=== PATIENT | female | born 1940 | race Caucasian/White ===

== ENCOUNTER → 2023-08-28 15:06 | Outpatient (REF) | payer OTHER, SELFPAY | LOC: DHVS 15:06 | PROVIDERS: ATTENDING PHYSICIAN Surgery Vascular Surgery; FAMILY PHYSICIAN Internal Medicine Geriatric Medicine | DX: I73.9 Peripheral vascular disease, unspecified (principal) | CPT/HCPCS: 93922; 93925 ==

== ENCOUNTER → 2023-09-10 13:27 | Outpatient (REF) | payer MEDICARE, SELFPAY | LOC: HWRAD 13:27 | PROVIDERS: ATTENDING PHYSICIAN Surgery Vascular Surgery; FAMILY PHYSICIAN Internal Medicine Geriatric Medicine | DX: I77.9 Disorder of arteries and arterioles, unspecified (principal) | CPT/HCPCS: 75635; Q9967 ==

== ENCOUNTER → 2023-10-19 13:11 | Outpatient (REF) | payer MEDICARE, SELFPAY | LOC: WDC 13:11 | PROVIDERS: ATTENDING PHYSICIAN Internal Medicine Geriatric Medicine | DX: Z12.31 Encounter for screening mammogram for malignant neoplasm of breast (principal) | CPT/HCPCS: 77063; 77067 ==

== ENCOUNTER 2024-01-05 08:11 | Inpatient (IN) | payer OTHER, SELFPAY ==
[2023-12-30 10:21] VITALS: BMI 28.0
[2023-12-30 10:47] LABS: % Immature Granulocytes 0.2 % (0-0.5); % Lymphocytes 12.1 % (20.5-51.1); % Monocytes 4.1 % (1.7-9.3); % Neutrophils 83.6 % (42.2-75.2); Absolute Lymphocytes 0.6 10^3/uL (1.2-3.4); Absolute Monocytes 0.2 10^3/uL (0.1-0.6); Absolute Neutrophils 4.3 10^3/uL (1.4-6.5); Hematocrit 37.4 % (37.0-47.0); Hemoglobin 13.2 g/dL (12.0-16.0); Mean Corp Hgb Conc. 35.3 g/dL (33.0-37.0); Mean Corpuscular Hgb 33.7 pg (27.0-31.0); Mean Corpuscular Volume 95.4 fL (81.0-99.0); Mean Platelet Volume 9.8 fL (7.4-10.4); Nucleated Red Blood Cells % 0 %; Platelet Count 255 10^3/uL (130-400); Red Blood Cell Count 3.92 10^6/uL (4.20-5.40); White Blood Cell Count 5.1 10^3/uL (4.8-10.8)
[2023-12-30 10:59] LABS: INR 1.17; PT 14.9 Sec (11.4-14.6)
[2023-12-30 11:00] LABS: APTT 37.5 Sec (23.4-35.0)
[2023-12-30 11:15] LABS: Blood Urea Nitrogen 22 mg/dl (7-17); Calcium 10.3 mg/dl (8.4-10.2); Carbon Dioxide 22 mmol/L (22-30); Chloride 101 mmol/L (98-107); Estimated Creatinine Clearance 59 ml/min; Glucose 145 mg/dl (70-99); Potassium 4.5 mmol/L (3.5-5.1); Sodium 135 mmol/L (135-145); eGFR > 60.00
[2024-01-05] VITALS (34 sets, daily range): BP systolic 123–197; BP diastolic 61–119; BMI 28.5
[2024-01-05] MEDS: BACTROBAN NASAL 1 GRAM NASAL (08:52)
[2024-01-05] MEDS: PERIDEX 0.12% ORAL RINSE 15 ML PO (08:52)
[2024-01-05] MEDS: NSS 500 IV (08:52)
--- NOTE | 2024-01-05 10:50 | W.IMMPOSTOP ---
Surgical Immed Post Op Note
-
Primary Surgeon: Brendan Andres III, MD
Assisting Surgeon: Santy Crawley MD
Pre-op Diagnosis: Right femoral artery stenosis
Post-op Diagnosis: Right femoral artery stenosis
Procedure Performed: Right femoral artery endarterectomy & patch angioplasty
Anesthesia Type: General
Specimen / Cultures: NA
Estimated Blood Loss: 20cc
Complications: NA
Operative Findings:
A right groin cutdown was performed to expose the right common femoral artery. Lymphatic tissues and superficial venous branches were tied off. Proximal and distal control of the vessel was obtained. Heparin was administered @ 100u/kg. Using a
scalpel and rivera scissors, an arteriotomy was created. Calcified plaque was freed and removed. A bovine pericardial patch was sized and fashioned to fit the arteriotomy accordingly. Using a running 6-0 prolene suture, the patch was sewn to the
arteriotomy. Antegrade wire access was established through the pericardial patch. The distal SFA was shockwaved and a 7Fr drug coated balloon was used for balloon angioplasty. Angiography following demonstrated brisk open flow. Hemostasis was
reinforced with repair stitches and overlying hemostatic agents. The overlying tissue was closed with running 2-0 and 3-0 vicryls. The skin was closed using alternating florin and 2-0 nylon. Distal extremity pulses were dopplerable following the
procedure.
--- NOTE | 2024-01-05 11:20 | W.SUR.PREOP ---
Pre-Operative Surgical Note
-
I have examined this patient prior to the performance of the scheduled procedure.
The patient's condition is unchanged from the time of the current History and
Physical and the patient is able to undergo the scheduled procedure.
[2024-01-05 12:37] LABS: ACT-LR - POC 285 Seconds (116-155)
[2024-01-05 13:40] LABS: ACT-LR - POC 237 Seconds (116-155)
[2024-01-05] MEDS: SUBLIMAZE 50 MCG IV (15:09)
[2024-01-05] MEDS: NSS 1000 IV (15:37)
[2024-01-05] MEDS: SUBLIMAZE 25 MCG IV (15:39)
[2024-01-05 15:46] LABS: Hematocrit 31.6 % (37.0-47.0); Mean Corp Hgb Conc. 34.8 g/dL (33.0-37.0); Mean Corpuscular Hgb 33.2 pg (27.0-31.0); Mean Corpuscular Volume 95.5 fL (81.0-99.0); Mean Platelet Volume 9.9 fL (7.4-10.4); Platelet Count 202 10^3/uL (130-400); Red Blood Cell Count 3.31 10^6/uL (4.20-5.40); Red Cell Dist. Width 13.2 % (11.5-14.5); White Blood Cell Count 5.6 10^3/uL (4.8-10.8)
[2024-01-05 15:58] LABS: APTT 35.9 Sec (23.4-35.0); INR 1.16; PT 14.6 Sec (11.4-14.6)
--- NOTE | 2024-01-05 16:02 | CON.INTV ---
Consultation
Consultation Request
Date/Time Consultation Requested: 01/05/2024
Date/Time Consultation Performed: 01/05/2024
Requesting Provider: Dr. Andres
Performing Provider: Dr. Yaakov Blake
Reason for Consultation: Status post right femoral artery endarterectomy and patch angioplasty
Medical History
-
History of Present Illness:
83-year-old woman with past medical history significant for peripheral arterial disease and multiple other comorbidities noted. Electively admitted for right femoral revascularization.
Underwent right femoral endarterectomy on 01/05/2024. No immediate complications.
Currently in the critical care unit for hemodynamic monitoring and neurovascular checks per protocol.
Patient denies any particular complaints
Pain is controlled.
Denies any shortness of breath
Hemodynamically stable not requiring vasopressors or antihypertensive.
[facility] records reviewed.
Past Medical History
Past Medical History: Other ( See assessment and plan section)
Social History
Tobacco: Non-smoker
Alcohol: None
Drug: None
Personal:
Living: With Family
Family History
Family History: Reviewed & Not Pertinent
Allergies / Home Medications
Allergies
Allergy/AdvReac Type Severity Reaction Status Date / Time
adhesive tape Allergy Rash Verified 01/05/24 08:58
gluten Allergy Constipation/ Verified 01/05/24 08:58
Abdominal
pain/
Headache
NSAIDS (Non-Steroidal Allergy Oral ulcers Verified 01/05/24 08:58
Anti-Inflamma
oxycodone Allergy Severe Verified 01/05/24 08:58
constipation
Sulfa (Sulfonamide Allergy Diarrhea/Abdominal Verified 01/05/24 08:58
Antibiotics) pain
Home Medications
�Medication �Instructions �Recorded �Confirmed �Last Taken �Type
alprazolam 1 mg tablet 1.5 mg PO HS Mental Health/Anxiety 07/15/09 01/05/24 01/04/24 23:00 History
atorvastatin 10 mg tablet 10 mg PO HS High cholesterol 06/10/21 01/05/24 01/04/24 23:00 History
ascorbic acid (vitamin C) 500 mg 500 mg PO HS Supplement 06/18/21 01/05/24 01/03/24 18:00 History
tablet (Vitamin C)
calcium carbonate 1,200 mg PO QPM Supplement 06/18/21 01/05/24 01/03/24 18:00 History
omega-3 650 mg-dha 400 mg-epa 200 1 ea PO BID Supplement 06/18/21 01/05/24 01/03/24 10:00 History
mg-fish oil-vit D3 300 unit
capsule (Dingle-3 Plus Vitamin D3)
escitalopram oxalate 10 mg tablet 20 mg PO DAILY Depression 07/01/21 01/05/24 01/03/24 10:00 History
Prevagen 1 tab PO DAILY 12/25/23 01/05/24 01/03/24 10:00 History
Saccharomyces boulardii 250 mg 250 mg PO HS 12/25/23 01/05/24 01/02/24 23:00 History
capsule (Florastor)
acetaminophen 650 mg 1,300 mg PO Q12H 12/25/23 01/05/24 01/04/24 23:00 History
tablet,extended release
apixaban 2.5 mg tablet (Eliquis) 5 mg PO BID Blood clot 12/25/23 01/05/24 01/03/24 10:00 History
prevention/tx
diltiazem HCl 120 mg capsule,24 120 mg PO DAILY 12/25/23 01/05/24 01/04/24 08:00 History
hr,extended release
docusate sodium 100 mg capsule 100 mg PO DAILY 12/25/23 01/05/24 01/03/24 10:00 History
fexofenadine-pseudoephedrine ER 1 tab PO DAILY PRN allergies 12/25/23 12/25/23 Unknown History
180 mg-240 mg tablet,ext.release
24 hr (Kiya-D 24 Hour)
mecobalamin (vitamin B12) 1,000 1,000 mcg PO HS 12/25/23 01/05/24 01/03/24 18:00 History
mcg chewable tablet (B12 Active)
sennosides 8.6 mg tablet (senna) 17.2 mg PO DAILY PRN constipation 12/25/23 01/05/24 01/02/24 23:00 History
folic acid 1 mg tablet 2 mg PO DAILY 01/05/24 01/05/24 01/03/24 18:00 History
Review of Systems
-
History Source: Patient
All other systems: Negative unless noted
Vitals / Labs / Diagnostic Testing
Vital Signs
Temp Pulse Resp BP Pulse Ox
97.3 F 69 16 141/64 97
01/05/24 15:55 01/05/24 15:15 01/05/24 15:15 01/05/24 15:15 01/05/24 15:15
Lab Data
01/05/24 15:36
Laboratory Results
01/05/24
15:36
PT 14.6
INR 1.16
APTT 35.9 H
Diagnostic Testing:
Physical Exam
-
HEENT: Normocephalic
Cardiovascular: S1/S2
Respiratory: Clear and Non-Labored Respirations
GI: Soft and Non Distended
Neurology: Awake, Alert, Oriented and No Motor Deficits
Skin: Warm
General: Comfortable
Assessment
-
Right femoral artery stenosis: Status post right femoral artery endarterectomy and patch angioplasty. 01/05/2024-Dr. Andres
Conditions present prior to admission:
Status post left femoral artery endarterectomy with patch angioplasty 06/18/21
Left groin seroma
Status post cut down/drainage of seroma/fat necrosis debridement/copious irrigation and pedicled sartorius muscle flap-Dr. Andres-07/02/21
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
Considered provoked event after long car trip on 04-13-21, total driving time plus sitting down at gathering that day was 9.5 hrs,
DVT diagnosed 04-17-21. RLE doppler US 05-30-21: interval resolution of R gastrocnemius DVT.
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
Osteopenia
Anxiety
Migraine
H/o partial colonic resection for possible volvulus 2009
Basal cell carcinoma skin (nose), removed. Following with Derm-s/p removal of several precancerous skin lesions over the years
Fibromyalgia
Celiac disease
Nonsmoker
Chronic constipation
Osteopenia
Osteoporosis
Malignant neoplasm of the skin
Degenerative joint disease
Raynaud syndrome
Depression
Agoraphobia with panic attacks
Colon resection for possible volvulus
Hyperlipidemia
Celiac disease
Ovarian cyst
Appendectomy/bone marrow biopsy/cataract surgery/cervical cone/thumb joint surgery/exploratory lap for SBO/cervical spine surgery/endarterectomy
Chest x-ray 12/30/2023: Reviewed, showed no acute abnormalities
Echocardiogram 05/06/2022: Reviewed showed normal biventricular function. Stage I diastolic dysfunction. No significant valvular disease.
Plan
Postoperative surgical intensive care unit monitoring
Supplemental oxygen as needed
Incentive spirometry
Aspiration precautions
Neuro and vascular checks per protocol
Vascular surgery following-correspondence and operative notes reviewed analgesia with narcotics as needed. Monitor respiratory status closely.
Follow hemoglobin
Transfuse as needed
Monitor platelet count
Monitor blood sugars
Insulin supplementation if needed
Restart outpatient antihypertensive
Monitor hemodynamics
Replace electrolytes
Monitor renal function
DVT prophylaxis
Early nutrition
Early mobilization
[2024-01-05 16:03] LABS: Blood Urea Nitrogen 17 mg/dl (7-17); Calcium 8.3 mg/dl (8.4-10.2); Carbon Dioxide 24 mmol/L (22-30); Chloride 107 mmol/L (98-107); Estimated Creatinine Clearance 69 ml/min; Glucose 116 mg/dl (70-99); Potassium 4.1 mmol/L (3.5-5.1); Sodium 136 mmol/L (135-145); eGFR > 60.00
[2024-01-05] MEDS: ASPIR LOW (ENTERIC COATED) 81 MG PO (16:18)
--- NOTE | 2024-01-05 16:43 | PTCARENOTE ---
Rec'd patient from PACU around 1600. Patient alert and oriented. Vitals stable. JAYA drain on right groin, green light blinking. Dressing c/d/i. Pulses palpable. Patient educated on plan of care. Hourly neurovascular checks overnight. NSR on tele
monitor. Rate in the 60's. Lung sounds diminished throughout. Pulse ox 96% on 2L nc. Andres in place for critical I/O's. IVFs infusing as ordered through peripheral INT.
--- NOTE | 2024-01-05 16:52 | OR.RPT ---
Operative Report
Operative Report
Date of Operation: 01/05/2024
Pre Op Diagnosis: Severely calcified right common femoral artery and superficial femoral artery occlusive disease with debilitating claudication
Post Op Diagnosis: Severely calcified right common femoral artery and superficial femoral artery occlusive disease with debilitating claudication
Procedure:
1.) RIGHT common femoral artery endarterectomy with patch angioplasty using bovine pericardium
2.) Intravascular lithotripsy to right superficial femoral artery occlusion (7 mm x 60 mm M5+ shockwave balloon)
3.) Drug-coated balloon angioplasty to right superficial femoral artery (6 mm x 220 mm Lutonix drug-coated balloon)
4.) Antegrade diagnostic arteriogram of the right lower extremity
Surgeon: Brendan Andres III, MD
Facetor: Santy Crawley MD PGY-2
Anesthesia: General
Complications: None
Estimated Blood Loss: 100 cc
History and Indications for Procedure: 83-year-old female with severe calcified occlusive disease involving the right common femoral artery and superficial femoral artery manifesting as debilitating right lower extremity claudication.
Procedure in Detail: Anju Pruitt was correctly identified and placed supine on the operating table. After adequate induction of anesthesia, the abdomen, pelvis, and bilateral groins to the thighs were prepped and draped in usual sterile fashion.
Preoperative antibiotics were administered. A time-out procedure was performed with the nursing and anesthesia staff confirming the patient's identity as well as the nature and laterality of the procedure. I made a vertical incision over the right
groin. Electrocautery was used to dissect the subcutaneous tissue. Lymphatics were ligated and divided between silk ties. Through a combination of sharp dissection and electrocautery, I identified the common femoral artery. The common femoral
artery was encircled with a vessel loop underneath the inguinal ligament. I continued dissection on the distal right external iliac artery well under the inguinal ligament to obtain a clamp site. Dissection was then continued distally. The femoral
bifurcation was identified as well as the proximal superficial femoral artery and profunda femoral artery. The proximal superficial femoral artery and proximal profunda femoral artery were both encircled with vessel loops.
The patient was systemically heparinized. After 5 minutes of circulation time, we proceeded with the endarterectomy. The proximal and distal vessel loops were secured. An 11-blade and Jackson scissors were used to make and extend the arteriotomy on
the common femoral artery. The arteriotomy was carried distally to the proximal superficial femoral artery. The arteriotomy was extended up to the proximal common femoral artery. An endarterectomy was performed in the standard fashion with a [place]
elevator. The proximal extent of the plaque was transected and then additional elements of plaque were pulled out from the distal external iliac artery using forceps and clamps. The distal end of the plaque feathered nicely at the origin of the
superficial femoral artery. The endarterectomy plane was then irrigated with heparinized saline solution and any loose fronds of tissue were removed. I brought onto the field a pre-cut piece of bovine pericardium and this was fashioned
appropriately to be used as a patch. The patch was then sewn in place using a running 5-0 Prolene suture. Prior to the completion of the anastomosis, we allowed the artery to forward and back bleed and then flushed the area under the patch to
remove any thrombus or debris. The anastomosis was then completed. The proximal and distal vessel loops were then released. There was an excellent pulse within the common femoral artery, proximal superficial femoral artery and proximal profunda
femoral artery. The suture line was closely inspected for hemostasis which was achieved.
Under direct visualization I then punctured the distal aspect of the patch antegrade with a micropuncture needle. The micro dilator and sheath were then placed. A right lower extremity arteriogram was then performed which demonstrated a heavily
calcified occlusion involving the superficial femoral artery. Distal reconstitution of the popliteal artery was identified. I then upsized to a 7 Bulgarian sheath over a Bentson wire. Under roadmap guidance using a [place] catheter and Glidewire
I navigated across the calcified occlusion in the superficial femoral artery. The catheter and wire were advanced into the popliteal artery distally. I confirmed proper position in the true lumen with an arteriogram. I then exchanged out for a
0.014 wire. Due to the heavily calcified nature of the arterial disease and in an effort to modify the calcium to achieve maximum luminal gain with endovascular intervention I elected to proceed with intravascular lithotripsy. A 7 mm x 60 mm
Shockwave balloon was placed across the calcified occlusive disease under roadmap guidance. Alternating rounds of lithotripsy pulse delivery at sub-nominal pressure and angioplasty at nominal pressure was performed across the stenosis. In between
rounds of pulse delivery and angioplasty the balloon was deflated and repositioned under roadmap guidance. All 300 pulses were delivered.
Subsequent arteriogram demonstrated an excellent technical result. The superficial femoral artery was patent. Several areas of focal dissection were identified. I then brought into position a drug-coated balloon under roadmap guidance. This was
a 6 mm x 220 mm Lutonix DCB. The balloon was positioned in the desired location under roadmap guidance and inflated to nominal pressure. The balloon was held at nominal pressure for 3 minutes before slowly deflating and removing over the wire.
Subsequent arteriogram demonstrated an excellent technical result with a widely patent superficial femoral artery and brisk flow. Several non flow limiting focal dissections were identified in the SFA. No significant residual stenosis was
identified.
Satisfied with this result, we then concluded the procedure. The sheath was removed and the patch puncture site was repaired primarily with 5-0 Prolene suture. Heparin was reversed with protamine. The suture lines were closely inspected for
hemostasis which was achieved. The wound was irrigated with copious amounts of warm saline solution. Hemostasis was achieved within the wound bed. The wound was then closed in multiple layers and sterile dressings were applied.
The patient tolerated the procedure well and was taken to the recovery room in good condition.
Attestation: I was present and responsible for the entire procedure
Signed:
Brendan Andres III, MD
[facility]
[phone] (cell)
[2024-01-05 16:56] LABS: Magnesium 2.2 mg/dl (1.6-2.3)
--- NOTE | 2024-01-05 17:06 | PTCARENOTE ---
Patient tolerating clears.
[2024-01-05] MEDS: OSCAL CAL 500 1000 MG PO (17:37)
--- NOTE | 2024-01-05 17:49 | PTCARENOTE ---
Patient weaned to RA.
[2024-01-05] MEDS: HEPARIN 5000 UNITS SC (19:26)
[2024-01-05] MEDS: COLACE 100 MG PO (19:26)
--- NOTE | 2024-01-05 20:00 | PTCARENOTE ---
Rec'd pt resting in bed, denies pain at present, PRITCHETT, cooperative, SR w/ occas pac/pvc, bp stable, R groin dsg intact w/ deidra dsg- green light on, pedal pulses normal, weak post tibial pulses, feet warm, normal sensation, skin warm/dry, RA, lungs
w/ decr breath sounds in bases, sat 98, enc to use IS- reaches 1500ml, + bowel sounds, no bm, abd rouns, soft, no n/v, jannette diet, duarte draining yellow urine
[2024-01-05] MEDS: VITAMIN C 500 MG PO (21:14)
[2024-01-05] MEDS: FLORASTOR 250 MG PO (21:14)
[2024-01-05] MEDS: TYLENOL 650 MG PO (21:14)
[2024-01-05] MEDS: VITAMIN B-12 1000 MCG PO (21:14)
[2024-01-05] MEDS: LIPITOR 10 MG PO (21:14)
--- NOTE | 2024-01-05 21:16 | PTCARENOTE ---
tylenol 650 mg given for R groin incis pain & chronic R knee pain
[2024-01-05] MEDS: LOPRESSOR 5 MG IV (23:19)
--- NOTE | 2024-01-05 23:20 | PTCARENOTE ---
Adam Landrum NP aware of bp, lopressor 5mg iv given as ordered
[2024-01-06] VITALS (29 sets, daily range): BP systolic 102–175; BP diastolic 42–94; BMI 29.2
[2024-01-06] MEDS: XANAX 1.5 MG PO ×2 (00:05→22:57)
--- NOTE | 2024-01-06 00:10 | PTCARENOTE ---
sys reviewed, bp improved, N/V checks unch
[2024-01-06] MEDS: ROXICODONE 5 MG PO ×4 (00:51→22:37)
--- NOTE | 2024-01-06 00:52 | PTCARENOTE ---
oxycodone 5mg po given for R groin pain
[2024-01-06] MEDS: APRESOLINE 10 MG IV ×2 (00:59→22:34)
--- NOTE | 2024-01-06 01:00 | PTCARENOTE ---
apresoline 10 mg iv given for bp
--- NOTE | 2024-01-06 03:00 | DOWNTIME ---
There was a [employer] Client Tack Driller Downtime on 01/06/2024 from 0100 to 01/06/2024 at 0255. Downtime documentation of patient's care, including medication administrations, has been reconciled in the electronic record per guidelines. Refer to the
patient's paper chart under the miscellaneous tab to see printed paper medication records and downtime forms.
[2024-01-06] MEDS: NSS 1000 IV (03:36)
--- NOTE | 2024-01-06 03:47 | PTCARENOTE ---
sys reviewed, changes noted
[2024-01-06 03:54] LABS: Hematocrit 29.6 % (37.0-47.0); Hemoglobin 10.5 g/dL (12.0-16.0); Mean Corp Hgb Conc. 35.5 g/dL (33.0-37.0); Mean Corpuscular Hgb 33.2 pg (27.0-31.0); Mean Corpuscular Volume 93.7 fL (81.0-99.0); Mean Platelet Volume 10.1 fL (7.4-10.4); Platelet Count 222 10^3/uL (130-400); Red Blood Cell Count 3.16 10^6/uL (4.20-5.40); Red Cell Dist. Width 13.2 % (11.5-14.5); White Blood Cell Count 9.6 10^3/uL (4.8-10.8)
[2024-01-06 04:17] LABS: INR 1.09; PT 13.9 Sec (11.4-14.6)
[2024-01-06 04:18] LABS: APTT 32.8 Sec (23.4-35.0)
[2024-01-06 06:07] LABS: Blood Urea Nitrogen 15 mg/dl (7-17); Calcium 8.8 mg/dl (8.4-10.2); Carbon Dioxide 22 mmol/L (22-30); Chloride 106 mmol/L (98-107); Estimated Creatinine Clearance 70 ml/min; Glucose 121 mg/dl (70-99); Potassium 4.3 mmol/L (3.5-5.1); Sodium 135 mmol/L (135-145); eGFR > 60.00
[2024-01-06] MEDS: COLACE 100 MG PO ×2 (07:14→20:18)
[2024-01-06] MEDS: ASPIR LOW (ENTERIC COATED) 81 MG PO (07:14)
[2024-01-06] MEDS: LEXAPRO 20 MG PO (07:14)
[2024-01-06] MEDS: FOLVITE 2 MG PO (07:14)
[2024-01-06] MEDS: CARDIZEM CD 120 MG PO (07:15)
[2024-01-06] MEDS: HEPARIN 5000 UNITS SC ×2 (07:15→20:18)
[2024-01-06] MEDS: SENOKOT 17.2 MG PO (07:15)
--- NOTE | 2024-01-06 07:45 | SUR.OPER ---
0700 patient in bed. vSS. RT groin pain 6/10 pain scale level. Incision soft to touch . JAYA dressing in place . RT and left posterior tibial artery and left and rt dorsalis pedis present via doppler . Andres draining clear yellow urine. Roxicodone
per prn order adm for pain call harper within reach Neuro check wnl
--- NOTE | 2024-01-06 08:09 | W.PN.VS ---
Addendum entered and electronically signed by Brendan Andres III, MD 01/06/24 12:48:
This patient was seen and examined with LYNDON Albert. I agree with the history and physical exam as well as the assessment and plan.
Signed:
Brendan Andres III, MD
[facility]
[phone] (nhov)
Original Note:
Today's Communication / Plan
-
Patient seen evaluated bedside with Dr. Brendan Andres III, below plan reviewed with attending.
Assessment/Plan
-
Assessment: 83-year-old female POD #1 right femoral endarterectomy with intravascular lithotripsy to right superficial femoral artery occlusion, drug-coated balloon angioplasty to right superficial femoral artery, antegrade diagnostic arteriogram of
the right lower extremity
Plan:
Discontinue Andres catheter
Discontinue IV fluids
Out of bed to chair with progression to ambulation as tolerated
Will restart home anticoagulation of Eliquis likely tomorrow
Continue close ICU monitoring today
PT evaluation
Continue neurovascular checks
Continue to encourage incentive spirometry
Given recent endovascular intervention with drug-coated balloon angioplasty would continue antiplatelet of aspirin 81 mg p.o. daily
Subjective Data
-
Date of Service: January 06, 2024
Patient seen and examined at bedside, offers no complaints. Reports well-managed postoperative pain. Denies nausea, vomiting, fever, and chills.
Objective Data
-
Vital Signs
Temp Pulse Resp BP Pulse Ox
97.5 F 67 11 120/69 94
01/06/24 07:13 01/06/24 07:15 01/06/24 07:13 01/06/24 07:15 01/06/24 06:00
Intake and Output
01/05/24 01/06/24 01/07/24
06:59 06:59 06:59
Intake Total 1960 / 2139 180 / 180
Output Total 2610 / 2935 325 / 325
Balance -650 / -795 -145 / -145
Intake:
Oral fluids 500 / 600 100 / 100
IV fluids (Total) 1460 / 1540 80 / 80
NSS 340 / 340
Nss 1,000 ml @ 80 mls/hr IV . 1120 / 1200 80 / 80
[id number] [facility] Rx#:[id number]
Output:
Urine, Andres 261 / 5 325 / 325
Lab Results
01/06/24 03:41
01/06/24 05:29
Calcium 8.8 mg/dl (8.4-10.2) 01/06/24 05:29
Magnesium 2.2 mg/dl (1.6-2.3) 01/05/24 15:36
Physical Exam
-
AAOx3, no apparent distress
No tachycardia
No dyspnea on room air
ABD soft, nontender, nondistended
Right groin deidra dressing CDI, no evidence of hematoma, all surrounding compartments soft
Right foot warm, DP pulse +1 palpable confirmed with Doppler, PT by Doppler
--- NOTE | 2024-01-06 08:49 | PTCARENOTE ---
OOB chair one person minimum assist with RW for balance. OOB chair. Indwelling Andres removed at 08:30 . call harper and phone within reach
--- NOTE | 2024-01-06 08:49 | W.PN.INTV ---
Today's Communication / Plan
Recommendations
Continue postoperative care
Increase activity as able
Physical therapy
Eventually restart anticoagulation
Analgesia
Assessment
-
Right femoral artery stenosis: Status post right femoral artery endarterectomy and patch angioplasty. 01/05/2024-Dr. Andres
Conditions present prior to admission:
Status post left femoral artery endarterectomy with patch angioplasty 06/18/21
Left groin seroma
Status post cut down/drainage of seroma/fat necrosis debridement/copious irrigation and pedicled sartorius muscle flap-Dr. Andres-07/02/21
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
Considered provoked event after long car trip on 04-13-21, total driving time plus sitting down at gathering that day was 9.5 hrs,
DVT diagnosed 04-17-21. RLE doppler US 05-30-21: interval resolution of R gastrocnemius DVT.
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
Osteopenia
Anxiety
Migraine
H/o partial colonic resection for possible volvulus 2009
Basal cell carcinoma skin (nose), removed. Following with Derm-s/p removal of several precancerous skin lesions over the years
Fibromyalgia
Celiac disease
Nonsmoker
Chronic constipation
Osteopenia
Osteoporosis
Malignant neoplasm of the skin
Degenerative joint disease
Raynaud syndrome
Depression
Agoraphobia with panic attacks
Colon resection for possible volvulus
Hyperlipidemia
Celiac disease
Ovarian cyst
Appendectomy/bone marrow biopsy/cataract surgery/cervical cone/thumb joint surgery/exploratory lap for SBO/cervical spine surgery/endarterectomy
Chest x-ray 12/30/2023: Reviewed, showed no acute abnormalities
Echocardiogram 05/06/2022: Reviewed showed normal biventricular function. Stage I diastolic dysfunction. No significant valvular disease.
Plan
Postoperative day 1
Stable hemodynamically overnight pain is controlled
Currently sitting out of bed
Not requiring supplemental oxygen
Increase activity as tolerated
Incentive spirometry encouraged
Neuro and vascular checks per protocol
Vascular surgery following-maintain ICU level of care for now.
Follow hemoglobin currently 10.5. Stable
No evidence for hematoma on bilateral groin
Monitor blood sugars
Insulin supplementation if needed
Continue outpatient antihypertensive medication.
Blood pressure still
DVT prophylaxis-heparin subcu for now.
Restart anticoagulation when cleared by surgery
Physical therapy/Occupational Therapy as tolerated
-
Maintain ICU level of care with neurovascular checks until cleared by vascular surgery.
Patient is transfer out of the ICU, critical care team will sign off.
Subjective Dataa
Subjective Data
Date of Service:
Date of Service: January 06, 2024
Chief Complaint: Er Manager Follow Up (Status post femoral endarterectomy)
Subjective:
Patient states that her pain is controlled.
Currently sitting out of bed.
Denies shortness of breath or any abdominal discomfort.
Tolerated diet last night.
Review of Systems
Cardiopulmonary: Dyspnea (n) and Dyspnea on Exertion (n)
GI: Abdominal Pain (n) and Nausea (n)
Objective Data
Data Reviewed
Vital Signs / I&O / Oxygen:
Vital Signs
Temp Pulse Resp BP Pulse Ox
97.5 F 67 11 120/69 94
01/06/24 07:13 01/06/24 07:15 01/06/24 07:13 01/06/24 07:15 01/06/24 06:00
Intake and Output
01/05/24 01/06/24 01/07/24
06:59 06:59 06:59
Intake Total 1960 / 2140 180 / 180
Output Total 2610 / 2935 325 / 325
Balance -650 / -795 -145 / -145
SaO2 94
Nasal Cannula flow liters per 2
minute
Physical Exam
General: Respiratory Distress (n) and Comfortable
HEENT: Normocephalic
Cardiovascular: S1-S2
Respiratory: Clear and Non-Labored Respirations
GI: Soft and Non Distended
Neurology: Awake, Alert and AO x 3
Skin: Warm, Other (Peripheral pulses present) and Other (Bilateral groin incisions without hematoma)
Labs/Micro/Reports
Lab Data
01/06/24 03:41
01/06/24 05:29
Laboratory Results
01/05/24 01/06/24
15:36 03:41
PT 14.6 13.9
INR 1.16 1.09
APTT 35.9 H 32.8
--- NOTE | 2024-01-06 11:59 | PN.CDI ---
CDI
- -
CDI:
Physician Documentation Request
Admit Date: 01/05/24 08:11
Dear Radha HANEY,
Please review the following and provide your response in the progress notes.
Clinical Indicators:
The diagnosis of atelectasis was included in the signed CXR on 01/05/24
Pt admitted for right femoral artery endarterectomy and patch angioplasty
01/05/24 CXR: 'Top normal in size. No evidence of congestive heart failure. Subtle linear stranding at the left lung base, consistent with atelectasis...'
01/05 Vascular Surg. PN: 'Continue to encourage incentive spirometry'
Please indicate in your progress notes if you are in agreement that the above diagnosis is valid for this patient:
Atelectasis is a valid diagnosis (Please include it in your progress notes)
Atelectasis is not a valid diagnosis for this patient
Other
Use of terms such as suspected, likely, concern for, or probable are acceptable for a diagnosis that is being evaluated, monitored or treated as if it exists and can be coded in the inpatient setting, when documented at the time of discharge.
Thank you,
Jen Galindo RN, BSN
CDI Specialist
Available via [place] [employer]
Please use your independent medical judgment in providing your response.
--- NOTE | 2024-01-06 14:48 | CM ---
CM following re: discharge planning.
Reviewed pt's chart, met with pt.
Pt is an 83 year old female, admitted with primary dx of POD #1 right femoral endarterectomy.
Pt reports she has been living with her in an independent apartment at [facility], has2 supportive daughters. 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 No DME, VN or SNF history. pt stated she is awaiting PT evaluations,
she feels she will need VN services and pt is requested [facility] VN.
PT and OT evaluations pending.
PCP: Filemon Roach
Pharmacy: [facility].
D/C plan; return back to her independent apartment at [facility] with anticipated [facility] VN and family support. to transport at discharge.
CM will follow with discharge plan updates as hospitalization progresses
--- NOTE | 2024-01-06 15:20 | PTCARENOTE ---
Patient ambulated from room 3364 to back IMU and back with walker and without without difficulties . Good balance and gait . Aware of her physical limitations
[2024-01-06] MEDS: OSCAL CAL 500 1000 MG PO (18:16)
--- NOTE | 2024-01-06 21:19 | PTCARENOTE ---
received patient from previous shift. alert and orientated. sitting up in chair visiting her family. pills taken by mouth. no c/o pain. ambulated the the BR with one assist and a walker. doppler pulses.
[2024-01-06] MEDS: VITAMIN C 500 MG PO (21:26)
[2024-01-06] MEDS: FLORASTOR 250 MG PO (21:26)
[2024-01-06] MEDS: VITAMIN B-12 1000 MCG PO (21:26)
[2024-01-06] MEDS: LIPITOR 10 MG PO (21:27)
[2024-01-07] VITALS (28 sets, daily range): BP systolic 100–150; BP diastolic 54–92; BMI 29.1
--- NOTE | 2024-01-07 03:30 | PTCARENOTE ---
pt ambulating to the bathroom with one assist and a walker. BP elevate given PRN hydralazine as ordered. pt also c/o a headache. given PRN oxy.
[2024-01-07 04:07] LABS: Hematocrit 31.9 % (37.0-47.0); Hemoglobin 11.2 g/dL (12.0-16.0); Mean Corp Hgb Conc. 35.1 g/dL (33.0-37.0); Mean Corpuscular Hgb 32.7 pg (27.0-31.0); Platelet Count 211 10^3/uL (130-400); Red Blood Cell Count 3.43 10^6/uL (4.20-5.40); Red Cell Dist. Width 13.5 % (11.5-14.5); White Blood Cell Count 11.3 10^3/uL (4.8-10.8)
[2024-01-07 04:31] LABS: Blood Urea Nitrogen 16 mg/dl (7-17); Carbon Dioxide 24 mmol/L (22-30); Chloride 100 mmol/L (98-107); Estimated Creatinine Clearance 70 ml/min; Glucose 106 mg/dl (70-99); Potassium 4.2 mmol/L (3.5-5.1); Sodium 130 mmol/L (135-145); eGFR > 60.00
[2024-01-07] MEDS: ROXICODONE 5 MG PO (06:37)
--- NOTE | 2024-01-07 08:00 | PTCARENOTE ---
Assumed care of patient. Pt rec'd A&Ox3. Pleasant. Had rec'd po oxy this am....post pain assessment as follow -> 0/10 pain while lying still. 4-5/10 right groin area w/ activity. S1 S2 irregular w/ NSR/PAC's on monitor. DP/PT's by doppler. On
R/A...sats 98%. Lungs clear. Abdomen round...+BS. Encouraged to order breakfast. Takes po meds w/o issue. Voids in bathroom. Skin pale in color. Right groin CHAN w/ florin and sutures....JAYA dressing removed by vascular team. LH 18P capped.
LFA 20P capped. LAC 18P capped. Low cholesterol/gluten free diet. Breakfast ordered. VS documented. Call harper within reach. Will continue to monitor.
[2024-01-07] MEDS: COLACE 100 MG PO ×2 (08:28→20:35)
[2024-01-07] MEDS: SENOKOT 17.2 MG PO (08:28)
[2024-01-07] MEDS: CARDIZEM CD 120 MG PO (08:29)
[2024-01-07] MEDS: FOLVITE 2 MG PO (08:29)
[2024-01-07] MEDS: HEPARIN 5000 UNITS SC (08:29)
[2024-01-07] MEDS: ASPIR LOW (ENTERIC COATED) 81 MG PO (08:29)
[2024-01-07] MEDS: LEXAPRO 20 MG PO (08:29)
[2024-01-07] MEDS: LOPRESSOR 5 MG IV (08:39)
--- NOTE | 2024-01-07 08:45 | W.PN.VS ---
Addendum entered and electronically signed by Brendan Andres III, MD 01/07/24 14:57:
This patient was seen and examined with LYNDON Patel. I agree with the history and physical exam as well as the assessment and plan.
Signed:
Brendan Andres III, MD
[facility] Vascular Surgery
[phone] (ylot)
Original Note:
Today's Communication / Plan
-
Seen and assessed with Dr. Andres
Assessment/Plan
-
Assessment: 83-year-old female POD #2 right femoral endarterectomy with intravascular lithotripsy to right superficial femoral artery occlusion, drug-coated balloon angioplasty to right superficial femoral artery, antegrade diagnostic arteriogram of
the right lower extremity
Plan:
Ambulation
Restart Eliquis
EKG
Lopressor 5 mg IV
Cardiology consult for A-fib
Continue to encourage incentive spirometry
Given recent endovascular intervention with drug-coated balloon angioplasty would continue antiplatelet of aspirin 81 mg p.o. daily
Subjective Data
-
Date of Service: January 07, 2024
Patient seen at bedside this a.m. with Dr. Andres. Patient did well overnight, no events. No complaints at this time. Patient noted to be tachycardic starting this morning. Asymptomatic.
Objective Data
-
Vital Signs
Temp Pulse Resp BP Pulse Ox
99.1 F 140 20 112/70 97
01/07/24 07:31 01/07/24 08:39 01/07/24 06:02 01/07/24 08:39 01/06/24 21:09
Intake and Output
01/06/24 01/07/24 01/08/24
06:59 06:59 06:59
Intake Total 1960 / 2140 1110 / 1110
Output Total 2610 / 2935 675 / 675
Balance -650 / -795 435 / 435
Intake:
Oral fluids 500 / 600 1030 / 1030
IV fluids (Total) 1460 / 1540 80 / 80
NSS 340 / 340
Nss 1,000 ml @ 80 mls/hr IV . 1120 / 1200 80 / 80
[id number] [facility] Rx#:[id number]
Output:
Urine, Andres 2610 / 2935 525 / 525
Urine, Voided 150 / 150
Other:
Number of approximated LARGE 1
amounts of urine
Lab Results
01/07/24 03:50
01/07/24 03:50
Calcium 9.0 mg/dl (8.4-10.2) 01/07/24 03:50
Magnesium 2.2 mg/dl (1.6-2.3) 01/05/24 15:36
Physical Exam
-
AAOx3, no apparent distress
Tachycardia 120-140
No dyspnea on room air
ABD soft, nontender, nondistended
Right groin deidra dressing CDI, no evidence of hematoma, all surrounding compartments soft
Right foot warm, DP pulse +1 palpable confirmed with Doppler, PT by Doppler
[2024-01-07] MEDS: ELIQUIS 5 MG PO ×2 (08:58→20:35)
--- NOTE | 2024-01-07 09:00 | PTCARENOTE ---
aware of pt's afib on monitor. ECG done. Cardiology consulted. Will monitor closely.
--- NOTE | 2024-01-07 10:14 | CON.CAR ---
Consultation
Consultation Request
Date/Time Consultation Requested: 01/07/24, 9am
Date/Time Consultation Performed: 01/07/24, 930am
Requesting Provider: Mckenna
Performing Provider: Troy
Reason for Consultation: A fib with RVR
Medical History
-
Chief Complaint: A fib with RVR on tele
History of Present Illness:
83 yo female with PMH of paroxysmal A fib on eliquis, PAD, HTN, hyperlipidemia is admitted POD #1 s/p right femoral endarterectomy with intravascular lithotripsy to right superficial femoral artery occlusion, drug-coated balloon angioplasty to right
superficial femoral artery, antegrade diagnostic arteriogram of the right lower extremity.
We are consulted with A fib with RVR, noted on tele this AM.
She denies palps, SOB, CP, dizziness.
Past Medical History
Past Medical History: Arrhythmias (paroxysmal A fib), HTN, Hypercholesterolemia and Other (PAD)
Past Surgical History: Appendectomy and Other ( femoral endarterectomy)
Social History
Tobacco: Non-Smoker
Family History
Family History: Early CAD (none)
Allergies / Home Medications
Allergy/AdvReac Type Severity Reaction Status Date / Time
adhesive tape Allergy Rash Verified 01/05/24 08:58
gluten Allergy Constipation/ Verified 01/05/24 08:58
Abdominal
pain/
Headache
NSAIDS (Non-Steroidal AdvReac Oral ulcers Verified 01/05/24 16:39
Anti-Inflamma
oxycodone AdvReac Severe Verified 01/05/24 16:39
constipation
Sulfa (Sulfonamide AdvReac Diarrhea/Abdominal Verified 01/05/24 16:39
Antibiotics) pain
�Medication �Instructions �Recorded �Confirmed �Type
alprazolam 1 mg tablet 1.5 mg PO HS Mental Health/Anxiety 07/15/09 01/05/24 History
atorvastatin 10 mg tablet 10 mg PO HS High cholesterol 06/10/21 01/05/24 History
ascorbic acid (vitamin C) 500 mg 500 mg PO HS Supplement 06/18/21 01/05/24 History
tablet (Vitamin C)
calcium carbonate 1,200 mg PO QPM Supplement 06/18/21 01/05/24 History
omega-3 650 mg-dha 400 mg-epa 200 1 ea PO BID Supplement 06/18/21 01/05/24 History
mg-fish oil-vit D3 300 unit
capsule (Marion-3 Plus Vitamin D3)
escitalopram oxalate 10 mg tablet 20 mg PO DAILY Depression 07/01/21 01/05/24 History
Prevagen 1 tab PO DAILY Supplement 12/25/23 01/05/24 History
Saccharomyces boulardii 250 mg 250 mg PO HS Supplement 12/25/23 01/05/24 History
capsule (Florastor)
acetaminophen 650 mg 1,300 mg PO Q12H Pain 12/25/23 01/05/24 History
tablet,extended release
apixaban 2.5 mg tablet (Eliquis) 5 mg PO BID Blood clot 12/25/23 01/05/24 History
prevention/tx
diltiazem HCl 120 mg capsule,24 120 mg PO DAILY Heart 12/25/23 01/05/24 History
hr,extended release Disease/Condition
docusate sodium 100 mg capsule 100 mg PO DAILY STOOL SOFTENER 12/25/23 01/05/24 History
fexofenadine-pseudoephedrine ER 1 tab PO DAILY PRN allergies 12/25/23 12/25/23 History
180 mg-240 mg tablet,ext.release
24 hr (Kiya-D 24 Hour)
mecobalamin (vitamin B12) 1,000 1,000 mcg PO HS Supplement 12/25/23 01/05/24 History
mcg chewable tablet (B12 Active)
sennosides 8.6 mg tablet (senna) 17.2 mg PO DAILY PRN constipation 12/25/23 01/05/24 History
folic acid 1 mg tablet 2 mg PO DAILY Supplement 01/05/24 01/05/24 History
Review of Systems
-
History Source: Patient
All other systems: Negative unless noted
Musculoskeletal: Other (leg pain/stiffness)
Physical Exam
Vital Signs
Temp Pulse Resp BP Pulse Ox
99.1 F 140 20 112/70 97
01/07/24 07:31 01/07/24 08:39 01/07/24 06:02 01/07/24 08:39 01/06/24 21:09
Lab Results
01/07/24 03:50
01/07/24 03:50
Physical Exam
General: Well Developed, Well Nourished and No Apparent Distress
HEENT: Normocephalic, Anicteric and Moist Mucous Membranes
Respiratory: Clear and Non Labored Respirations
Cardiac: S1/S2 (normal), Irregular Rhythm (tachycardic), Murmur (none), Peripheral Edema (none) and JVD (none)
GI: Soft and Non Tender
Musculoskeletal: No Clubbing, No Cyanosis and No Edema
Skin: Warm and Dry
Neuro: AO x 3
Psych: Calm
Impression / Plan
-
83 yo female with PMH of paroxysmal A fib on eliquis, PAD, HTN, hyperlipidemia is admitted POD #1 s/p right femoral endarterectomy with intravascular lithotripsy to right superficial femoral artery occlusion, drug-coated balloon angioplasty to right
superficial femoral artery, antegrade diagnostic arteriogram of the right lower extremity.
We are consulted with A fib with RVR, noted on tele this AM.
# A fib with RVR
-h/o paroxysmal A fib
-eliquis 5mg bid has been resumed
-tele shows A fib occurred this AM around 0800, and was in sinus prior
-will use IV amiodarone to attempt rhythm control
-requires monitoring of tele
# PAD
-post op care per vascular surgery
-cont ASA, statin
# HTN
-BP stable: continue diltiazem
Data Reviewed
-
EKG: Tracing Personally Visualized and interpreted (A fib with RVR) and Other (Tele: NSR --> A fib with RVR)
Labs: Labs Reviewed by me
Old Records: Reviewed
[2024-01-07] MEDS: CORDARONE 103 MG IV (11:00)
--- NOTE | 2024-01-07 11:07 | W.PN.INTV ---
Today's Communication / Plan
Recommendations
Continue postoperative care
Continue Cardizem
Anticoagulation restarted
Cardiology consulted for atrial fibrillation
Transferred to telemetry from my perspective
Sign off
Assessment
-
Right femoral artery stenosis: Status post right femoral artery endarterectomy and patch angioplasty. 01/05/2024-Dr. Andres
New onset atrial fibrillation 01/07/2024
Conditions present prior to admission:
Status post left femoral artery endarterectomy with patch angioplasty 06/18/21
Left groin seroma
Status post cut down/drainage of seroma/fat necrosis debridement/copious irrigation and pedicled sartorius muscle flap-Dr. Andres-07/02/21
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
Considered provoked event after long car trip on 04-13-21, total driving time plus sitting down at gathering that day was 9.5 hrs,
DVT diagnosed 04-17-21. RLE doppler US 05-30-21: interval resolution of R gastrocnemius DVT.
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
Osteopenia
Anxiety
Migraine
H/o partial colonic resection for possible volvulus 2009
Basal cell carcinoma skin (nose), removed. Following with Derm-s/p removal of several precancerous skin lesions over the years
Fibromyalgia
Celiac disease
Nonsmoker
Chronic constipation
Osteopenia
Osteoporosis
Malignant neoplasm of the skin
Degenerative joint disease
Raynaud syndrome
Depression
Agoraphobia with panic attacks
Colon resection for possible volvulus
Hyperlipidemia
Celiac disease
Ovarian cyst
Appendectomy/bone marrow biopsy/cataract surgery/cervical cone/thumb joint surgery/exploratory lap for SBO/cervical spine surgery/endarterectomy
Chest x-ray 12/30/2023: Reviewed, showed no acute abnormalities
Echocardiogram 05/06/2022: Reviewed showed normal biventricular function. Stage I diastolic dysfunction. No significant valvular disease.
Plan
Postoperative day 2
Overnight developed rapid atrial fibrillation. New onset. Asymptomatic.
Anticoagulation restarted which she takes for DVT.
Cardiology has been consulted
Continue outpatient Cardizem
-
Continue to increase activity as tolerated.
Not requiring supplemental oxygen
Incentive spirometry encouraged
Neuro and vascular checks per protocol-currently neurologically intact.
Vascular surgery following-maintain ICU level of care for now.
Hemoglobin has been stable
No evidence for hematoma on bilateral groin
Continue outpatient antihypertensive medication.
Normotensive.
DVT prophylaxis-Anticoagulation restarted
Physical therapy/Occupational Therapy as tolerated
-
Okay to transfer to telemetry from my perspective.
No additional recommendation from the critical care perspective
Sign off
Subjective Dataa
Subjective Data
Date of Service:
Date of Service: January 07, 2024
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
Subjective:
Patient offers no new complaints
Her pain is controlled
Denies chest pain, shortness of breath or lightheadedness
Tolerating diet
Review of Systems
General: Fever (n)
Cardiopulmonary: Dyspnea (n) and Cough
GI: Abdominal Pain (n), Nausea (n) and Vomiting (n)
Neuro: Headache (n)
Objective Data
Data Reviewed
Vital Signs / I&O / Oxygen:
Vital Signs
Temp Pulse Resp BP Pulse Ox
99.1 F 99 21 100/66 97
01/07/24 07:31 01/07/24 11:02 01/07/24 11:02 01/07/24 11:02 01/06/24 21:09
Intake and Output
01/06/24 01/07/24 01/08/24
06:59 06:59 06:59
Intake Total 1959 / 2139 1110 / 1110
Output Total 2610 / 2935 675 / 675
Balance -650 / -795 435 / 435
SaO2 97
Nasal Cannula flow liters per 2
minute
Physical Exam
General: Respiratory Distress (n) and Comfortable
HEENT: Normocephalic
Cardiovascular: S1-S2 and Irregular Rhythm
Respiratory: Clear and Non-Labored Respirations
GI: Soft and Non Distended
Neurology: Awake, Alert and AO x 3
Skin: Warm, Other (Peripheral pulses present) and Other (Bilateral groin incisions without hematoma)
Labs/Micro/Reports
Lab Data
01/07/24 03:50
01/07/24 03:50
[2024-01-07] MEDS: CORDARONE 518 MG IV (11:12)
--- NOTE | 2024-01-07 11:15 | PTCARENOTE ---
Amiodarone bolus and gtt initiated per protocol after pt seen by from cardiology. Pt made aware of plan of care and that she will tentatively d/c to home tmr.
--- NOTE | 2024-01-07 12:00 | PTCARENOTE ---
No major changes in physical assessment. Pt converted to NSR... aware. Pt to remain on amiodarone gtt for now. ECG in am. Pt resting comfortably w/o issue. Call harper within reach.
[2024-01-07] MEDS: TYLENOL 650 MG PO ×2 (14:14→23:38)
--- NOTE | 2024-01-07 15:07 | CM ---
CM following re: discharge planning.
Reviewed pt's chart, met with pt. Pt is POD #2 right femoral endarterectomy. Per Rounds meeting, continue supportive care
PT and OT evaluations noted - no skilled PT/OT needs indicated.
D/C plan: D/C plan; return back to her independent apartment at [facility] with family support. to transport at discharge.
CM will follow with discharge plan updates as hospitalization progresses
--- NOTE | 2024-01-07 15:37 | W.PN.UPDATE ---
Update Note
Progress Note Update
Patient converted to sinus rhythm. Cardiology following the patient
Hemodynamically stable.
Asymptomatic.
Will transfer to telemetry.
Critical care team will sign off.
--- NOTE | 2024-01-07 15:45 | PTCARENOTE ---
Orders rec'd to transfer to tele when bed available.
--- NOTE | 2024-01-07 15:47 | W.PN.UPDATE ---
Update Note
Progress Note Update
In response to CDI
Clinical Indicators:
The diagnosis of atelectasis was included in the signed CXR on 01/05/24
Pt admitted for right femoral artery endarterectomy and patch angioplasty
01/05/24 CXR: 'Top normal in size. No evidence of congestive heart failure. Subtle linear stranding at the left lung base, consistent with atelectasis...'
01/05 Vascular Surg. PN: 'Continue to encourage incentive spirometry'
Please indicate in your progress notes if you are in agreement that the above diagnosis is valid for this patient:
Other cannot verify diagnosis of atelectasis solely on radiographic imaging alone, patient does not have any physial exam findings to support diagnosis
--- NOTE | 2024-01-07 16:15 | PTCARENOTE ---
New JAYA dressing applied by Radha WHIPPLE.
--- NOTE | 2024-01-07 16:32 | W.PN.UPDATE ---
Update Note
Progress Note Update
JYAA dressing changed by the provider and replaced with new JAYA, tolerated. Suture/staple line well approximated, no drainage, no edema. CDI.
--- NOTE | 2024-01-07 16:50 | PTCARENOTE ---
Report called to Marcia VASQUEZ on . Pt to transfer to Room 2126. Belongings to go w/ patient.
[2024-01-07] MEDS: OSCAL CAL 500 1000 MG PO (17:04)
[2024-01-07] MEDS: LIPITOR 10 MG PO (20:35)
[2024-01-07] MEDS: FLORASTOR 250 MG PO (20:35)
[2024-01-07] MEDS: VITAMIN B-12 1000 MCG PO (20:35)
[2024-01-07] MEDS: VITAMIN C 500 MG PO (20:43)
[2024-01-07] MEDS: XANAX 1.5 MG PO (23:30)
[2024-01-08] VITALS (8 sets, daily range): BP systolic 109–166; BP diastolic 55–87; PULSE 74; BMI 29.2
[2024-01-08 07:28] LABS: Hematocrit 29.4 % (37.0-47.0); Hemoglobin 10.5 g/dL (12.0-16.0); Mean Corp Hgb Conc. 35.7 g/dL (33.0-37.0); Mean Corpuscular Hgb 33.8 pg (27.0-31.0); Mean Corpuscular Volume 94.5 fL (81.0-99.0); Mean Platelet Volume 10.4 fL (7.4-10.4); Platelet Count 173 10^3/uL (130-400); Red Blood Cell Count 3.11 10^6/uL (4.20-5.40); Red Cell Dist. Width 13.2 % (11.5-14.5); White Blood Cell Count 7.8 10^3/uL (4.8-10.8)
[2024-01-08 07:55] LABS: Blood Urea Nitrogen 13 mg/dl (7-17); Calcium 8.5 mg/dl (8.4-10.2); Carbon Dioxide 24 mmol/L (22-30); Chloride 96 mmol/L (98-107); Estimated Creatinine Clearance 70 ml/min; Glucose 104 mg/dl (70-99); Potassium 2.9 mmol/L (3.5-5.1); Sodium 124 mmol/L (135-145); eGFR > 60.00
[2024-01-08] MEDS: FOLVITE 2 MG PO (08:17)
[2024-01-08] MEDS: LEXAPRO 20 MG PO (08:18)
[2024-01-08] MEDS: SENOKOT 17.2 MG PO (08:18)
[2024-01-08] MEDS: ELIQUIS 5 MG PO ×2 (08:24→20:32)
[2024-01-08] MEDS: ASPIR LOW (ENTERIC COATED) 81 MG PO (08:24)
[2024-01-08] MEDS: CARDIZEM CD 120 MG PO (08:24)
--- NOTE | 2024-01-08 08:24 | W.PN.VS ---
Addendum entered and electronically signed by Brendan Andres III, MD 01/08/24 11:10:
Patient was seen and examined with LYNDON Albert. I agree with the history, physical exam, assessment and plan.
Renal consult for electrolyte abnormalities identified this AM
Brendan Andres III, MD
[facility] Vascular Surgery
[phone] (fefw)
Original Note:
Today's Communication / Plan
-
Patient seen and examined at bedside with Dr. Brendan Andres III, below plan reviewed with attending.
Assessment/Plan
-
Assessment: 83-year-old female POD #3 right femoral endarterectomy with intravascular lithotripsy to right superficial femoral artery occlusion, drug-coated balloon angioplasty to right superficial femoral artery, antegrade diagnostic arteriogram of
the right lower extremity
Plan:
Ambulation
Continue Eliquis
Appreciate cardiology recommendation for medical management of paroxysmal a-fib
Continue to encourage incentive spirometry
Given recent endovascular intervention with drug-coated balloon angioplasty would continue antiplatelet of aspirin 81 mg p.o. daily
Possible discharge today pending clearance from cardiology
Subjective Data
-
Date of Service: January 08, 2024
Patient seen and examined at bedside, continues to report well managed post operative pain. Reports eagerness for discharge to home. Denies nausea, vomiting, fever, and chills.
Objective Data
-
Vital Signs
Temp Pulse Resp BP Pulse Ox
97.9 F 82 18 138/87 98
01/08/24 07:05 01/08/24 07:05 01/08/24 07:05 01/08/24 07:05 01/08/24 07:05
Intake and Output
01/07/24 01/08/24 01/09/24
06:59 06:59 06:59
Intake Total 1110 / 1110 1200 / 1200
Output Total 675 / 675
Balance 435 / 435 1200 / 1200
Intake:
Oral fluids 1030 / 1030 1200 / 1200
IV fluids (Total) 80 / 80
Nss 1,000 ml @ 80 mls/hr IV . 80 / 80
[id number] [facility] Rx#:[id number]
Output:
Urine, Andres 525 / 525
Urine, Voided 150 / 150
Other:
Number of approximated MODERATE 2
amounts of urine
Number of approximated LARGE 1 1
amounts of urine
Lab Results
01/08/24 06:49
01/08/24 06:49
Calcium 8.5 mg/dl (8.4-10.2) 01/08/24 06:49
Magnesium 2.2 mg/dl (1.6-2.3) 01/05/24 15:36
Physical Exam
-
AAOx3, no apparent distress
No tachycardia, HR in the 70s, tele demonstrates SR
No dyspnea on room air
ABD soft, nontender, nondistended
Right groin deidra dressing CDI, no evidence of hematoma, all surrounding compartments soft
Right foot warm, DP pulse +1 palpable confirmed with Doppler, PT by Doppler
[2024-01-08] MEDS: COLACE 100 MG PO ×2 (08:25→20:32)
--- NOTE | 2024-01-08 08:49 | W.PN.CD ---
Today's Communication / Plan
-
plan for 2 week post op course of amiodarone 200mg bid
to discuss abnormal lytes with primary team: likely start with repeating
Impression / Plan
-
83 yo female with PMH of paroxysmal A fib on eliquis, PAD, HTN, hyperlipidemia is admitted POD #1 s/p right femoral endarterectomy with intravascular lithotripsy to right superficial femoral artery occlusion, drug-coated balloon angioplasty to right
superficial femoral artery, antegrade diagnostic arteriogram of the right lower extremity.
We are consulted with A fib with RVR, noted on tele post op
# A fib with RVR
-h/o paroxysmal A fib
-eliquis 5mg bid has been resumed
-back in sinus with PAC's on IV amiodarone
-plan for 2 week post op course of amiodarone 200mg bid
# PAD
-post op care per vascular surgery
-cont ASA, statin
# HTN
-BP stable: continue diltiazem
Physical Exam
Vital Signs/Labs
Vital Signs
Temp Pulse Resp BP Pulse Ox
97.9 F 82 18 138/87 98
01/08/24 07:05 01/08/24 08:24 01/08/24 07:05 01/08/24 08:24 01/08/24 07:05
01/07/24 01/08/24 01/09/24
06:59 06:59 06:59
Actual Weight 78.018 kg 78.471 kg
01/08/24 06:49
01/08/24 06:49
PT 13.9 Sec (11.4-14.6) 01/06/24 03:41
INR 1.09 01/06/24 03:41
APTT 32.8 Sec (23.4-35.0) 01/06/24 03:41
Magnesium 2.2 mg/dl (1.6-2.3) 01/05/24 15:36
Physical Exam
Constitutional: No acute distress and Comfortable
EENT: Moist mucous membranes
Cardiovascular: Rhythm & rate is regular, Pedal edema is absent, JVD pressure is normal and Systolic murmur absent
Respiratory: Respiratory effort normal and Lungs clear to auscul.
GI: Soft and Distention absent
Neuro/Psych: AO x 3
Data Reviewed
-
Date of Service: January 08, 2024
EKG: Other (Tele: NSR, brief A fib)
Labs: Labs Reviewed by me
[2024-01-08] MEDS: PACERONE 200 MG PO ×2 (09:30→20:32)
[2024-01-08 10:03] LABS: Blood Urea Nitrogen 12 mg/dl (7-17); Calcium 8.7 mg/dl (8.4-10.2); Carbon Dioxide 25 mmol/L (22-30); Chloride 94 mmol/L (98-107); Estimated Creatinine Clearance 70 ml/min; Glucose 99 mg/dl (70-99); Potassium 2.9 mmol/L (3.5-5.1); Sodium 124 mmol/L (135-145); eGFR > 60.00
--- NOTE | 2024-01-08 10:58 | VATNOTE ---
Upon routine rounds it was noted that the client has a prior amiodarone infiltrate in left forearm( IV amiodarone discontinued). Area of involvement [id number] in left forearm cephalic vein. Area slightly reddened and edematous. Tender to touch. Arm
elevated on pillow and ice pack in place. Client states it feels 'better' with cold pack in place.
[2024-01-08] MEDS: KCL 40 MEQ PO (11:00)
[2024-01-08] MEDS: KCL 260 MEQ IV (11:24)
[2024-01-08] MEDS: TYLENOL 650 MG PO ×2 (11:24→23:58)
--- NOTE | 2024-01-08 13:30 | CM ---
Renal consult for electrolyte abnormalities. Discharge Plan of Care: Home with no needs and and 2 daughters support.
[2024-01-08] MEDS: NSS 1000 IV ×2 (13:57→23:54)
[2024-01-08 15:35] LABS: Potassium 4.3 mmol/L (3.5-5.1)
--- NOTE | 2024-01-08 16:09 | W.CON.NEPH ---
Consultation
-
Date/Time Consultation Requested: 01/08/2024 10:16AM
Date/Time Consultation Performed: 01/08/2024 4:10PM
Requesting Provider: Radha Gray
Performing Provider: Roya Gonzales
Reason for Consultation: hyponatremia
Medical History
-
Chief Complaint: hyponatremia
History of Present Illness:
Ms. Pruitt is an 83 YOF with PMH of Afib (on eliquis), PAD, HTN, DLD who is admitted after R femoral endarterectomy with intravascular lithotripsy to right superficial femoral artery occlusion, drug-coated balloon angioplasty to right superficial
femoral artery, antegrade diagnostic arteriogram of the right lower extremity. We are consulted for hyponatremia.
Reviewing her labs, it appears she has had hyponatremia since 2009 with sodiums typically ranging in the low 130s. Her Na drifted down from 135 on 01/05 --> 130 --> 124 on 01/07. She states that she is having neck pain and back pain. She is not eating
or drinking well.
Past Medical History
Past Medical History: Arrhythmias (pAfib), CAD, Hypercholesterolemia and Other (PAD)
Past Surgical History: Appendectomy and Other (fem endarterectomy)
Social History
Tobacco: Non-Smoker
Alcohol: Occasional
Drug: None
Family History
no CKD
Family History: Not Pertinent
Allergies / Home Medications
Allergy/AdvReac Type Severity Reaction Status Date / Time
adhesive tape Allergy Rash Verified 01/05/24 08:58
gluten Allergy Constipation/ Verified 01/05/24 08:58
Abdominal
pain/
Headache
NSAIDS (Non-Steroidal AdvReac Oral ulcers Verified 01/05/24 16:39
Anti-Inflamma
oxycodone AdvReac Severe Verified 01/05/24 16:39
constipation
Sulfa (Sulfonamide AdvReac Diarrhea/Abdominal Verified 01/05/24 16:39
Antibiotics) pain
�Medication �Instructions �Recorded �Confirmed �Type
alprazolam 1 mg tablet 1.5 mg PO HS Mental Health/Anxiety 07/15/09 01/05/24 History
atorvastatin 10 mg tablet 10 mg PO HS High cholesterol 06/10/21 01/05/24 History
ascorbic acid (vitamin C) 500 mg 500 mg PO HS Supplement 06/18/21 01/05/24 History
tablet (Vitamin C)
calcium carbonate 1,200 mg PO QPM Supplement 06/18/21 01/05/24 History
omega-3 650 mg-dha 400 mg-epa 200 1 ea PO BID Supplement 06/18/21 01/05/24 History
mg-fish oil-vit D3 300 unit
capsule (Acushnet-3 Plus Vitamin D3)
escitalopram oxalate 10 mg tablet 20 mg PO DAILY Depression 07/01/21 01/05/24 History
Prevagen 1 tab PO DAILY Supplement 12/25/23 01/05/24 History
Saccharomyces boulardii 250 mg 250 mg PO HS Supplement 12/25/23 01/05/24 History
capsule (Florastor)
acetaminophen 650 mg 1,300 mg PO Q12H Pain 12/25/23 01/05/24 History
tablet,extended release
apixaban 2.5 mg tablet (Eliquis) 5 mg PO BID Blood clot 12/25/23 01/05/24 History
prevention/tx
diltiazem HCl 120 mg capsule,24 120 mg PO DAILY Heart 12/25/23 01/05/24 History
hr,extended release Disease/Condition
docusate sodium 100 mg capsule 100 mg PO DAILY STOOL SOFTENER 12/25/23 01/05/24 History
fexofenadine-pseudoephedrine ER 1 tab PO DAILY PRN allergies 12/25/23 12/25/23 History
180 mg-240 mg tablet,ext.release
24 hr (Kiya-D 24 Hour)
mecobalamin (vitamin B12) 1,000 1,000 mcg PO HS Supplement 12/25/23 01/05/24 History
mcg chewable tablet (B12 Active)
sennosides 8.6 mg tablet (senna) 17.2 mg PO DAILY PRN constipation 12/25/23 01/05/24 History
folic acid 1 mg tablet 2 mg PO DAILY Supplement 01/05/24 01/05/24 History
Review of Systems
-
History Source: Patient
All other systems: Negative unless noted
Musculoskeletal: Muscle Pain and Muscle Stiffness
Physical Exam
Vital Signs
Vital Signs
Temp Pulse Resp BP Pulse Ox
98.3 F 72 18 156/70 98
01/08/24 11:05 01/08/24 11:05 01/08/24 11:05 01/08/24 11:05 01/08/24 11:05
Lab Results
WBC 7.8 10^3/uL (4.8-10.8) 01/08/24 06:49
RBC 3.11 10^6/uL (4.20-5.40) L 01/08/24 06:49
Hgb 10.5 g/dL (12.0-16.0) L 01/08/24 06:49
Hct 29.4 % (37.0-47.0) L 01/08/24 06:49
Plt Count 173 10^3/uL (130-400) 01/08/24 06:49
Sodium Cancelled 01/08/24 20:00
Potassium Cancelled 01/08/24 20:00
Chloride Cancelled 01/08/24 20:00
Carbon Dioxide Cancelled 01/08/24 20:00
BUN Cancelled 01/08/24 20:00
Creatinine Cancelled 01/08/24 20:00
eGFR Cancelled 01/08/24 20:00
Glucose Cancelled 01/08/24 20:00
Calcium Cancelled 01/08/24 20:00
Physical Exam
General: AOx3, No Distress and Nontoxic
HEENT: PERRL, EOMI, Anicteric, Conjunctivae Clear, Ear/Nose Intact, Hearing Normal, Oropharynx Clear/Moist, Dentition Intact, Facial Symmetry, Neck Supple, Trachea Midline and No JVD
Respiratory: Clear, Normal Excursion and Nonlabored Respirations
Cardiac: S1/S2 and No Edema
Breast: Deferred by me
Abdomen: Soft, Nontender, Nondistended, Normal Bowel Sounds and No Hepatosplenomegaly
Rectal: Deferred by Provider
Genito-urinary: No Costovertebral Tender
Musculoskeletal: No Clubbing, No Cyanosis and No Edema
Skin: No Rash, Warm, Dry, No Cyanosis, Normal Turgor and No Bruising
Neuro: Nonfocal/Grossly Intact
Hematologic/Lymphatic: No Cervical Lymphadenopathy
Psych: Mood/afflect pleasant, Insight/judgement good and Appropriate
Data Reviewed
-
Radiology: Image Personally Visualized and interpreted (CXR reviewed, c/f pulm congestion from 01/04)
Labs: Labs Reviewed by me, Discussed with Physician, Discussed with Nurse and Discussed with Patient
Old Records: Reviewed
Assessment/Plan
-
Assessment:
Hyponatremia
Afib with RVR
PAD
HTN
Plan:
- baseline sodium around 130s, now down to 124
- urine studies consistent with hypovolemic hyponatremia
- initiated on fluids at 100cc/hr
- if this does not work, might need to consider gentle diuresis with lasix
- continue to trend Na q6h
- encouraged PO intake
--- NOTE | 2024-01-08 16:25 | W.[place]-PDMP ---
[place]-PD[place]
-
Checked the [place]- Prescription Drug Monitoring Program website, no red flags identified; safe to proceed with prescription.
[2024-01-08 17:06] LABS: Blood Urea Nitrogen 11 mg/dl (7-17); Calcium 8.7 mg/dl (8.4-10.2); Carbon Dioxide 21 mmol/L (22-30); Chloride 98 mmol/L (98-107); Estimated Creatinine Clearance 70 ml/min; Glucose 101 mg/dl (70-99); Potassium 3.6 mmol/L (3.5-5.1); Sodium 125 mmol/L (135-145); eGFR > 60.00
[2024-01-08 17:07] LABS: ALT (SGPT) 16 U/L (0-35); AST (SGOT) 22 U/L (14-36); Albumin 3.2 g/dl (3.5-5.0); Alkaline Phosphatase 71 U/L (38-126); Blood Urea Nitrogen 11 mg/dl (7-17); Calcium 8.9 mg/dl (8.4-10.2); Carbon Dioxide 24 mmol/L (22-30); Chloride 97 mmol/L (98-107); Estimated Creatinine Clearance 70 ml/min; Glucose 100 mg/dl (70-99); Potassium 3.9 mmol/L (3.5-5.1); Sodium 125 mmol/L (135-145); Total Bilirubin 0.7 mg/dl (0.2-1.3); Total Protein 5.5 g/dl (6.3-8.2); eGFR > 60.00
[2024-01-08 17:22] LABS: Osmolality Urine 101 mOsm/kg (300-900)
[2024-01-08 17:34] LABS: Urine Sodium 8 mmol/L (30-90)
[2024-01-08] MEDS: OSCAL CAL 500 1000 MG PO (17:55)
[2024-01-08] MEDS: XANAX 1.5 MG PO (21:41)
[2024-01-08] MEDS: FLORASTOR 250 MG PO (21:41)
[2024-01-08] MEDS: VITAMIN C 500 MG PO (21:42)
[2024-01-08] MEDS: LIPITOR 10 MG PO (21:42)
[2024-01-08] MEDS: VITAMIN B-12 1000 MCG PO (21:42)
[2024-01-09] VITALS (8 sets, daily range): BP systolic 105–149; BP diastolic 51–70; O2SAT 97; BMI 29.7
[2024-01-09] MEDS: APRESOLINE 10 MG IV (01:28)
[2024-01-09] MEDS: CARDIZEM 5 MG IV (02:31)
--- NOTE | 2024-01-09 03:31 | PTCARENOTE ---
Pt c/o generalized pain and headache at around midnight, Prn tylenol given with + effect. @ 0130 after transfered back from bathroom prn hydralazine was given for manual bp 156/74, 80. Shortly after pt's heart rhythm changed from SR to Afib on the
monitor, and HR 130-145, sustaining at the 130's.BP 135/65, afebrile. Pt offered no c/o chest pain, SOB or dizziness. call or contact centre manager WASHER BLANKET made aware and x 1 order of 5mg cardizem given. EKG performed- pt now on Afib w/ rvr and HR fluctuating from 90- 130's
unsustainable.
--- NOTE | 2024-01-09 03:44 | W.PN.UPDATE ---
Update Note
Progress Note Update
@ 0220 RN notified PAID SEARCH SPECIALIST HR irregular sustaining 130's, highest HR 150. BP 135/65 after Hydralazine 10mg at 0130, patient asymptomatic. 5mg IV Cardizem given, EKG shows Afib with RVR 118, QTC 527, will hold off Amiodarone PO today, will consult with
Technician Inventory Specialist in AM. HR still high but not sustaining.
Advised RN to give AM Cardizem PO dose.
[2024-01-09] MEDS: ROXICODONE 5 MG PO (05:22)
--- NOTE | 2024-01-09 07:24 | W.PN.VS ---
Today's Communication / Plan
-
Seen and assessed at bedside by Dr. Becerra
Assessment/Plan
-
Assessment: 83-year-old female POD #4 right femoral endarterectomy with intravascular lithotripsy to right superficial femoral artery occlusion, drug-coated balloon angioplasty to right superficial femoral artery, antegrade diagnostic arteriogram of
the right lower extremity
Plan:
A.m. labs pending
Continue Eliquis
Appreciate cardiology recommendation for medical management of paroxysmal a-fib, amiodarone on hold for prolonged QT
Appreciate nephrology recommendations for hyponatremia
Given recent endovascular intervention with drug-coated balloon angioplasty would continue antiplatelet of aspirin 81 mg p.o. daily
Ready for discharge from vascular standpoint, pending clearance from cardiology and nephrology
Subjective Data
-
Date of Service: January 09, 2024
Patient seen at bedside this a.m. resting comfortably, in sinus rhythm. Overnight patient was noted to be in A-fib with RVR around 2 AM, asymptomatic.
Objective Data
-
Vital Signs
Temp Pulse Resp BP Pulse Ox
98.0 F 130 20 135/65 99
01/09/24 03:31 01/09/24 03:31 01/09/24 03:31 01/09/24 03:31 01/09/24 03:31
Intake and Output
01/08/24 01/09/24 01/10/24
06:59 06:59 06:59
Intake Total 1200 / 1200 1800 / 1800
Output Total 700 / 700
Balance 1200 / 1200 1100 / 1100
Intake:
Oral fluids 1200 / 1200 600 / 600
IV fluids (Total) 1200 / 1200
Output:
Urine, Voided 700 / 700
Other:
Number of approximated MODERATE 2 1
amounts of urine
Number of approximated LARGE 1
amounts of urine
How many times incontinent 1
SMALL amount urine
Number of unmeasured liquid
stools
Rectum 1
Lab Results
01/09/24 18:00
Calcium Cancelled 01/08/24 20:00
Magnesium 2.2 mg/dl (1.6-2.3) 01/05/24 15:36
Total Bilirubin 0.7 mg/dl (0.2-1.3) 01/08/24 16:38
AST 22 U/L (14-36) 01/08/24 16:38
ALT 16 U/L (0-35) 01/08/24 16:38
Alkaline Phosphatase 71 U/L (38-126) 01/08/24 16:38
Total Protein 5.5 g/dl (6.3-8.2) L 01/08/24 16:38
Albumin 3.2 g/dl (3.5-5.0) L 01/08/24 16:38
Physical Exam
-
AAOx3, no apparent distress
No tachycardia, HR in the 80s, tele demonstrates SR
No dyspnea on room air
ABD soft, nontender, nondistended
Right groin deidra dressing CDI, no evidence of hematoma, all surrounding compartments soft
Right foot warm, DP pulse +1 palpable
[2024-01-09 07:59] LABS: Hematocrit 28.4 % (37.0-47.0); Hemoglobin 10.1 g/dL (12.0-16.0); Mean Corp Hgb Conc. 35.6 g/dL (33.0-37.0); Mean Corpuscular Hgb 33.3 pg (27.0-31.0); Mean Corpuscular Volume 93.7 fL (81.0-99.0); Mean Platelet Volume 10.2 fL (7.4-10.4); Platelet Count 191 10^3/uL (130-400); Red Blood Cell Count 3.03 10^6/uL (4.20-5.40); Red Cell Dist. Width 13.2 % (11.5-14.5); White Blood Cell Count 8.5 10^3/uL (4.8-10.8)
[2024-01-09 08:15] LABS: Blood Urea Nitrogen 8 mg/dl (7-17); Calcium 8.6 mg/dl (8.4-10.2); Carbon Dioxide 21 mmol/L (22-30); Chloride 102 mmol/L (98-107); Estimated Creatinine Clearance 71 ml/min; Glucose 101 mg/dl (70-99); Potassium 3.3 mmol/L (3.5-5.1); Sodium 129 mmol/L (135-145); eGFR > 60.00
[2024-01-09] MEDS: ELIQUIS 5 MG PO ×2 (09:02→20:00)
[2024-01-09] MEDS: ASPIR LOW (ENTERIC COATED) 81 MG PO (09:02)
[2024-01-09] MEDS: LEXAPRO 20 MG PO (09:02)
[2024-01-09] MEDS: FOLVITE 2 MG PO (09:02)
[2024-01-09] MEDS: SENOKOT 17.2 MG PO (09:02)
[2024-01-09] MEDS: CARDIZEM CD 120 MG PO (09:02)
[2024-01-09] MEDS: COLACE 100 MG PO ×2 (09:03→19:59)
--- NOTE | 2024-01-09 09:34 | W.PN.CD ---
Today's Communication / Plan
-
resume IV amiodarone
Impression / Plan
-
83 yo female with PMH of paroxysmal A fib on eliquis, PAD, HTN, hyperlipidemia is admitted POD #1 s/p right femoral endarterectomy with intravascular lithotripsy to right superficial femoral artery occlusion, drug-coated balloon angioplasty to right
superficial femoral artery, antegrade diagnostic arteriogram of the right lower extremity.
We are consulted with A fib with RVR, noted on tele post op
# A fib with RVR
-h/o paroxysmal A fib
-eliquis 5mg bid has been resumed
-more A fib overnight: will reload with IV amiodarone for another 24 hrs and continue PO amiodarone
-QTc re-measured and under 500
-monitor tele
# PAD
-post op care per vascular surgery
-cont ASA, statin
# HTN
-BP stable: continue diltiazem
Physical Exam
Vital Signs/Labs
Vital Signs
Temp Pulse Resp BP Pulse Ox
97.9 F 98 12 105/57 95
01/09/24 07:05 01/09/24 07:05 01/09/24 07:05 01/09/24 07:05 01/09/24 07:05
01/08/24 01/09/24 01/10/24
06:59 06:59 06:59
Actual Weight 78.471 kg 79.56 kg
01/09/24 07:15
01/09/24 18:00
PT 13.9 Sec (11.4-14.6) 01/06/24 03:41
INR 1.09 01/06/24 03:41
APTT 32.8 Sec (23.4-35.0) 01/06/24 03:41
Magnesium 2.2 mg/dl (1.6-2.3) 01/05/24 15:36
Physical Exam
Constitutional: No acute distress and Comfortable
EENT: Moist mucous membranes
Cardiovascular: Pedal edema is absent, JVD pressure is normal, Systolic murmur absent and Rhythm/rate is irregular
Respiratory: Respiratory effort normal and Lungs clear to auscul.
GI: Soft, Distention absent and Flat
Neuro/Psych: AO x 3
Data Reviewed
-
Date of Service: January 09, 2024
EKG: Other (Tele: SR, PAC's, paroxysmal A fib)
Labs: Labs Reviewed by me
[2024-01-09] MEDS: NSS 1000 IV ×2 (10:10→20:06)
--- NOTE | 2024-01-09 10:45 | VATNOTE ---
Left arm previous amiodarone infiltrate remains inflamed and swollen [id number], ice applied. Will continue to monitor.
[2024-01-09] MEDS: CORDARONE 518 MG IV (10:54)
--- NOTE | 2024-01-09 12:41 | W.PN.NEPH.PH ---
Today's Communication / Plan
-
- continue NS
Assessment/Plan
-
Assessment:
Hyponatremia
Afib with RVR
PAD
HTN
Plan:
- baseline sodium around 130s, now down to 124, back up to 129 after fluids
- urine studies consistent with hypovolemic hyponatremia
- initiated on fluids at 100cc/hr, can continue today
- please replete K
- continue to trend Na q12
- encouraged PO intake
-
-
Date of Service: January 09, 2024
CC / HPI / ROS
-
Chief Complaint:
hyponatremia
History of Present Illness:
Na 124 --> 129 with normal saline
Review of Systems:
feeling better today
anxious to go home
Labs
-
Labs:
WBC 8.5 10^3/uL (4.8-10.8) 01/09/24 07:15
RBC 3.03 10^6/uL (4.20-5.40) L 01/09/24 07:15
Hgb 10.1 g/dL (12.0-16.0) L 01/09/24 07:15
Hct 28.4 % (37.0-47.0) L 01/09/24 07:15
Plt Count 191 10^3/uL (130-400) 01/09/24 07:15
Sodium Cancelled 01/09/24 18:00
Potassium 3.3 mmol/L (3.5-5.1) L 01/09/24 07:15
Chloride 102 mmol/L (98-107) 01/09/24 07:15
Carbon Dioxide 21 mmol/L (22-30) L 01/09/24 07:15
BUN 8 mg/dl (7-17) 01/09/24 07:15
Creatinine 0.5 mg/dL (0.6-1.0) L 01/09/24 07:15
eGFR > 60.00 01/09/24 07:15
Glucose 101 mg/dl (70-99) H 01/09/24 07:15
Calcium 8.6 mg/dl (8.4-10.2) 01/09/24 07:15
Albumin 3.2 g/dl (3.5-5.0) L 01/08/24 16:38
Physical Exam
-
Vital Signs:
Vital Signs
Temp Pulse Resp BP Pulse Ox
98.1 F 77 16 109/51 97
01/09/24 11:25 01/09/24 11:25 01/09/24 11:25 01/09/24 11:25 01/09/24 11:25
Cardiovascular:: Regular rate and rhythm
Respiratory:: Bilateral: CTA
Lung Excursion:: Normal
Abdomen:: Nontender and Soft
Bowel Sounds:: Normal
Extremity Edema:: None: Bilateral:
Andres Catheter: No
[2024-01-09] MEDS: OSCAL CAL 500 1000 MG PO (17:13)
[2024-01-09] MEDS: KCL 40 MEQ PO (17:41)
[2024-01-09] MEDS: PACERONE 200 MG PO (20:03)
[2024-01-09] MEDS: TYLENOL 650 MG PO (22:13)
[2024-01-09] MEDS: FLORASTOR 250 MG PO (22:14)
[2024-01-09] MEDS: VITAMIN C 500 MG PO (22:14)
[2024-01-09] MEDS: LIPITOR 10 MG PO (22:14)
[2024-01-09] MEDS: VITAMIN B-12 1000 MCG PO (22:15)
[2024-01-09] MEDS: XANAX 1.5 MG PO (23:28)
[2024-01-10 03:00] VITALS: BP 141/68
[2024-01-10 06:00] VITALS: BMI 29.9
[2024-01-10] MEDS: NSS 1000 IV (06:10)
[2024-01-10 07:05] VITALS: BP 155/71
[2024-01-10] MEDS: FOLVITE 2 MG PO (07:58)
[2024-01-10] MEDS: ELIQUIS 5 MG PO (07:59)
[2024-01-10] MEDS: CARDIZEM CD 120 MG PO (07:59)
[2024-01-10] MEDS: TYLENOL 650 MG PO (07:59)
[2024-01-10] MEDS: PACERONE 200 MG PO (07:59)
[2024-01-10] MEDS: LEXAPRO 20 MG PO (07:59)
[2024-01-10] MEDS: ASPIR LOW (ENTERIC COATED) 81 MG PO (07:59)
--- NOTE | 2024-01-10 07:59 | W.PN.VS ---
Today's Communication / Plan
-
Plan:
A.m. labs pending
Continue Eliquis, ASA 81mg daily
Appreciate cardiology recommendation for transition to oral meds.
Appreciate nephrology recommendations for hyponatremia
Ready for discharge from vascular standpoint, pending AM labs and clearance from nephrology
Assessment/Plan
-
Assessment: 83-year-old female POD #5 right femoral endarterectomy with intravascular lithotripsy to right superficial femoral artery occlusion, drug-coated balloon angioplasty to right superficial femoral artery, antegrade diagnostic arteriogram of
the right lower extremity
Plan:
A.m. labs pending
Continue Eliquis, ASA 81mg daily
Appreciate cardiology recommendation for transition to oral meds.
Appreciate nephrology recommendations for hyponatremia
Ready for discharge from vascular standpoint, pending AM labs and clearance from nephrology
Subjective Data
-
Date of Service: January 10, 2024
Feeling well
No chest pain, SOB
No dizziness
No leg pain, numbness or weakness
Back in Sinus on amio gtt
-- Dr. Simmons has cleared for PO meds and home
Awaiting blood draw this AM for Na and K
Objective Data
-
Vital Signs
Temp Pulse Resp BP Pulse Ox
98.4 F 77 18 141/68 94
01/10/24 03:00 01/10/24 03:00 01/10/24 03:00 01/10/24 03:00 01/10/24 03:00
Intake and Output
01/09/24 01/10/24 01/11/24
06:59 06:59 06:59
Intake Total 1800 / 1800 2260.4 / 2260.4
Output Total 700 / 700
Balance 1100 / 1100 2260.4 / 2260.4
Intake:
Oral fluids 600 / 600 660 / 660
IV fluids (Total) 1200 / 1200 1400 / 1400
IV piggybacks 200.4 / 200.4
Output:
Urine, Voided 700 / 700
Other:
Number of approximated MODERATE 1 1
amounts of urine
How many times incontinent 1
SMALL amount urine
Number of unmeasured liquid
stools
Rectum 1 1
Lab Results
01/09/24 07:15
01/09/24 18:00
Calcium 8.6 mg/dl (8.4-10.2) 01/09/24 07:15
Magnesium 2.2 mg/dl (1.6-2.3) 01/05/24 15:36
Total Bilirubin 0.7 mg/dl (0.2-1.3) 01/08/24 16:38
AST 22 U/L (14-36) 01/08/24 16:38
ALT 16 U/L (0-35) 01/08/24 16:38
Alkaline Phosphatase 71 U/L (38-126) 01/08/24 16:38
Total Protein 5.5 g/dl (6.3-8.2) L 01/08/24 16:38
Albumin 3.2 g/dl (3.5-5.0) L 01/08/24 16:38
Physical Exam
-
2+ R DP
foot motor/sensory intact
R groin with JAYA - no hematoma
[2024-01-10] MEDS: COLACE PO (08:01)
[2024-01-10] MEDS: SENOKOT PO (08:01)
[2024-01-10 08:39] LABS: Potassium 3.7 mmol/L (3.5-5.1); Sodium 130 mmol/L (135-145)
--- NOTE | 2024-01-10 08:40 | W.PN.CD ---
Today's Communication / Plan
-
outpatient amiodarone 200mg bid for 2 week post op course
we will call patient to arrange for follow up
please call us back with additional questions
Impression / Plan
-
83 yo female with PMH of paroxysmal A fib on eliquis, PAD, HTN, hyperlipidemia is admitted POD #1 s/p right femoral endarterectomy with intravascular lithotripsy to right superficial femoral artery occlusion, drug-coated balloon angioplasty to right
superficial femoral artery, antegrade diagnostic arteriogram of the right lower extremity.
We are consulted with A fib with RVR, noted on tele post op
# A fib with RVR
-h/o paroxysmal A fib
-eliquis 5mg bid has been resumed
-back in sinus: stop IV amiodarone
-outpatient amiodarone 200mg bid for 2 week post op course
# PAD
-post op care per vascular surgery
-cont ASA, statin
# HTN
-BP stable: continue diltiazem
Physical Exam
Vital Signs/Labs
Vital Signs
Temp Pulse Resp BP Pulse Ox
97.6 F 66 18 155/71 98
01/10/24 07:05 01/10/24 07:05 01/10/24 07:05 01/10/24 07:05 01/10/24 07:05
01/09/24 01/10/24 01/11/24
06:59 06:59 06:59
Actual Weight 79.56 kg 80.286 kg
01/09/24 07:15
01/10/24 08:21
PT 13.9 Sec (11.4-14.6) 01/06/24 03:41
INR 1.09 01/06/24 03:41
APTT 32.8 Sec (23.4-35.0) 01/06/24 03:41
Magnesium 2.2 mg/dl (1.6-2.3) 01/05/24 15:36
Physical Exam
Constitutional: No acute distress and Comfortable
EENT: Moist mucous membranes
Cardiovascular: Rhythm & rate is regular, Pedal edema is absent, JVD pressure is normal and Systolic murmur absent
Respiratory: Respiratory effort normal and Lungs clear to auscul.
GI: Soft, Distention absent and Flat
Neuro/Psych: AO x 3
Data Reviewed
-
Date of Service: January 10, 2024
EKG: Other (Tele: SR, PAC's brief A fib overnight)
Labs: Labs Reviewed by me
[2024-01-10 11:05] VITALS: BP 141/68
--- NOTE | 2024-01-10 11:44 | W.PN.NEPH.PH ---
Today's Communication / Plan
-
- okay for d/c
Assessment/Plan
-
Assessment:
Hyponatremia
Afib with RVR
PAD
HTN
Plan:
- baseline sodium around 130s, now down to 124, back up to 130
- urine studies consistent with hypovolemic hyponatremia
- okay to hold fluids
- encouraged PO intake
okay for d/c from nephrology standpoint
-
-
Date of Service: January 10, 2024
CC / HPI / ROS
-
Chief Complaint:
hyponatremia
History of Present Illness:
Na 124 --> 130 with normal saline
Review of Systems:
feeling better today
anxious to go home
Labs
-
Labs:
WBC 8.5 10^3/uL (4.8-10.8) 01/09/24 07:15
RBC 3.03 10^6/uL (4.20-5.40) L 01/09/24 07:15
Hgb 10.1 g/dL (12.0-16.0) L 01/09/24 07:15
Hct 28.4 % (37.0-47.0) L 01/09/24 07:15
Plt Count 191 10^3/uL (130-400) 01/09/24 07:15
Sodium 130 mmol/L (135-145) L 01/10/24 08:21
Potassium 3.7 mmol/L (3.5-5.1) 01/10/24 08:21
Chloride 102 mmol/L (98-107) 01/09/24 07:15
Carbon Dioxide 21 mmol/L (22-30) L 01/09/24 07:15
BUN 8 mg/dl (7-17) 01/09/24 07:15
Creatinine 0.5 mg/dL (0.6-1.0) L 01/09/24 07:15
eGFR > 60.00 01/09/24 07:15
Glucose 101 mg/dl (70-99) H 01/09/24 07:15
Calcium 8.6 mg/dl (8.4-10.2) 01/09/24 07:15
Albumin 3.2 g/dl (3.5-5.0) L 01/08/24 16:38
Physical Exam
-
Vital Signs:
Vital Signs
Temp Pulse Resp BP Pulse Ox
97.6 F 66 18 155/71 98
01/10/24 07:05 01/10/24 07:05 01/10/24 07:05 01/10/24 07:05 01/10/24 07:05
Cardiovascular:: Regular rate and rhythm
Respiratory:: Bilateral: CTA
Lung Excursion:: Normal
Abdomen:: Nontender and Soft
Bowel Sounds:: Normal
Extremity Edema:: None: Bilateral:
Andres Catheter: No
--- NOTE | 2024-01-10 13:21 | VATNOTE ---
Left forearm previous IV amiodarone infiltrate remains firm swollen and tender to touch, warm compress applied for patient comfort. Will continue to monitor.
[2024-01-10 15:00] VITALS: BP 105/52
[2024-01-10] MEDS: NSS IV (15:08)
== END 2024-01-10 15:25 | disposition home or self-care (01) | DRG 254 ==
LOC: 2 NORTH 08:11
PROVIDERS: Nurse Practitioner; Nurse Practitioner Acute Care; Student in an Organized Health Care Education/Training Program; ADMITTING PHYSICIAN Surgery Vascular Surgery; CONSULT PHYSICIAN Internal Medicine; CONSULT PHYSICIAN Student in an Organized Health Care Education/Training Program; FAMILY PHYSICIAN Internal Medicine Geriatric Medicine; OTHER PHYSICIAN Internal Medicine Critical Care Medicine
PROC: 047 Lower Arteries, Dilation (ICD-10-PCS; 2024-01-05)
PROC: 04CK0ZZ Extirpation of Matter from Right Femoral Artery, Open Approach (ICD-10-PCS; 2024-01-05)
PROC: 04UK0KZ Supplement Right Femoral Artery with Nonautologous Tissue Substitute, Open Approach (ICD-10-PCS; 2024-01-05)
DX: I48.0 Paroxysmal atrial fibrillation (principal); Z79.01 Long term (current) use of anticoagulants; E78.00 Pure hypercholesterolemia, unspecified; I70.201 Unspecified atherosclerosis of native arteries of extremities, right leg
CPT/HCPCS: 88304; 88311; 35371; 36415; 71045; 71046; 75710; 80048; 80053; 83735; 83935; 84132; 84295; 84300; 85025; 85027; 85610; 85730; 86850; 86900; 86901; 87070; 93005; 97116; 97162; 97530; C1769; C1894; C2623; C9764; Q9967

== ENCOUNTER → 2024-01-19 13:01 | Outpatient (REF) | payer MEDICARE, SELFPAY | LOC: RAD 13:01 | PROVIDERS: ATTENDING PHYSICIAN Internal Medicine Geriatric Medicine | DX: T14.90XA Injury, unspecified, initial encounter (principal); M25.511 Pain in right shoulder | CPT/HCPCS: 73080 ==

== ENCOUNTER → 2024-02-17 14:49 | Outpatient (REF) | payer MEDICARE, SELFPAY | LOC: HWRCS 14:49 | PROVIDERS: ATTENDING PHYSICIAN Nurse Practitioner Gerontology; FAMILY PHYSICIAN Internal Medicine Geriatric Medicine | DX: I48.0 Paroxysmal atrial fibrillation (principal) | CPT/HCPCS: 93306 ==

== ENCOUNTER → 2024-02-24 12:50 | Outpatient (REF) | payer MEDICARE, SELFPAY | LOC: RAD 12:50 | PROVIDERS: ATTENDING PHYSICIAN Physician Assistant; FAMILY PHYSICIAN Internal Medicine Geriatric Medicine | DX: I77.9 Disorder of arteries and arterioles, unspecified (principal) | CPT/HCPCS: 93922; 93925 ==

== ENCOUNTER 2024-04-08 09:57 | Day surgery (SDC) | payer MEDICARE, SELFPAY ==
[2024-04-08] VITALS (15 sets, daily range): BP systolic 138–200; BP diastolic 72–85; BMI 27.2
[2024-04-08 13:46] LABS: ACT-LR - POC 335 Seconds (116-155)
[2024-04-08] MEDS: CARDIZEM CD 120 MG PO (15:25)
[2024-04-08] MEDS: APRESOLINE 5 MG IV (16:25)
--- NOTE | 2024-04-08 16:42 | ITS.CL.CATH ---
[facility] - Catheterization
Cardiac Catheterization
Procedure Report:
CARDIAC CATHETERIZATION REPORT
Date of Procedure: 04/08/2024
Referring: Isaiah Sevilla M.D.
INDICATION: Midsternal, left-sided chest pain, multiple CAD risk factors.
PROCEDURE:
1. Left heart catheterization.
2. Coronary angiography.
3. IFR of the ostial RCA.
ACCESS:
6 [place] right common femoral artery using a modified Seldinger technique with a micropuncture kit under ultrasound guidance.
CATHETERS:
1. 6 [place] JR4.
2. 6 [place] JL 4.
3. A 6 [place] JR4 guiding catheter.
HEMODYNAMIC DATA
Weight (kg): 76.2
AO (s/d/x, mmHg): 196/80/125
LV (s/x mmHg): 198/24
LEFT VENTRICULOGRAPHY: Not performed.
CORONARY ANGIOGRAPHY
Dominance: Right.
Left Main: Normal size, bifurcating vessel. There is no coronary artery disease.
LAD: Normal size vessel with a diminutive distal margin, giving rise to 3 diagonals. There is no coronary artery disease. The distal LAD is relatively small.
Ramus: Congenitally absent.
Circumflex: Small size, nondominant vessel. There is no coronary artery disease.
RCA: Large size, dominant vessel with a large posterolateral arcade supplying the entire inferior and inferolateral wall. There is an eccentric lucency within the ostial RCA.
INTERVENTION(S)
1. Successful IFR of the ostial RCA lesion, demonstrating nonocclusive disease (IFR = 0.97).
The decision was made to perform physiologic testing. The diagnostic catheter was removed over a wire and exchanged for a(n) 6 [place] JR4 guiding catheter. The guiding catheter was advanced into the ascending aorta. Additional heparin was given to
obtain an ACT greater than 250 seconds. An iFR wire was zeroed outside of the body, then inserted into the guiding sheath. The wire was advanced and the transducer was normalized just outside of the guiding catheter tip while it was still in the
ascending aorta. The catheter was then engaged in the ostium of the right coronary artery. The wire was advanced into the proximal RCA, distal to the radial lucency. Three iFR measurements were taken. The lesion was determined to be nonocclusive
(0.97).
Closure Device: 6 [place] Angio-Seal.
Radiation (mGy): 276.76
DAP (cm2.Gy): 20.7258
Fluoroscopy time (minutes): 3.5
Sedation time (minutes): 38
CONCLUSIONS
1. Right dominant circulation with a relatively small LAD and a nonocclusive, eccentric radiolucency in the ostial RCA (IFR = 0.97).
2. Severely elevated filling pressures (LVEDP = 24 mmHg at 76.2 kg).
3. Severe systemic hypertension.
RECOMMENDATIONS:
1. Expectant management after cardiac catheterization via right femoral approach.
2. Limited weight bearing for one week.
3. Aggressive blood pressure control.
4. Aggressive risk factor modification with high-dose, high potency statin and primary prevention aspirin.
5. Outpatient diuresis with BMP in 1 week.
Copy to: Isaiah Sevilla M.D., Kadie Goodson M.D.
Clayton Lamar DO, FACC, FACP
== END 2024-04-08 17:40 | disposition home or self-care (01) ==
LOC: CATH 09:57
PROVIDERS: ATTENDING PHYSICIAN Internal Medicine Cardiovascular Disease; FAMILY PHYSICIAN Internal Medicine Geriatric Medicine; OTHER PHYSICIAN Internal Medicine
DX: R07.9 Chest pain, unspecified (principal); I10 Essential (primary) hypertension; E78.2 Mixed hyperlipidemia; K21.9 Gastro-esophageal reflux disease without esophagitis; K90.0 Celiac disease; Z85.828 Personal history of other malignant neoplasm of skin; Z79.01 Long term (current) use of anticoagulants; Z79.82 Long term (current) use of aspirin
CPT/HCPCS: 93799; C1894; C1769; 85347; 93458; Q9967

== ENCOUNTER → 2024-09-02 14:30 | Outpatient (REF) | payer OTHER, SELFPAY | LOC: DHVS 14:30 | PROVIDERS: ATTENDING PHYSICIAN Surgery Vascular Surgery; FAMILY PHYSICIAN Internal Medicine Geriatric Medicine | DX: I77.9 Disorder of arteries and arterioles, unspecified (principal) | CPT/HCPCS: 93922; 93925 ==

== ENCOUNTER 2024-09-12 16:40 | Inpatient (IN) | payer OTHER, SELFPAY ==
[2024-09-12] VITALS (10 sets, daily range): BP systolic 20–187; BP diastolic 52–86
--- NOTE | 2024-09-12 12:44 | ED.GENMED ---
History of Present Illness
<Lilibeth Sutton PA-C - Last Filed: 09/12/24 15:51>
General
Chief Complaint: Fall
Source: patient
Exam Limitations: none
Time Seen by Provider: 09/12/24 11:32
Nursing documentation reviewed up to this point in time: agreed with
History of Present Illness
History of Present Illness:
83-year-old female with a history of A-fib on [employer] had a mechanical fall while she was in [facility] yesterday backwards on her left side. She did land on her left elbow. Patient was on the pavement/grass. She hit the left hip but does not
believe she struck her head. Patient was helped up and was able to walk. She had pain and swelling in the elbow which has gotten much more significant overnight with a very large hematoma limiting her range of motion of her left elbow. She cannot
supinate or pronate, it is held in flexion. She also has mild neck pain, anterior sternum type pain which is not worse with breathing and not associate with shortness of breath, mild left hip pain as well as bilateral knee soreness. She feels the
pain in her left elbow radiate up to her shoulder. She has not had any numbness tingling or weakness in her fingertips. Patient has been applying ice and took Tylenol. The pain is pretty severe
Past History
<Lilibeth Sutton PA-C - Last Filed: 09/12/24 15:51>
Past History
ED Past Medical History: Cancer, HTN, Hypercholesterolemia and Other
ED Past Surgical History: Appendectomy, Bowel resection and Other (Ovarian cyst removal, 'colon' surgery)
Social History
Tobacco: Non-smoker
Alcohol: Occasional
Drug: None
Personal:
Living: with family
Review of Systems
<Lilibeth Sutton PA-C - Last Filed: 09/12/24 15:51>
Review of Systems
Allergies reviewed?: Yes
All Other Systems: Not applicable
Phy Exam
<Lilibeth Sutton PA-C - Last Filed: 09/12/24 15:51>
Physical Exam
Physical Exam:
GENERAL: Alert , in no apparent distress
HEAD: NCAT
NECK: no midline tenderness, active ROM intact, no paraspinal muscle tenderness;
EYE: pupils equal and reactive, EOMs intact.
ENT: o/p clr, mmm. no hemotympanum
CARDIAC: Regular rate and rhythm, no edema
LUNGS: Clear breath sounds bilaterally, no acute respiratory distress, no wheezes/rales/rhonchi
ABDOMEN: Soft, without focal tenderness, no r/g, no cvat
NEUROLOGICAL: Alert and oriented, no focal neuro deficits, CN intact, 5/5 strength, sensation intact
SKIN: Warm and dry, very large hematoma extending from the mid forearm up to the mid upper arm with most significant ecchymosis along the posterior elbow with tenderness, no open bleeding
MUSCULOSKELETAL: Significant soft tissue swelling, hematoma, which is moderately tense to the left proximal forearm including up to her left mid upper arm, very limited range of motion, the elbow is held in flexion, because she cannot extend it,
there is normal neurovascular exam distally with normal pulse and cap refill and finger range of motion, wrist range of motion and normal sensation distally
Patient's right knee is mildly swollen, status post previous replacement, no significant effusion, full range of motion
Left hip mild tenderness left lateral greater trochanter region, no bruising, able to flex and rotate the hip
Left shoulder mildly tender, no swelling
PSYCH: Normal and appropriate interaction.
Course
<Lilibeth Sutton PA-C - Last Filed: 09/12/24 15:51>
Orders/Labs/Results
Orders:
Orders
09/12/24 12:26
CT Cervical Spine W/o Iv Contr Urgent
Comment:
Reason For Exam: fall, neck pain
CR Hip - LT w/wo Pel 2-3 Vw* Urgent
Comment:
Reason For Exam: left hip pain after fall
Include a pelvis x-ray?: Yes
Elbow, 3 view, Left [CR Elbow - Left Min 3 Views ] Urgent
Comment:
Reason For Exam: severe swelling elbow fall
09/12/24 12:27
CT Head W/o Iv Contrast Urgent
Comment:
Reason For Exam: fall on eliquis
09/12/24 12:28
CR Chest - 2 Views Urgent
Comment:
Reason For Exam: fall
09/12/24 12:29
Morphine Sulfate 2 mg IV NOW STA
09/12/24 12:31
CT Upper Ext Angio W/wo Iv Con Urgent
Comment:
Reason For Exam: L elbow swelling signfiicant hematoma fall
09/12/24 12:32
Humerus, Left 2 Views [CR Humerus - Left Min 2 Views*] Urgent
Comment:
Reason For Exam: fall
09/12/24 12:54
Basic Metabolic Panel Urgent
Complete Blood Count/With Diff Urgent
PTT Urgent
Prothrombin Time Urgent
Abnormal Lab Results
09/12/24
12:54
RBC 3.29 L 10^6/uL
(4.20-5.40)
Hgb 10.8 L g/dL
(12.0-16.0)
Hct 31.6 L %
(37.0-47.0)
MCH 32.8 H pg
(27.0-31.0)
Absolute Lymphs (auto) 0.6 L 10^3/uL
(1.2-3.4)
Neutrophils % 81.1 H %
(42.2-75.2)
Lymphocytes % 9.9 L %
(20.5-51.1)
PT 14.9 H Sec
(11.4-14.6)
APTT 35.8 H Sec
(23.4-35.0)
BUN 19 H mg/dl
(7-17)
Glucose 127 H mg/dl
(70-99)
09/12/24 12:54
09/12/24 12:54
Vital Signs
Initial and Last Documented VS:
Initial Vital Signs
Temp Pulse Resp BP Pulse Ox
36.8 C 73 20 145/81 99
09/12/24 11:07 09/12/24 11:07 09/12/24 11:07 09/12/24 11:07 09/12/24 11:07
Last Documented Vital Signs
Temp Pulse Resp BP Pulse Ox
36.8 C 71 16 138/79 98
09/12/24 11:07 09/12/24 15:15 09/12/24 15:15 09/12/24 15:15 09/12/24 15:15
<Nikki Mendoza MD - Last Filed: 09/12/24 13:46>
Orders/Labs/Results
Orders:
Orders
09/12/24 12:26
CT Cervical Spine W/o Iv Contr Urgent
Comment:
Reason For Exam: fall, neck pain
CR Hip - LT w/wo Pel 2-3 Vw* Urgent
Comment:
Reason For Exam: left hip pain after fall
Include a pelvis x-ray?: Yes
Elbow, 3 view, Left [CR Elbow - Left Min 3 Views ] Urgent
Comment:
Reason For Exam: severe swelling elbow fall
09/12/24 12:27
CT Head W/o Iv Contrast Urgent
Comment:
Reason For Exam: fall on eliquis
09/12/24 12:28
CR Chest - 2 Views Urgent
Comment:
Reason For Exam: fall
09/12/24 12:29
Morphine Sulfate 2 mg IV NOW STA
09/12/24 12:31
CT Upper Ext Angio W/wo Iv Con Urgent
Comment:
Reason For Exam: L elbow swelling signfiicant hematoma fall
09/12/24 12:32
Humerus, Left 2 Views [CR Humerus - Left Min 2 Views*] Urgent
Comment:
Reason For Exam: fall
09/12/24 12:54
Basic Metabolic Panel Urgent
Complete Blood Count/With Diff Urgent
PTT Urgent
Prothrombin Time Urgent
Abnormal Lab Results
09/12/24
12:54
RBC 3.29 L 10^6/uL
(4.20-5.40)
Hgb 10.8 L g/dL
(12.0-16.0)
Hct 31.6 L %
(37.0-47.0)
MCH 32.8 H pg
(27.0-31.0)
Absolute Lymphs (auto) 0.6 L 10^3/uL
(1.2-3.4)
Neutrophils % 81.1 H %
(42.2-75.2)
Lymphocytes % 9.9 L %
(20.5-51.1)
PT 14.9 H Sec
(11.4-14.6)
APTT 35.8 H Sec
(23.4-35.0)
BUN 19 H mg/dl
(7-17)
Glucose 127 H mg/dl
(70-99)
09/12/24 12:54
09/12/24 12:54
Vital Signs
Initial and Last Documented VS:
Initial Vital Signs
Temp Pulse Resp BP Pulse Ox
36.8 C 73 20 145/81 99
09/12/24 11:07 09/12/24 11:07 09/12/24 11:07 09/12/24 11:07 09/12/24 11:07
Last Documented Vital Signs
Temp Pulse Resp BP Pulse Ox
36.8 C 71 16 138/79 98
09/12/24 11:07 09/12/24 15:15 09/12/24 15:15 09/12/24 15:15 09/12/24 15:15
<Lilibeth Sutton PA-C - Last Filed: 09/12/24 15:51>
MDM/Problems Addressed
Differential Diagnosis Includes:
hematoma, compartment syndrome, fracture, active bleeding
MDM/Problems Addressed:
83 y/o F
mechanical fall yesterday onto L elbow
large hematoma develoepd and now pt cannot range the arm
no numbness in the fingers
pulse intact distally
very minimal ROM of the arm
tense
d/w ed attending who saw the patient
agree with eval with CTA
cta shows small arterial bleeding within large hematoma
hg is stable
on eliquis
d/w dr. duarte from vascular who's PA saw pt and is going to take pt to the OR for hematoma wash out
admit to hospitalist.
<Lilibeth Sutton PA-C - Last Filed: 09/12/24 15:51>
*Critical Care Note
Total Time (30-74mins, 75-104mins- exclusive of procedures): Not Applicable
ED Attending Note
<Lilibeth Sutton PA-C - Last Filed: 09/12/24 15:51>
-
Portions of this chart may have been created with voice recognition software.� Occasional wrong word or��sound alike� substitutions may have occurred due to the inherent limitations of voice recognition software.
<Nikki Mendoza MD - Last Filed: 09/12/24 13:46>
ED Attending Note
Patient seen and examined by attending physician: Yes
I performed the substantive portion of visit, reviewed & personally made and approve the management plan that is documented in note by myself or CARON.: Yes
ED Attending Note:
Patient appears well and nontoxic. She is fully awake, alert and oriented x 3. She is smiling and conversational. Patient has strong pulses in bilateral upper extremities, however, patient has significant ecchymoses of her left elbow and upper
arm and is unable to extend her left upper extremity due to pain and swelling. Left upper arm is taut and extremely swollen.
Discharge Plan
Departure
Patient Disposition: Admit
Date of Disposition: 09/12/24
Time of Disposition: 15:44
Admit to: Med/Surg
Presentation/result/management discussed w/ accepting MD/DO: Hospitalist
Condition: Fair
Covid-19: Not Applicable
Discharge Problem:
Hematoma of arm, Arterial hemorrhage
Prescriptions:
No Action
alprazolam 1 MG tablet
1.5 mg PO HS
[place]-3 Plus Vitamin D3 1 EACH capsule
1 ea PO BID
acetaminophen 650 mg Tablet Extended Release
1,300 mg PO BIDPRN PRN (Reason: pain)
diltiazem HCl 120 mg Capsule,Extended Release 24 Hr
120 mg PO DAILY
Saccharomyces boulardii [Florastor] 250 mg Capsule
250 mg PO QPM
fexofenadine-pseudoephedrine [Kiya-D 24 Hour] 180-240 mg Tablet Extended Release 24 Hr
1 tab PO DAILY PRN (Reason: allergies)
mecobalamin (vitamin B12) [B12 Active] 1,000 mcg Tablet,Chewable
1,000 mcg PO QPM
docusate sodium 100 mg capsule
100 mg PO QPM
aspirin 81 mg Tablet,Delayed Release (Dr/Ec)
81 mg PO DAILY Qty: 90 0RF
amiodarone 200 mg Tablet
200 mg PO DAILY
folic acid 400 mcg Tablet
0.4 mg PO QPM
escitalopram oxalate 5 mg Tablet
10 mg PO HS
Eliquis 5 mg Tablet
5 mg PO BID
Caltrate 600 plus D 600 mg-20 mcg (800 unit) Tablet,Chewable
1 tab PO QPM
atorvastatin 40 mg tablet
40 mg PO QPM Qty: 90 3RF
furosemide [Lasix] 40 mg tablet
40 mg PO DAILY Qty: 90 3RF
nitroglycerin 0.4 mg tablet, sublingual
0.4 mg sublingual [id number] PRN (Reason: chest pain) Qty: 25 2RF
Referrals:
Kadie Goodson MD [Family Provider] -
Interventions
Interventions:
*Risk Screen - Suicide Last Done: 09/12/24 11:07
*General Assessment Last Done: 09/12/24 11:07
*Neglect/Abuse Screening Last Done: 09/12/24 11:07
*ED- Fall Risk Assessment Last Done: 09/12/24 14:11
*ED COVID-19 Vaccine History Last Done: 09/12/24 14:11
ED-Musculoskeletal Assessment Last Done: 09/12/24 11:43
ED- Neurological Assessment Last Done: 09/12/24 11:43
ED-Skin Assessment Last Done: 09/12/24 11:44
Discharge Date and Time
Print Language: MALAY
[2024-09-12 13:00] LABS: % Basophils 0.5 % (0-2); % Eosinophils 0.2 % (0-6); % Immature Granulocytes 0.2 % (0-0.5); % Lymphocytes 9.9 % (20.5-51.1); % Monocytes 8.1 % (1.7-9.3); % Neutrophils 81.1 % (42.2-75.2); Absolute Lymphocytes 0.6 10^3/uL (1.2-3.4); Absolute Monocytes 0.5 10^3/uL (0.1-0.6); Absolute Neutrophils 5.1 10^3/uL (1.4-6.5); Hematocrit 31.6 % (37.0-47.0); Hemoglobin 10.8 g/dL (12.0-16.0); Mean Corp Hgb Conc. 34.2 g/dL (33.0-37.0); Mean Corpuscular Hgb 32.8 pg (27.0-31.0); Mean Platelet Volume 9.7 fL (7.4-10.4); Nucleated Red Blood Cells % 0 %; Platelet Count 265 10^3/uL (130-400); Red Blood Cell Count 3.29 10^6/uL (4.20-5.40); White Blood Cell Count 6.3 10^3/uL (4.8-10.8)
[2024-09-12] MEDS: MORPHINE SULFATE 2 MG IV (13:00)
[2024-09-12 13:10] LABS: INR 1.14; PT 14.9 Sec (11.4-14.6)
[2024-09-12 13:11] LABS: APTT 35.8 Sec (23.4-35.0)
[2024-09-12 13:14] LABS: Blood Urea Nitrogen 19 mg/dl (7-17); Calcium 9.7 mg/dl (8.4-10.2); Carbon Dioxide 30 mmol/L (22-30); Chloride 107 mmol/L (98-107); Glucose 127 mg/dl (70-99); Sodium 142 mmol/L (135-145); eGFR > 60.00
--- NOTE | 2024-09-12 15:43 | CON.VAS ---
Addendum entered and electronically signed by Brendan Andres III, MD 09/12/24 17:41:
This patient was seen and examined in collaboration with LYNDON Patel. I agree with the history and physical exam as well as the assessment and plan. I have the following additions:
Patient well-known to me from prior lower extremity vascular procedures
On systemic anticoagulation for atrial fibrillation
Suffered a fall yesterday while in [facility]
Trauma to her left arm
Last dose of anticoagulation yesterday evening
Imaging reveals large intramuscular hematoma of the triceps muscle with focal area of active extravasation
On examination she is uncomfortable
Left posterior upper arm is tight and very tender to the touch
Ecchymotic
Area extends below the elbow
She has significantly limited range of motion at the elbow due to pain and discomfort
Plan for washout and evacuation of hematoma
Technical aspects of this procedure were discussed with her and her family in detail. The benefits and rationale for this approach were discussed with all of them in detail. Operative risks were discussed with them in detail including but not
limited to bleeding, wound healing complications, infection, need for additional trips back to the operating room I was also clear with her that we will have to hold her systemic anticoagulation for a period of time postoperatively.
The alternative strategy of Dani wrap compression and observation was offered to her as well.
She expressed a clear understanding of our conversation and her options and would like to proceed with surgical intervention.
Signed:
Brendan Andres III, MD
[facility]
[phone] (cymy)
Original Note:
Medical History
-
Chief Complaint: Left elbow pain
History of Present Illness:
83-year-old female with past medical history of A-fib on Eliquis, hypertension, hypercholesterolemia, PAD (procedures listed below), here status post fall yesterday while in [facility]. Patient states she fell backwards to her left side landed
on her left hip and elbow. Denies hitting her head. She was helped up and able to walk. She had pain and swelling to the elbow last night but was significantly worse upon waking this morning. She is having trouble with range of motion in her
left elbow. She notes that she had had tingling in her left hand last night but does not feel that she has any tingling or weakness today.
Patient seen at bedside in the ER with Dr. Andres this afternoon.
CT upper extremity:
LARGE (20 cm in length) ACUTE SOFT TISSUE HEMATOMA in the posterior left upper arm involving the left triceps muscle and overlying subcutaneous fat extending from the level the left elbow to the proximal-mid left humeral diaphysis.
Small amount of ACUTE ACTIVE ARTERIAL EXTRAVASATION in the inferomedial aspect of the hematoma located above the level of the elbow joint posterior to the cubital tunnel.
Vascular procedure history:
06/10/2021: Left common femoral endarterectomy
07/02/2021: Exploration of left groin wound with drainage of seroma, debridement, vancomycin irrigation, muscle flap
01/05/2024: Right common femoral endarterectomy, IVF right SFA, drug-coated balloon right SFA
Past Medical History
Past Medical History: Other (Cancer, hypertension, hypercholesterolemia, PAD)
Past Surgical History: Appendectomy, Bowel Resection and Other (See above)
Social History
Tobacco: Non-Smoker
Alcohol: Occasional
Drug: None
Personal:
Living: With Family
Family History
Family History: Reviewed & Not Pertinent
Allergies / Home Medications
Allergy/AdvReac Type Severity Reaction Status Date / Time
adhesive tape Allergy Rash Verified 09/12/24 11:11
gluten Allergy Constipation/ Verified 09/12/24 11:11
Abdominal
pain/
Headache
NSAIDS (Non-Steroidal AdvReac Oral ulcers Verified 09/12/24 11:11
Anti-Inflamma
oxycodone AdvReac Severe Verified 09/12/24 11:11
constipation
Sulfa (Sulfonamide AdvReac Diarrhea/Abdominal Verified 09/12/24 11:11
Antibiotics) pain
�Medication �Instructions �Recorded �Confirmed �Type
alprazolam 1 mg tablet 1.5 mg PO HS Mental Health/Anxiety 07/15/09 04/08/24 History
omega-3 650 mg-dha 400 mg-epa 200 1 ea PO BID Supplement 06/18/21 04/08/24 History
mg-fish oil-vit D3 300 unit
capsule ([place]-3 Plus Vitamin D3)
Saccharomyces boulardii 250 mg 250 mg PO QPM Supplement 12/25/23 04/08/24 History
capsule (Florastor)
acetaminophen 650 mg 1,300 mg PO BIDPRN PRN pain 12/25/23 04/08/24 History
tablet,extended release
diltiazem HCl 120 mg capsule,24 120 mg PO DAILY Heart 12/25/23 04/08/24 History
hr,extended release Disease/Condition
docusate sodium 100 mg capsule 100 mg PO QPM STOOL SOFTENER 12/25/23 04/08/24 History
fexofenadine-pseudoephedrine ER 1 tab PO DAILY PRN allergies 12/25/23 04/08/24 History
180 mg-240 mg tablet,ext.release
24 hr (Kiya-D 24 Hour)
mecobalamin (vitamin B12) 1,000 1,000 mcg PO QPM Supplement 12/25/23 04/08/24 History
mcg chewable tablet (B12 Active)
aspirin 81 mg tablet,delayed 81 mg PO DAILY #90 tabs 01/08/24 04/08/24 Rx
release
amiodarone 200 mg tablet 200 mg PO DAILY 04/08/24 04/08/24 History
apixaban 5 mg tablet (Eliquis) 5 mg PO BID 04/08/24 04/08/24 History
atorvastatin 40 mg tablet 40 mg PO QPM #90 tabs 04/08/24 Rx
calcium 600 mg (as carbonate)-vit 1 tab PO QPM 04/08/24 04/08/24 History
D3 20 mcg (800 unit) chewable
tablet (Caltrate plus D)
escitalopram oxalate 5 mg tablet 10 mg PO HS 04/08/24 04/08/24 History
folic acid 400 mcg tablet 0.4 mg PO QPM 04/08/24 04/08/24 History
furosemide 40 mg tablet (Lasix) 40 mg PO DAILY #90 tabs 04/08/24 Rx
nitroglycerin 0.4 mg sublingual 0.4 mg sublingual [id number] PRN 04/08/24 Rx
tablet chest pain #25 tabs
Review of Systems
-
History Source: Patient and Family
Constitutional: Reports No Symptoms
EENT: Reports No Symptoms
Respiratory: Reports No Symptoms
Cardiac: Reports No Symptoms
Vascular: Reports Tingling (Left fingertips-resolved); Denies Leg Pain / Claudication
Abdomen/GI: Reports No Symptoms
: Reports No Symptoms
Musculoskeletal: Reports Muscle Pain, Muscle Stiffness and Edema
Skin: Reports Other (Ecchymosis left upper extremity)
Neurological: Reports No Symptoms
Physical Exam
Vital Signs
Temp Pulse Resp BP Pulse Ox
98.2 F 71 16 138/79 98
09/12/24 11:07 09/12/24 15:15 09/12/24 15:15 09/12/24 15:15 09/12/24 15:15
Lab Results
09/12/24 12:54
09/12/24 12:54
Physical Exam
General: No Apparent Distress
HEENT: Normocephalic and Atraumatic
Respiratory: Non Labored Respirations
Cardiac: Negative JVD
GI: Soft and Non Tender
Musculoskeletal: No Clubbing, No Cyanosis and Edema (Left upper extremity)
Skin: Other (Moderate ecchymosis to left upper extremity)
Neuro: Awake, Alert and Oriented
Psych: Calm
Assessment / Plan
-
83-year-old female with left lower extremity hematoma status post fall on Eliquis
CT shows active extravasation in the left upper extremity
Plan:
-N.p.o.
-OR today for hematoma washout of left upper extremity
Data Reviewed
-
CT Scan: Discussed with Patient
Labs: Labs Reviewed by me
--- NOTE | 2024-09-12 16:20 | HPS.HSE ---
Family Physician
-
Family Physician: Kadie Goodson
Chief Complaint
-
fall
History of Present Illness
83-year-old female with past medical history of A-fib on Eliquis, hypertension, hypercholesterolemia, PAD, here status post fall yesterday while in [facility]. Patient states she fell backwards to her left side landed on her left hip and elbow.
she was walking on the sidewalk, lost balance and fell backwards to the grass. she landed on her left elbow. Denies hitting her head. She was helped up and able to walk. She had pain and swelling to the elbow last night but was significantly
worse upon waking this morning.she was not able to bent or move her left elbow. denied any tingling. Patient denied any headache, dizzy or syncope. Patient denied blurry vision, numbness, tingling. Patient denied any chest pain or short of
breath. Patient denied any abdominal pain, nausea, vomiting or diarrhea. Patient denied dysuria materia.
CT with impression of LARGE (20 cm in length) ACUTE SOFT TISSUE HEMATOMA in the posterior left upper arm involving the left triceps muscle and overlying subcutaneous fat extending from the level the left elbow to the proximal-mid left humeral
diaphysis.
Small amount of ACUTE ACTIVE ARTERIAL EXTRAVASATION in the inferomedial aspect of the hematoma located above the level of the elbow joint posterior to the cubital tunnel.
Plan for washout tonight admitting for further management.
Medical History
Past Medical History
Past Medical History: Reports Other
Additional Past Medical History:
Hypertension, hyperlipidemia, peripheral artery disease
Past Surgical History: Reports Other
Additional Past Surgical History:
Appendectomy, bowel resection, left common femoral endarterectomy, exploration of left groin wound with drainage of seroma, debridement, muscle flap, right common femoral endarterectomy
Social History
Tobacco: Non-smoker
Alcohol: None
Drug: None
Family History
Family History: Not pertinent
Allergies / Home Medications
Allergies reflects when Allergies were last updated in [employer].
Home Medications with original date entered in [employer]
Allergy/Medication List:
Allergies
Allergy/AdvReac Type Severity Reaction Status Date / Time
adhesive tape Allergy Rash Verified 09/12/24 11:11
gluten Allergy Constipation/ Verified 09/12/24 11:11
Abdominal
pain/
Headache
NSAIDS (Non-Steroidal AdvReac Oral ulcers Verified 09/12/24 11:11
Anti-Inflamma
oxycodone AdvReac Severe Verified 09/12/24 11:11
constipation
Sulfa (Sulfonamide AdvReac Diarrhea/Abdominal Verified 09/12/24 11:11
Antibiotics) pain
Home Medications
alprazolam 1 mg tablet 1.5 mg PO HS Mental Health/Anxiety 07/15/09
omega-3 650 mg-dha 400 mg-epa 200 mg-fish oil-vit D3 300 unit capsule ([place]-3 Plus Vitamin D3) 1 ea PO BID Supplement 06/18/21
Saccharomyces boulardii 250 mg capsule (Florastor) 250 mg PO QPM Supplement 12/25/23
acetaminophen 650 mg tablet,extended release 1,300 mg PO BIDPRN PRN pain 12/25/23
diltiazem HCl 120 mg capsule,24 hr,extended release 120 mg PO DAILY Heart Disease/Condition 12/25/23
docusate sodium 100 mg capsule 100 mg PO QPM STOOL SOFTENER 12/25/23
fexofenadine-pseudoephedrine ER 180 mg-240 mg tablet,ext.release 24 hr (Kiya-D 24 Hour) 1 tab PO DAILY PRN allergies 12/25/23
mecobalamin (vitamin B12) 1,000 mcg chewable tablet (B12 Active) 1,000 mcg PO QPM Supplement 12/25/23
aspirin 81 mg tablet,delayed release 81 mg PO DAILY #90 tabs 01/08/24
amiodarone 200 mg tablet 200 mg PO DAILY 04/08/24
apixaban 5 mg tablet (Eliquis) 5 mg PO BID 04/08/24
atorvastatin 40 mg tablet 40 mg PO QPM #90 tabs 04/08/24
calcium 600 mg (as carbonate)-vit D3 20 mcg (800 unit) chewable tablet (Caltrate plus D) 1 tab PO QPM 04/08/24
escitalopram oxalate 5 mg tablet 10 mg PO HS 04/08/24
folic acid 400 mcg tablet 0.4 mg PO QPM 04/08/24
furosemide 40 mg tablet (Lasix) 40 mg PO DAILY #90 tabs 04/08/24
nitroglycerin 0.4 mg sublingual tablet 0.4 mg sublingual [id number] PRN chest pain #25 tabs 04/08/24
Review of Systems
-
Constitutional: Reports No Symptoms
EENT: Reports No Symptoms
Respiratory: Reports No Symptoms
Cardiac: Reports No Symptoms
Abdomen/GI: Reports No Symptoms
: Reports No Symptoms
Musculoskeletal: Reports Other (Left upper arm swelling, hematoma)
Skin: Reports No Symptoms
Neurological: Reports No Symptoms
Endocrine: Reports No Symptoms
Hematologic/Lymphatic: Reports No Symptoms
Psych: Reports No Symptoms
Physical Exam
Vital Signs
Vital Signs
Temp Pulse Resp BP Pulse Ox
98.2 F 71 16 138/79 98
09/12/24 11:07 09/12/24 15:15 09/12/24 16:00 09/12/24 15:15 09/12/24 15:15
Physical Exam
General: Well Developed, Well Nourished and No Apparent Distress
HEENT: NormoCephalic, Moist mucous membranes and Atraumatic
Respiratory: Clear
Cardiac: S1/S2 and Regular Rhythm; No Murmur or Rub
GI: Soft, Non Tender, Non Distended and Normal Bowel Sounds; No Organomegaly
Rectal: Deferred by Provider
Musculoskeletal: No Clubbing, No Cyanosis and No Edema
Skin: Rash and Other (Moderate ecchymosis to left upper extremities, edema)
Neuro: AO x 3 and Nonfocal/grossly intact
Psych: Calm
Laboratory Results
-
09/12/24 12:54
09/12/24 12:54
Laboratory Results
PT 14.9 Sec (11.4-14.6) H 09/12/24 12:54
INR 1.14 09/12/24 12:54
APTT 35.8 Sec (23.4-35.0) H 09/12/24 12:54
Data Reviewed
-
CT Scan: Report Reviewed by me
Lab Data: Labs Reviewed by me
Impression/Plan
-
# Mechanical fall with a large left elbow upper arm hematoma
-Plan for washout today by Dr. Andres
-PT/OT consulted
-Hemoglobin stable
-CT with impression of ARGE (20 cm in length) ACUTE SOFT TISSUE HEMATOMA in the posterior left upper arm involving the left triceps muscle and overlying subcutaneous fat extending from the level the left elbow to the proximal-mid left humeral
diaphysis. Small amount of ACUTE ACTIVE ARTERIAL EXTRAVASATION in the inferomedial aspect of the hematoma located above the level of the elbow joint posterior to the cubital tunnel.
-Head CT with no acute findings.MODERATE to SEVERE WHITE MATTER LEUKOARAIOSIS in the frontal and parietal lobes.
-Humerus x-ray with impression of Moderate soft tissue swelling and subcutaneous edema in the medial left upper arm. Severe soft tissue swelling in the distal arm, elbow, and posterior proximal forearm suggesting a large acute. No radiographic
evidence for acute fracture or dislocation.
-Hip x-ray without acute failure
-Elbow x-ray with impression of Moderate soft tissue swelling and subcutaneous edema in the medial left upper arm. Severe soft tissue swelling in the distal arm, elbow, and posterior proximal forearm suggesting a large acute soft tissue contusion.No
radiographic evidence for acute fracture or dislocation.
-Cervical spine CT with no acute findings.
# Anemia of chronic disease
-hgb stable at 10.8
-Continue to monitor
# Atrial fib Paroxysmal
-Hold Eliquis
-Amiodarone, Cardizem continued
# History of P AD
-Aspirin statin continued
-Status post right femoral endarterectomy
#hypertension
-Blood pressure stable
-Lasix continued
# Anxiety
-Alprazolam continued
-Escitalopram continued
# DVT prophylaxis
-SCDs
# CODE STATUS
-Full code
--- NOTE | 2024-09-12 16:50 | W.PN.UPDATE ---
Update Note
Progress Note Update
This is an addendum to H&P written by Yessenia Ramos on 09/12/2024. Patient seen and examined independently with [employer].
83-year-old female past medical history of atrial fibrillation on Eliquis, PAD, hypertension, hyperlipidemia, and anxiety/depression, CLL presenting with fall yesterday with fall onto her left elbow with significant pain and swelling of the elbow.
Vital signs normal. Hemoglobin stable 10.8.
CT angiography shows large 20 cm acute soft tissue hematoma in the posterior left upper arm involving the left triceps and subcutaneous fat extending from the level of the left elbow to the proximal mid left humeral diaphysis, small amount of acute
active arterial extravasation.
NPO. Hold Eliquis. Vascular surgery to perform washout today.
--- NOTE | 2024-09-12 19:01 | OR.RPT ---
Operative Report
Operative Report
Date of Operation: 09/12/2024
Pre Op Diagnosis: Left upper extremity intramuscular hematoma involving the triceps muscle
Post Op Diagnosis: Left upper extremity intramuscular hematoma involving the triceps muscle
Procedure: Evacuation and washout of left upper extremity intramuscular hematoma
Surgeon: Brendan Andres III, MD
Water Rights Specialist: Kyler Hall MD, PGY4
Anesthesia: General
Complications: None
Estimated Blood Loss: 50 cc
History and Indications for Procedure: 83-year-old female with intramuscular hematoma involving the triceps muscle, left upper extremity
Procedure in Detail: Anju Pruitt was correctly identified and placed supine on the operating table. Her left arm was abducted 90 degrees on a side table. She received preoperative antibiotics. A timeout procedure was performed with the nursing
and anesthesia staff confirming the patient's identity as well as nature and laterality of the procedure.
We made an incision over the posterior aspect of her arm above the elbow. Electrocautery was used on the subcutaneous tissue. We opened the fascia with electrocautery and immediately encountered a tense hematoma. The hematoma was evacuated with
suction and digital manipulation. We then irrigated the cavity with warm saline solution. The hematoma cavity was closely inspected and no active bleeding was identified. Areas of raw surface oozing was controlled with electrocautery. The wound
was packed with gauze. After several minutes we removed the gauze and re-inspected the wound. No active bleeding was identified. Topical hemostatic agent was placed in the wound bed. A Scott drain was brought out through separate stab incision at
the skin and secured in place with a nylon suture. This was left deep within the hematoma cavity. The wound was then closed in layers and sterile dressings were applied.
The patient tolerated the procedure well was taken to the recovery room in good condition.
Attestation: I was present and responsible for the entire procedure
Signed:
Brendan Andres III, MD
[facility] Vascular Surgery
[phone] (thyr)
--- NOTE | 2024-09-12 19:15 | W.SUR.POST ---
Surgical Immediate Post Op
Note
Pre Op Diagnosis: L arm hematoma
Post Op Diagnosis: L arm hematoma
Procedure Performed: L arm hematoma incision and drainage
Primary Surgeon: Brendan Andres
Secondary Surgeons: Kyler Hall
Anesthesia: see anesthesia flowsheet
Estimated Blood Loss: 20cc
Fluids: see anesthesia flowsheet
Drains/Shunts: one xi in surgical bed
Specimens/Cultures: none
Doppler/Duplex/Angio (Y/N): none
Complications: none
Operative Findings: Incision and drainage of L arm hematoma. No bleeding vessel identified. Xi drain left in surgical bed. Nu-knit and fibrillar left in surgical bed.
[2024-09-12] MEDS: SUBLIMAZE 50 MCG IV (19:45)
[2024-09-12] MEDS: CARDIZEM CD PO (21:11)
[2024-09-12] MEDS: FOLVITE PO (21:21)
[2024-09-12] MEDS: FLORASTOR PO (21:21)
[2024-09-12] MEDS: LIPITOR 40 MG PO (21:22)
[2024-09-12] MEDS: XANAX 1.5 MG PO (21:22)
[2024-09-12] MEDS: COLACE 100 MG PO (21:22)
[2024-09-12] MEDS: PACERONE 200 MG PO (21:22)
[2024-09-12] MEDS: OSCAL 500 + D PO (21:24)
[2024-09-12] MEDS: LEXAPRO PO (22:04)
[2024-09-13] VITALS (8 sets, daily range): BP systolic 132–145; BP diastolic 59–77; PULSE 72; O2SAT 97
[2024-09-13 07:20] LABS: Hematocrit 28.4 % (37.0-47.0); Hemoglobin 9.1 g/dL (12.0-16.0); Mean Corpuscular Hgb 31.9 pg (27.0-31.0); Mean Corpuscular Volume 99.6 fL (81.0-99.0); Mean Platelet Volume 9.8 fL (7.4-10.4); Platelet Count 230 10^3/uL (130-400); Red Blood Cell Count 2.85 10^6/uL (4.20-5.40); Red Cell Dist. Width 14.1 % (11.5-14.5); White Blood Cell Count 7.6 10^3/uL (4.8-10.8)
[2024-09-13 07:26] LABS: APTT 31.4 Sec (23.4-35.0); INR 1.11; PT 14.6 Sec (11.4-14.6)
[2024-09-13 07:39] LABS: Blood Urea Nitrogen 16 mg/dl (7-17); Calcium 9.3 mg/dl (8.4-10.2); Carbon Dioxide 28 mmol/L (22-30); Chloride 110 mmol/L (98-107); Estimated Creatinine Clearance 55 ml/min; Glucose 133 mg/dl (70-99); Potassium 4.4 mmol/L (3.5-5.1); Sodium 143 mmol/L (135-145); eGFR > 60.00
--- NOTE | 2024-09-13 07:55 | W.PN.HOSP.TC ---
Today's Communication/Plan
-
see PN
Assessment / Plan
Assessment / Plan
83yo F with PMHx Afib, PAD, HLD, atopic d/o, HFpEF came after she fell in [facility] while being there on the trip. No LOC described. Patient said that she just misstepped when waking from the grass onto the pavement. Howevert patient does have
chronic ballance problem and planned for outpatient ballance training. Found large LUE hematoma, underwent evacuation by VascSx on 09/12/24
A/P:
#Acute blood loss anemia, traumatic
CTA: LARGE (20 cm in length) ACUTE SOFT TISSUE HEMATOMA in the posterior left upper arm involving the left triceps muscle and overlying subcutaneous fat extending from the level the left elbow to the proximal-mid left humeral diaphysis, ACUTE ACTIVE
ARTERIAL EXTRAVASATION in the inferomedial aspect of the hematoma
VascSx: s/p hematoma evacuation, hold Eliquis for 72h, cont ASA
Follow H&H
CHeck iron, B12, folate
#L2 hemangioma
#DJD
Tylenol
PT/OT
No follow up for the hematoma advised
#Atelectasis
Incentive spirometry
#Thyroid nodules
mid and lower pole of the left lobe of the thyroid gland measuring 1.4 cm and 1.3 cm in size
Outpatient follow up with PCP
#Afib, unspecified
cont rate/rhythm control
telemetry
Patient aware of increased stroke risk while holding Eliquis and agreeable with the mgmt
#ASCVD
#PAD
#Atopic D/O
#Chronic HFpEF
cont home meds
DVT ppx SCDs
Full code
I have spent at least 58min reviewing chart, test reuslts, communication with consultants and providing direct patient care
Anticipated Discharge: 24 - 48 hours
Subjective/Interval History
-
Date of Service: September 13, 2024
Objective Data
-
Labs:
Laboratory Results
09/13/24
06:47
WBC 7.6
Hgb 9.1 L
Hct 28.4 L
Plt Count 230
PT 14.6
INR 1.11
APTT 31.4
Sodium 143
Potassium 4.4
Chloride 110 H
Carbon Dioxide 28
BUN 16
Creatinine 0.7
Glucose 133 H
Calcium 9.3
Vital Signs:
Vital Signs
Temp Pulse Resp BP Pulse Ox
97.9 F 77 18 133/69 96
09/13/24 03:15 09/13/24 03:15 09/13/24 03:15 09/13/24 03:15 09/13/24 03:15
I&O
09/12/24 09/13/24 09/14/24
06:59 06:59 06:59
Intake Total 655 / 655
Output Total
Balance 635 / 635
Review of Systems
-
History Source: Patient
All other systems: Reviewed and negative
Physical Exam
-
General: No Apparent Distress
HEENT: Normocephalic
Cardiac: Regular Rhythm
GI: Soft, Nontender and Nondistended
Musculoskeletal: No Clubbing, No Cyanosis, No Edema and Other (LUE in dressing)
Neuro: Awake, Alert, Oriented and AO x 3
Psych: Calm
[2024-09-13 08:11] LABS: Iron 50 ug/dl (37-170)
[2024-09-13 08:21] LABS: Percent Saturation 15 % (20-50); Total Iron Binding Capacity 319 ug/dl (265-497)
[2024-09-13] MEDS: METAMUCIL, KONSYL 1 PACKET PO (08:30)
[2024-09-13] MEDS: LEXAPRO 5 MG PO ×2 (08:30→20:35)
[2024-09-13] MEDS: COLACE 100 MG PO ×2 (08:31→20:35)
[2024-09-13] MEDS: VITAMIN B-12 1000 MCG PO (08:31)
[2024-09-13] MEDS: ASPIR LOW (ENTERIC COATED) 81 MG PO (08:31)
[2024-09-13] MEDS: LASIX 40 MG PO (08:33)
--- NOTE | 2024-09-13 08:52 | W.PN.VS ---
Addendum entered and electronically signed by Brendan Andres III, MD 09/13/24 18:40:
This patient was seen and examined in collaboration with LYNDON Albert. I agree with the history and physical exam as well as the assessment and plan.
Signed:
Brendan Andres III, MD
[facility] Vascular Surgery
[phone] (zkgl)
Original Note:
Today's Communication / Plan
-
Patient seen and examined at bedside with Dr. Brendan Andres III, below plan reviewed with attending.
Assessment/Plan
-
Assessment: 83-year-old female POD #1 Evacuation and washout of left upper extremity intramuscular hematoma
Plan:
Continue to hold anticoagulation for total of 72 hours
Continue I&O and drain management
Continue as needed pain medication
Encourage incentive spirometry
Subjective Data
-
Date of Service: September 13, 2024
Patient seen and examined at bedside, reports adequate postoperative pain management. Endorses improvement in left elbow movement and overall sensation of tightness at left upper extremity. Tolerating p.o. diet. Denies nausea, vomiting, fever,
and chills.
Objective Data
-
Vital Signs
Temp Pulse Resp BP Pulse Ox
97.5 F 65 17 138/61 97
09/13/24 07:26 09/13/24 08:33 09/13/24 07:26 09/13/24 08:33 09/13/24 08:38
Intake and Output
09/12/24 09/13/24 09/14/24
06:59 06:59 06:59
Intake Total 655 / 655
Output Total 20 / 20
Balance 635 / 635
Intake:
Oral fluids 480 / 480
IV fluids (Total) 175 / 175
NSS 175 / 175
Output:
Drain Output (Total) 20 / 20
Left Upper Arthur-Almonte A
Other:
Number of approximated MODERATE 1
amounts of urine
Lab Results
09/13/24 06:47
09/13/24 06:47
Calcium 9.3 mg/dl (8.4-10.2) 09/13/24 06:47
Physical Exam
-
No apparent distress, resting bed comfortably
No tachycardia
No dyspnea on room air
Left upper extremity with +1 edema, all compartments soft, RELL drain with serosanguineous output, ecchymosis present, left hand warm, left radial pulse +2 palpable
Left upper extremity dressing CDI
--- NOTE | 2024-09-13 09:26 | PTCARENOTE ---
pt aox3 left arm wrap in place. left arm bernarda to bulb suction draining serosanguineous.
[2024-09-13 11:04] LABS: Ferritin 20.4 ng/ml (11.1-264.0)
[2024-09-13 11:35] LABS: Folate 13.5 ng/ml (2.76-20); Vitamin B12 > 1000 pg/ml (239-931)
[2024-09-13] MEDS: FERRLECIT 110 MG IV (13:02)
[2024-09-13] MEDS: ULTRAM 25 MG PO ×2 (13:02→20:41)
--- NOTE | 2024-09-13 14:34 | CM ---
Patient seen at bedside.
IA completed
Lives in an apartment with her in [facility]
PLOF: independent, does not use device
DME: Wheelchair, walker, cane, shower chair
Has had [facility] in past, outpatient rehab
PT rec HH
Options reviewed
Called Cathy liaison at [facility] & updated
Referral entered for [facility]
PCP: Kadie Goodson
Pharmacy: [facility], [facility]
PLAN: Home with [facility] when medically stable
Fax #: [phone]
[2024-09-13] MEDS: CARDIZEM CD 120 MG PO (17:01)
[2024-09-13] MEDS: LIPITOR 40 MG PO (17:01)
[2024-09-13] MEDS: FOLVITE 0.4 MG PO (17:01)
[2024-09-13] MEDS: FLORASTOR 250 MG PO (17:01)
[2024-09-13] MEDS: OSCAL 500 + D 500 MG PO (17:02)
[2024-09-13] MEDS: PACERONE 200 MG PO (17:02)
[2024-09-13] MEDS: XANAX 1.5 MG PO (23:08)
[2024-09-14] MEDS: ULTRAM 25 MG PO ×2 (04:24→21:23)
[2024-09-14] MEDS: METAMUCIL, KONSYL 1 PACKET PO (07:39)
[2024-09-14] MEDS: LEXAPRO 5 MG PO ×2 (07:40→21:15)
[2024-09-14] MEDS: COLACE 100 MG PO ×2 (07:40→21:15)
[2024-09-14] MEDS: VITAMIN B-12 1000 MCG PO (07:40)
[2024-09-14] MEDS: ASPIR LOW (ENTERIC COATED) 81 MG PO (07:40)
[2024-09-14 08:00] VITALS: BP 105/52
[2024-09-14 08:13] LABS: % Basophils 0.5 % (0-2); % Eosinophils 4.3 % (0-6); % Immature Granulocytes 0.7 % (0-0.5); % Lymphocytes 17.7 % (20.5-51.1); % Monocytes 11.3 % (1.7-9.3); % Neutrophils 65.5 % (42.2-75.2); Absolute Eosinophils 0.3 10^3/uL (0-0.7); Absolute Lymphocytes 1.1 10^3/uL (1.2-3.4); Absolute Monocytes 0.7 10^3/uL (0.1-0.6); Hematocrit 23.4 % (37.0-47.0); Hemoglobin 7.8 g/dL (12.0-16.0); Mean Corp Hgb Conc. 33.3 g/dL (33.0-37.0); Mean Corpuscular Hgb 32.9 pg (27.0-31.0); Mean Corpuscular Volume 98.7 fL (81.0-99.0); Nucleated Red Blood Cells % 0 %; Platelet Count 192 10^3/uL (130-400); Red Blood Cell Count 2.37 10^6/uL (4.20-5.40); Red Cell Dist. Width 14.4 % (11.5-14.5); White Blood Cell Count 6.1 10^3/uL (4.8-10.8)
[2024-09-14 08:31] LABS: ALT (SGPT) 18 U/L (0-35); AST (SGOT) 22 U/L (14-36); Alkaline Phosphatase 73 U/L (38-126); Blood Urea Nitrogen 19 mg/dl (7-17); Calcium 8.7 mg/dl (8.4-10.2); Carbon Dioxide 29 mmol/L (22-30); Chloride 105 mmol/L (98-107); Estimated Creatinine Clearance 48 ml/min; Glucose 95 mg/dl (70-99); Sodium 137 mmol/L (135-145); Total Bilirubin 0.4 mg/dl (0.2-1.3); Total Protein 5.2 g/dl (6.3-8.2); eGFR > 60.00
[2024-09-14] MEDS: LASIX 40 MG PO (09:43)
--- NOTE | 2024-09-14 10:24 | W.PN.HOSP.TC ---
Addendum entered and electronically signed by Jake Noland MD 09/14/24 11:30:
Hematoma exacerbated by Elqiuis
Original Note:
Today's Communication/Plan
-
Hgb dropped - start q6h H&H
Assessment / Plan
Assessment / Plan
83yo F with PMHx Afib, PAD, HLD, atopic d/o, HFpEF came after she fell in [facility] while being there on the trip. No LOC described. Patient said that she just misstepped when waking from the grass onto the pavement. Howevert patient does have
chronic ballance problem and planned for outpatient ballance training. Found large LUE hematoma, underwent evacuation by VascSx on 09/12/24
A/P:
#Acute blood loss anemia, traumatic on NOLAN
CTA: LARGE (20 cm in length) ACUTE SOFT TISSUE HEMATOMA in the posterior left upper arm involving the left triceps muscle and overlying subcutaneous fat extending from the level the left elbow to the proximal-mid left humeral diaphysis, ACUTE ACTIVE
ARTERIAL EXTRAVASATION in the inferomedial aspect of the hematoma
VascSx: s/p hematoma evacuation, hold Eliquis for 72h, cont ASA
Follow H&H
IV Iron
#L2 hemangioma
#DJD
Tylenol
PT/OT
No follow up for the hematoma advised
#Atelectasis
Incentive spirometry
#Thyroid nodules
mid and lower pole of the left lobe of the thyroid gland measuring 1.4 cm and 1.3 cm in size
Outpatient follow up with PCP - patient had Hx of nodules and has US some time ago - discussed in details with patient and she verbalized understanding of the instructions
#Afib, unspecified
cont rate/rhythm control
telemetry
Patient aware of increased stroke risk while holding Eliquis and agreeable with the mgmt
#ASCVD
#PAD
#Atopic D/O
#Chronic HFpEF
cont home meds
DVT ppx SCDs
Full code
I have spent at least 38min reviewing chart, test results, communication with consultants and providing direct patient care
Anticipated Discharge: > 48 hours
Subjective/Interval History
-
Date of Service: September 14, 2024
Objective Data
-
Labs:
Laboratory Results
09/14/24 09/14/24 09/14/24
07:47 15:45 23:45
WBC 6.1
Hgb 7.8 L Pending Pending
Hct 23.4 L Pending Pending
Plt Count 192
Sodium 137
Potassium 4.0
Chloride 105
Carbon Dioxide 29
BUN 19 H
Creatinine 0.8
Glucose 95
Calcium 8.7
Total Bilirubin 0.4
AST 22
ALT 18
Alkaline Phosphatase 73
Vital Signs:
Vital Signs
Temp Pulse Resp BP Pulse Ox
97.6 F 65 16 137/63 98
09/14/24 08:00 09/14/24 09:43 09/14/24 08:00 09/14/24 09:43 09/14/24 08:23
I&O
09/13/24 09/14/24 09/15/24
06:59 06:59 06:59
Intake Total 655 / 655 2340 / 2340
Output Total
Balance 635 / 635 2315 / 2315
Review of Systems
-
History Source: Patient
All other systems: Reviewed and negative
Physical Exam
-
General: No Apparent Distress
Musculoskeletal: Other (LUE with dressing and RELL drain)
Neuro: Awake, Alert, Oriented and AO x 3
Psych: Calm
--- NOTE | 2024-09-14 10:43 | PN.CDI ---
CDI
- -
CDI:
Physician Documentation Request
Admit Date: 09/12/24 16:40
Dear Doctor Ludin,
Clinical Indicators:
Patient admitted with LUE hematoma.
09/12 H & P, 'Patient states she fell backwards to her left side landed on her left hip and elbow. she was walking on the sidewalk, lost balance and fell backwards to the grass. she landed on her left elbow.'
Home medication: Apixaban 5 mg tablet (Eliquis) 5 mg PO BID; held since admission.
Please clarify the likely relationship between the LUE hematoma and Eliquis use.
Yes, LUE hematoma is related to/associated with/exacerbated by Eliquis use.
No, LUE is not related to/associated with/exacerbated by Eliquis use but it is due to trauma only.
Unable to determine
Use of terms such as suspected, likely, concern for, or probable (associated with a specific diagnosis that is being evaluated, monitored, or treated as if it exists) are acceptable and can be coded in the inpatient setting, when documented at the
time of discharge.
Thank you,
Ella Peña RN BSN
CDI Specialist
available via tiger text
Please use your independent medical judgment in providing your response.
--- NOTE | 2024-09-14 11:09 | W.PN.VS ---
Today's Communication / Plan
-
Seen and assessed with Dr Bai
Assessment/Plan
-
Assessment: 83-year-old female POD #2 Evacuation and washout of left upper extremity intramuscular hematoma
Plan:
May resume anticoagulation after 72 hours from surgery
Continue I&O and drain management
Continue as needed pain medication
Encourage incentive spirometry
Subjective Data
-
Date of Service: September 14, 2024
Pt seen at bedside this am with Dr Bai. Pt offers no complaints at this time. States her hand is less swollen then last night. No events overnight.
Objective Data
-
Vital Signs
Temp Pulse Resp BP Pulse Ox
97.6 F 65 16 137/63 98
09/14/24 08:00 09/14/24 09:43 09/14/24 08:00 09/14/24 09:43 09/14/24 08:23
Intake and Output
09/13/24 09/14/24 09/15/24
06:59 06:59 06:59
Intake Total 655 / 655 2340 / 2340
Output Total
Balance 635 / 635 2315 / 2315
Intake:
Oral fluids 480 / 480 2340 / 2340
IV fluids (Total) 175 / 175
NSS 175 / 175
Output:
Drain Output (Total)
Left Upper Arthur-Almonte A
Other:
Number of approximated MODERATE 1 2
amounts of urine
Number of approximated LARGE 1
amounts of urine
Lab Results
09/14/24 07:47
Calcium 8.7 mg/dl (8.4-10.2) 09/14/24 07:47
Total Bilirubin 0.4 mg/dl (0.2-1.3) 09/14/24 07:47
AST 22 U/L (14-36) 09/14/24 07:47
ALT 18 U/L (0-35) 09/14/24 07:47
Alkaline Phosphatase 73 U/L (38-126) 09/14/24 07:47
Total Protein 5.2 g/dl (6.3-8.2) L 09/14/24 07:47
Albumin 3.0 g/dl (3.5-5.0) L 09/14/24 07:47
Physical Exam
-
No apparent distress, resting bed comfortably
No tachycardia
No dyspnea on room air
Left upper extremity with +1 edema, all compartments soft, RELL drain with serosanguineous output, ecchymosis present, left hand warm, left radial pulse +2 palpable
Left upper extremity dressing replaced, florin well approximated
[2024-09-14 12:52] VITALS: BP 125/59; PULSE 68
[2024-09-14] MEDS: FERRLECIT 110 MG IV (14:17)
--- NOTE | 2024-09-14 14:30 | CM ---
Addendum entered by Lacie Ramon RN 09/14/24 15:45:
IMM reviewed.
Original Note:
Reviewed the chart notes and spoke with the patient at the bedside. The patient anticipates being discharged to home with [facility]. RELL drain remains. CM continues to be available to patient/family and is monitoring medical plan for needs
at discharge.
Plan: Discharge to home when medically stable with [facility]. Per patient, her daughter can transport after work.
[facility]
[2024-09-14 15:21] VITALS: BP 162/73
[2024-09-14 17:30] LABS: Hematocrit 25.9 % (37.0-47.0); Hemoglobin 8.5 g/dL (12.0-16.0)
[2024-09-14] MEDS: LIPITOR 40 MG PO (17:40)
[2024-09-14] MEDS: OSCAL 500 + D 500 MG PO (17:40)
[2024-09-14] MEDS: FLORASTOR 250 MG PO (17:41)
[2024-09-14] MEDS: PACERONE 200 MG PO (17:41)
[2024-09-14] MEDS: FOLVITE 0.4 MG PO (17:41)
[2024-09-14] MEDS: CARDIZEM CD 120 MG PO (17:45)
[2024-09-14 19:50] VITALS: BP 155/79
[2024-09-14 20:04] VITALS: BP 155/79
[2024-09-14] MEDS: XANAX 1.5 MG PO (23:00)
[2024-09-14 23:41] VITALS: BP 124/56
[2024-09-15] VITALS (7 sets, daily range): BP systolic 115–149; BP diastolic 53–62; PULSE 57–65; O2SAT 96–97
[2024-09-15 00:10] LABS: Hematocrit 24.3 % (37.0-47.0); Hemoglobin 8.1 g/dL (12.0-16.0)
[2024-09-15 03:47] LABS: % Basophils 0.3 % (0-2); % Eosinophils 6.2 % (0-6); % Immature Granulocytes 0.7 % (0-0.5); % Lymphocytes 15.8 % (20.5-51.1); % Monocytes 11.1 % (1.7-9.3); % Neutrophils 65.9 % (42.2-75.2); Absolute Eosinophils 0.4 10^3/uL (0-0.7); Absolute Immature Granulocytes 0.1 10^3/uL (0-0.05); Absolute Lymphocytes 1.1 10^3/uL (1.2-3.4); Absolute Monocytes 0.8 10^3/uL (0.1-0.6); Absolute Neutrophils 4.5 10^3/uL (1.4-6.5); Hematocrit 23.6 % (37.0-47.0); Mean Corp Hgb Conc. 33.9 g/dL (33.0-37.0); Mean Corpuscular Hgb 32.9 pg (27.0-31.0); Mean Corpuscular Volume 97.1 fL (81.0-99.0); Mean Platelet Volume 9.8 fL (7.4-10.4); Nucleated Red Blood Cells % 0 %; Platelet Count 202 10^3/uL (130-400); Red Blood Cell Count 2.43 10^6/uL (4.20-5.40); Red Cell Dist. Width 14.2 % (11.5-14.5); White Blood Cell Count 6.8 10^3/uL (4.8-10.8)
[2024-09-15] MEDS: VITAMIN B-12 1000 MCG PO (07:52)
[2024-09-15] MEDS: LASIX 40 MG PO (08:18)
[2024-09-15] MEDS: COLACE 100 MG PO ×2 (08:19→20:41)
[2024-09-15] MEDS: ASPIR LOW (ENTERIC COATED) 81 MG PO (08:19)
[2024-09-15] MEDS: LEXAPRO 5 MG PO ×2 (08:19→20:41)
[2024-09-15] MEDS: METAMUCIL, KONSYL 1 PACKET PO (08:19)
--- NOTE | 2024-09-15 09:05 | W.PN.HOSP.TC ---
Addendum entered and electronically signed by Marlee Dyer MD 09/15/24 11:06:
Addendum
d/w vascular, ok to start Eliquis
End
Original Note:
Today's Communication/Plan
-
Will reach out to vascular about Eliquis
IV Iron
PT
Assessment / Plan
Assessment / Plan
Physical Exam
Constitutional: No acute distress and Comfortable
HEENT: Moist mucous membranes
Cardiovascular: S1-S2, systolic murmur absent and Rhythm/rate is irregular
Respiratory: No wheezes
GI: Soft, nontender
: no hematuria
Neuro: AO to self and surroundings, she followed commands
Psych: calm
83yo F with PMHx Afib, PAD, HLD, atopic d/o, HFpEF came after she fell in [facility] while being there on the trip. No LOC described. Patient said that she just misstepped when waking from the grass onto the pavement. However patient does have
chronic balance problem and planned for outpatient balance training. Found large LUE hematoma, underwent evacuation by VascSx on 09/12/24
A/P:
#Acute blood loss anemia, traumatic with NOLAN
CTA: LARGE (20 cm in length) ACUTE SOFT TISSUE HEMATOMA in the posterior left upper arm involving the left triceps muscle and overlying subcutaneous fat extending from the level the left elbow to the proximal-mid left humeral diaphysis, ACUTE ACTIVE
ARTERIAL EXTRAVASATION in the inferomedial aspect of the hematoma
VascSx: s/p hematoma evacuation, hold Eliquis for 72h, cont ASA
Follow H&H
IV Iron
#L2 hemangioma
#DJD
Tylenol
PT/OT
No follow up for the hematoma advised
#Atelectasis
Incentive spirometry
#Thyroid nodules
mid and lower pole of the left lobe of the thyroid gland measuring 1.4 cm and 1.3 cm in size
Outpatient follow up with PCP - patient had Hx of nodules and has US some time ago - discussed in details with patient and she verbalized understanding of the instructions
# Paroxysmal atrial fibrillation
cont rate/rhythm control
telemetry
Patient aware of increased stroke risk while holding Eliquis and agreeable with the mgmt
#ASCVD
#PAD
#Atopic D/O
#Chronic HFpEF
cont home meds
DVT ppx SCDs
Full code
Total time spent to see the patient, examine the patient, review data and lab results, discuss treatment plan with patient and nursing staff around 55 minutes
Anticipated Discharge: Within 24 hours
Subjective/Interval History
-
Date of Service: September 15, 2024
Objective Data
-
Labs:
Laboratory Results
09/15/24 09/15/24 09/15/24
00:03 03:00 03:36
WBC 6.8
Hgb 8.1 L Cancelled 8.0 L
Hct 24.3 L Cancelled 23.6 L
Plt Count 202
Vital Signs:
Vital Signs
Temp Pulse Resp BP Pulse Ox
97.5 F 66 16 137/58 95
09/15/24 07:24 09/15/24 08:18 09/15/24 07:24 09/15/24 08:18 09/15/24 07:24
I&O
09/14/24 09/15/24 09/16/24
06:59 06:59 06:59
Intake Total 2340 / 2340 480 / 480
Output Total
Balance 2315 / 2315 -15 470 / 470
[2024-09-15 11:45] LABS: Hemoglobin 9.1 g/dL (12.0-16.0)
--- NOTE | 2024-09-15 14:05 | CM ---
Met with patient at bedside.
[facility] referral [facility]
Spoke with Cathy from [facility] & updated.
PLAN: Home with [facility] when medically ready
daughter to transport
[facility]
[2024-09-15] MEDS: FERRLECIT 110 MG IV (14:38)
--- NOTE | 2024-09-15 15:14 | W.PN.VS ---
Today's Communication / Plan
-
Discussed with Dr. Bai
Assessment/Plan
-
Assessment: 83-year-old female POD #3 Evacuation and washout of left upper extremity intramuscular hematoma
Plan:
RELL drain removed at bedside, patient tolerated well
Okay for discharge from vascular standpoint, follow-up added to the chart
Subjective Data
-
Date of Service: September 15, 2024
Patient seen at bedside this afternoon. Patient offers no complaints at this time. No events overnight. RELL drain with minimal output
Objective Data
-
Vital Signs
Temp Pulse Resp BP Pulse Ox
97.6 F 65 16 128/53 99
09/15/24 11:03 09/15/24 11:03 09/15/24 11:03 09/15/24 11:03 09/15/24 11:03
Intake and Output
09/14/24 09/15/24 09/16/24
06:59 06:59 06:59
Intake Total 2340 / 2340 1140 / 1140
Output Total
Balance 2315 / 2315 -15 / 15 1130 / 1130
Intake:
Oral fluids 2340 / 2340 1140 / 1140
Output:
Drain Output (Total)
Left Upper [place] A
Other:
Number of approximated MODERATE 2 1
amounts of urine
Number of approximated LARGE 1
amounts of urine
How many times incontinent 3
MODERATE amount urine
Lab Results
09/15/24 11:25
09/14/24 07:47
Calcium 8.7 mg/dl (8.4-10.2) 09/14/24 07:47
Total Bilirubin 0.4 mg/dl (0.2-1.3) 09/14/24 07:47
AST 22 U/L (14-36) 09/14/24 07:47
ALT 18 U/L (0-35) 09/14/24 07:47
Alkaline Phosphatase 73 U/L (38-126) 09/14/24 07:47
Total Protein 5.2 g/dl (6.3-8.2) L 09/14/24 07:47
Albumin 3.0 g/dl (3.5-5.0) L 09/14/24 07:47
Physical Exam
-
No apparent distress, resting bed comfortably
No tachycardia
No dyspnea on room air
Left upper extremity with +1 edema, all compartments soft, RELL drain with serosanguineous output, ecchymosis stable, left hand warm, left radial pulse +2 palpable
Left upper extremity dressing replaced, florin well approximated
--- NOTE | 2024-09-15 16:24 | RR ---
A Rapid Response was called on this patient, please see Rapid Response form.
--- NOTE | 2024-09-15 16:24 | PTCARENOTE ---
S patient brought over from PACU obtunded, Spo2 92 on 4L, verbal response with sternal rub, pt with eyes closed, Bp 82/49, HR 87
B patient admitted post L radial ulnar Fx repair
A see online database
R RN reached out to Dr. Schaffer and made aware of assessment, 500ml blous ordered and tele monitor. RN called patient daughter via phone and did online admission assessment and provided an update on patients current condition.
[2024-09-15] MEDS: CARDIZEM CD 120 MG PO (17:22)
[2024-09-15] MEDS: FLORASTOR 250 MG PO (17:22)
[2024-09-15] MEDS: OSCAL 500 + D 500 MG PO (17:22)
[2024-09-15] MEDS: PACERONE 200 MG PO (17:23)
[2024-09-15] MEDS: LIPITOR 40 MG PO (17:23)
[2024-09-15] MEDS: FOLVITE 0.4 MG PO (17:23)
[2024-09-15] MEDS: ELIQUIS 5 MG PO (20:41)
[2024-09-15] MEDS: XANAX 1.5 MG PO (22:26)
[2024-09-15] MEDS: ULTRAM 25 MG PO (22:31)
[2024-09-16 00:07] VITALS: BP 135/56
[2024-09-16 03:34] VITALS: BP 150/64
[2024-09-16 06:51] LABS: Hematocrit 23.2 % (37.0-47.0); Mean Corp Hgb Conc. 34.5 g/dL (33.0-37.0); Mean Corpuscular Hgb 33.5 pg (27.0-31.0); Mean Corpuscular Volume 97.1 fL (81.0-99.0); Mean Platelet Volume 10.2 fL (7.4-10.4); Platelet Count 226 10^3/uL (130-400); Red Blood Cell Count 2.39 10^6/uL (4.20-5.40); Red Cell Dist. Width 14.1 % (11.5-14.5); White Blood Cell Count 5.6 10^3/uL (4.8-10.8)
[2024-09-16 08:00] VITALS: BP 138/57
[2024-09-16] MEDS: COLACE 100 MG PO (08:03)
[2024-09-16] MEDS: ELIQUIS 5 MG PO (08:03)
[2024-09-16] MEDS: ASPIR LOW (ENTERIC COATED) 81 MG PO (08:03)
[2024-09-16] MEDS: VITAMIN B-12 1000 MCG PO (08:03)
[2024-09-16] MEDS: METAMUCIL, KONSYL 1 PACKET PO (08:03)
[2024-09-16] MEDS: LEXAPRO 5 MG PO (08:03)
[2024-09-16] MEDS: LASIX 40 MG PO (08:07)
--- NOTE | 2024-09-16 09:16 | W.PN.HOSP.TC ---
Today's Communication/Plan
-
Discharge
Assessment / Plan
Assessment / Plan
Physical Exam
Constitutional: No acute distress and Comfortable
HEENT: Moist mucous membranes
Cardiovascular: S1-S2, systolic murmur absent and Rhythm/rate is irregular
Respiratory: No wheezes
GI: Soft, nontender
: no hematuria
Neuro: AO to self and surroundings, she followed commands
Psych: calm
83yo F with PMHx Afib, PAD, HLD, atopic d/o, HFpEF came after she fell in [facility] while being there on the trip. No LOC described. Patient said that she just misstepped when waking from the grass onto the pavement. However patient does have
chronic balance problem and planned for outpatient balance training. Found large LUE hematoma, underwent evacuation by VascSx on 09/12/24
A/P:
#Acute blood loss anemia, traumatic with NOLAN
CTA: LARGE (20 cm in length) ACUTE SOFT TISSUE HEMATOMA in the posterior left upper arm involving the left triceps muscle and overlying subcutaneous fat extending from the level the left elbow to the proximal-mid left humeral diaphysis, ACUTE ACTIVE
ARTERIAL EXTRAVASATION in the inferomedial aspect of the hematoma
VascSx: s/p hematoma evacuation, held Eliquis for 72h, cont ASA
Followed H&H, no major drop, HGB stable 8-9 . Ok to resume Eliquis per vascular.
s/p IV Iron
#L2 hemangioma
#DJD
Tylenol
PT/OT
#Atelectasis
Incentive spirometry, no cough or hypoxia.
#Thyroid nodules
mid and lower pole of the left lobe of the thyroid gland measuring 1.4 cm and 1.3 cm in size
Outpatient follow up with PCP - patient had Hx of nodules and has US some time ago - discussed in details with patient and she verbalized understanding of the instructions
# Paroxysmal atrial fibrillation
cont rate/rhythm control
telemetry
Patient is back on Eliquis.
#ASCVD
#PAD
#Atopic D/O
#Chronic HFpEF
cont home meds
DVT ppx SCDs
Full code
Total discharge time spent to see the patient, examine the patient, review data and lab results, discuss discharge plan with patient and nursing staff around 65 minutes
Anticipated Discharge: Today
Subjective/Interval History
-
Date of Service: September 16, 2024
No chest pain
No abdominal pain
Objective Data
-
Labs:
Laboratory Results
09/16/24
05:46
WBC 5.6
Hgb 8.0 L
Hct 23.2 L
Plt Count 226
Vital Signs:
Vital Signs
Temp Pulse Resp BP Pulse Ox
97.5 F 72 20 135/68 95
09/16/24 08:00 09/16/24 08:07 09/16/24 08:00 09/16/24 08:07 09/16/24 08:00
I&O
09/15/24 09/16/24 09/17/24
06:59 06:59 06:59
Intake Total 2099
Output Total
Balance - / -15 2089
--- NOTE | 2024-09-16 11:34 | CM ---
Patient discharged to home
IMM signed yesterday
Notified Cathy at [facility]
PLAN: Home with [facility]
daughter to transport
[facility]
--- NOTE | 2024-09-16 14:02 | W.DCSUMMARY ---
Discharge Summary
Discharge Data
Date of Admission: 09/12/24
Date of Discharge: 09/16/24
-
Pending Results: No
Hospital Course
83 years old female presented to the emergency room with pain and swelling to the left elbow. Patient had a fall outside the hospital with no head trauma. CAT scan of the left upper extremity showed acute soft tissue hematoma around 20 cm in
length involving the left triceps muscle. Patient was taking Eliquis for history of atrial fibrillation. Patient was evaluated by vascular surgery and underwent evacuation and washout of the left upper extremity intramuscular hematoma by Dr. Andres
on 09/12. No complications reported. She was diagnosed with acute blood loss anemia. No hemodynamic instability. She was given intravenous iron. Hemoglobin stabilized between 8-9. Eliquis was resumed with no major drop in hemoglobin. She
remained hemodynamically stable. She was evaluated by physical therapy and was discharged home with home care services in a stable condition. she had follow-up appointment with vascular surgery.
Discharge Plan
-
Patient Disposition: Home with Home Care
Discharge Diagnosis/Procedures: left upper extremity intramuscular hematoma, you can take oral iron if you tolerates( can cause constipation). You received IV Iron in the hospital.
CAT scan of cervical spine showed incidental mid and lower pole of the left lobe of the thyroid gland measuring 1.4 cm and 1.3 cm in size
Condition: Good
Diet: As tolerated
Stand Alone Forms: DC Instr - Vascular OR
Referrals:
Jesica Cueto PA-C [Specified Professional Personl] - 09/28/24 11:00 am (Vascular surgery office follow-up)
Kadie Goodson MD [Family Provider] - in one to two weeks
Prescriptions:
Continued
alprazolam 1 MG tablet
1.5 mg PO HS
[place]-3 Plus Vitamin D3 1 EACH capsule
1 ea PO BID
acetaminophen 650 mg Tablet Extended Release
1,300 mg PO BIDPRN PRN (Reason: pain)
diltiazem HCl 120 mg Capsule,Extended Release 24 Hr
120 mg PO QPM
Saccharomyces boulardii [Florastor] 250 mg Capsule
250 mg PO QPM
docusate sodium 100 mg capsule
100 mg PO BID
amiodarone 200 mg Tablet
200 mg PO QPM
folic acid 400 mcg Tablet
0.4 mg PO QPM
escitalopram oxalate 5 mg Tablet
5 mg PO BID
Eliquis 5 mg Tablet
5 mg PO BID
Caltrate 600 plus D 600 mg-20 mcg (800 unit) Tablet,Chewable
1 tab PO QPM
atorvastatin 40 mg tablet
40 mg PO QPM Qty: 90 3RF
furosemide [Lasix] 40 mg tablet
40 mg PO DAILY Qty: 90 3RF
nitroglycerin 0.4 mg tablet, sublingual
0.4 mg sublingual [id number] PRN (Reason: chest pain) Qty: 25 2RF
cyanocobalamin (vitamin B-12) 1,000 mcg Tablet
1,000 mcg PO DAILY
fexofenadine 180 mg Tablet
180 mg PO DAILYPRN PRN (Reason: allergies)
famotidine 20 mg Tablet
20 mg PO HSPRN PRN (Reason: if tums ineffective/unavailable)
calcium carbonate [Tums] 200 mg calcium (500 mg) Tablet,Chewable
400 mg PO TIDPRN PRN (Reason: gi issues)
biotin 5 mg Tablet
5 mg PO DAILY
Metamucil 3.4 gram/5.4 gram Powder
2 tsp PO DAILY
aspirin 81 mg tablet,delayed release (DR/EC)
81 mg PO QPM
Discharge Orders:
Discharge Patient (As Directed); Ordered 09/16/24
Ordered By: Marlee Dyer
Discharge Date and Time
Discharge Date/Time: 09/16/24 11:45
Print Language: [id number]
== END 2024-09-16 11:45 | disposition home health service (06) | DRG 580 ==
LOC: 2 SOUTH 16:40
PROVIDERS: Internal Medicine; Nurse Practitioner; Physician Assistant; Registered Nurse; Surgery Vascular Surgery; ADMITTING PHYSICIAN Hospitalist; ATTENDING PHYSICIAN Internal Medicine; EMERGENCY PHYSICIAN Emergency Medicine; FAMILY PHYSICIAN Internal Medicine Geriatric Medicine; OTHER PHYSICIAN Nurse Practitioner Acute Care
PROC: 0KC80ZZ Extirpation of Matter from Left Upper Arm Muscle, Open Approach (ICD-10-PCS; 2024-09-12)
DX: S40.022A Contusion of left upper arm, initial encounter (principal); D62 Acute posthemorrhagic anemia; I50.32 Chronic diastolic (congestive) heart failure; J98.11 Atelectasis; D68.32 Hemorrhagic disorder due to extrinsic circulating anticoagulants; S50.02XA Contusion of left elbow, initial encounter; E78.00 Pure hypercholesterolemia, unspecified; F41.9 Anxiety disorder, unspecified; I48.0 Paroxysmal atrial fibrillation; I73.9 Peripheral vascular disease, unspecified; Z79.01 Long term (current) use of anticoagulants; I11.0 Hypertensive heart disease with heart failure; I25.10 Atherosclerotic heart disease of native coronary artery without angina pectoris; T45.515A Adverse effect of anticoagulants, initial encounter; E04.2 Nontoxic multinodular goiter; D50.9 Iron deficiency anemia, unspecified; W01.0XXA Fall on same level from slipping, tripping and stumbling without subsequent striking against object, initial encounter; Y92.480 Sidewalk as the place of occurrence of the external cause
CPT/HCPCS: 10140; 70450; 71046; 72125; 73060; 73080; 73206; 73502; 80048; 80053; 82607; 82728; 82746; 83540; 83550; 85014; 85018; 85025; 85027; 85610; 85730; 96374; 97116; 97162; 97166; 97530; 97535; 99285; J2916; Q9967

== ENCOUNTER 2024-09-18 17:23 | Emergency (ER) | payer OTHER, SELFPAY ==
[2024-09-18 17:26] VITALS: BP 157/77
--- NOTE | 2024-09-18 23:31 | ED.GENMED ---
History of Present Illness
General
Chief Complaint: Skin Problem
Source: patient and family
Exam Limitations: none
Time Seen by Provider: 09/18/24 19:12
Nursing documentation reviewed up to this point in time: agreed with
History of Present Illness
History of Present Illness:
Patient to ED for eval of bleeding from left arm. SHe was recently seen by vascular for large traumatic hematoma to her left arm. SHe states a drain was placed 1 week ago, removed on thursday. She has had no futher issues until tonight when she
noted bleeding from site. Brought to ED by family for eval. No active bleeding on arrival to ED.
Past History
Past History
ED Past Medical History: Cancer, HTN, Hypercholesterolemia and Other
ED Past Surgical History: Appendectomy, Bowel resection and Other (Ovarian cyst removal, 'colon' surgery)
Social History
Tobacco: Non-smoker
Alcohol: Occasional
Drug: None
Personal:
Living: with family
Review of Systems
Review of Systems
Allergies reviewed?: Yes
All Other Systems: ROS reviewed and negative except as documented in HPI and ROS
Constitutional: Reports no symptoms
Musculoskeletal: Reports no symptoms
Skin: Reports other (large area of bruising to left arm. No bleeding from site of discontinued drain. No evidence of infection.)
Neurological: Reports no symptoms
Psychiatric: Reports no symptoms
Phy Exam
General Physical Exam
General Presentation: well appearing and no apparent distress
General age: appears stated age
General Skin: warm and dry
General Habitus: normal
General Mental: alert
General Hydration: appears well hydrated
Musculoskeletal Exam
Musculoskeletal Exam: full ROM and neuro vasc intact
Skin Exam
Skin Exam: other (Old bruising noted to left arm. SIte of discontinued drain clean and dry. No active bleeding. No evidence of infection. SIte cleanesd with NSS and dressed with dsd and ken wrap. )
Psychiatric Exam
Psychiatric Exam: normal mood/affect
Course
Vital Signs
Initial and Last Documented VS:
Initial Vital Signs
Temp Pulse Resp BP Pulse Ox
98.8 F 94 18 157/77 98
09/18/24 17:26 09/18/24 17:26 09/18/24 17:26 09/18/24 17:26 09/18/24 17:26
Last Documented Vital Signs
Temp Pulse Resp BP Pulse Ox
98.8 F 94 18 157/77 98
09/18/24 17:26 09/18/24 17:26 09/18/24 17:26 09/18/24 17:26 09/18/24 17:26
*Critical Care Note
Total Time (30-74mins, 75-104mins- exclusive of procedures): Not Applicable
Update Note
Update Note:
No active bleeding on exam. SIte dressed with DSD and ken wrap. WIll discharge home and she will follow up with vascular tomorrow. Given instructions on s/s to return to ED and she is agreeable to plan.
ED Attending Note
-
Portions of this chart may have been created with voice recognition software.� Occasional wrong word or��sound alike� substitutions may have occurred due to the inherent limitations of voice recognition software.
Discharge Plan
Departure
Patient Disposition: Home (Routine Discharge)
Date of Disposition: 09/18/24
Time of Disposition: 20:02
Patient with high blood pressure during this ER visit?: No
Condition: Good
Covid-19: Not Applicable
Discharge Problem:
Encounter for wound re-check
Instructions: Hematoma
Prescriptions:
No Action
alprazolam 1 MG tablet
1.5 mg PO HS
[place]-3 Plus Vitamin D3 1 EACH capsule
1 ea PO BID
acetaminophen 650 mg Tablet Extended Release
1,300 mg PO BIDPRN PRN (Reason: pain)
diltiazem HCl 120 mg Capsule,Extended Release 24 Hr
120 mg PO QPM
Saccharomyces boulardii [Florastor] 250 mg Capsule
250 mg PO QPM
docusate sodium 100 mg capsule
100 mg PO BID
amiodarone 200 mg Tablet
200 mg PO QPM
folic acid 400 mcg Tablet
0.4 mg PO QPM
escitalopram oxalate 5 mg Tablet
5 mg PO BID
Eliquis 5 mg Tablet
5 mg PO BID
Caltrate 600 plus D 600 mg-20 mcg (800 unit) Tablet,Chewable
1 tab PO QPM
atorvastatin 40 mg tablet
40 mg PO QPM Qty: 90 3RF
furosemide [Lasix] 40 mg tablet
40 mg PO DAILY Qty: 90 3RF
nitroglycerin 0.4 mg tablet, sublingual
0.4 mg sublingual [id number] PRN (Reason: chest pain) Qty: 25 2RF
cyanocobalamin (vitamin B-12) 1,000 mcg Tablet
1,000 mcg PO DAILY
fexofenadine 180 mg Tablet
180 mg PO DAILYPRN PRN (Reason: allergies)
famotidine 20 mg Tablet
20 mg PO HSPRN PRN (Reason: if tums ineffective/unavailable)
calcium carbonate [Tums] 200 mg calcium (500 mg) Tablet,Chewable
400 mg PO TIDPRN PRN (Reason: gi issues)
biotin 5 mg Tablet
5 mg PO DAILY
Metamucil 3.4 gram/5.4 gram Powder
2 tsp PO DAILY
aspirin 81 mg tablet,delayed release (DR/EC)
81 mg PO QPM
Referrals:
Brendan Andres III, MD [Active] - Tomorrow
Kadie Goodson MD [Family Provider] -
Interventions
Interventions:
*Risk Screen - Suicide Last Done: 09/18/24 17:28
*General Assessment Last Done: 09/18/24 17:28
*Neglect/Abuse Screening Last Done: 09/18/24 17:28
*ED COVID-19 Vaccine History Last Done: 09/18/24 17:28
*Nursing Disposition Last Done: 09/18/24 20:21
ED-Skin Assessment Last Done: 09/18/24 19:30
Discharge Date and Time
Discharge Date/Time: 09/18/24 20:22
Print Language: ALGERIAN
== END 2024-09-18 20:22 | disposition home or self-care (01) ==
LOC: EMR 17:23
PROVIDERS: EMERGENCY PHYSICIAN Emergency Medicine; FAMILY PHYSICIAN Internal Medicine Geriatric Medicine
DX: S40.022D Contusion of left upper arm, subsequent encounter (principal); X58.XXXD Exposure to other specified factors, subsequent encounter; Z48.00 Encounter for change or removal of nonsurgical wound dressing; E78.00 Pure hypercholesterolemia, unspecified; I10 Essential (primary) hypertension; Z90.49 Acquired absence of other specified parts of digestive tract
CPT/HCPCS: 99282

== ENCOUNTER 2024-09-19 18:25 | Observation (INO) | payer OTHER, SELFPAY ==
[2024-09-19 12:51] VITALS: BP 128/68
--- NOTE | 2024-09-19 15:18 | ED.GENMED ---
History of Present Illness
General
Chief Complaint: Skin Problem
Source: patient
Exam Limitations: none
Time Seen by Provider: 09/19/24 15:02
History of Present Illness
History of Present Illness:
See MDM
Past History
Past History
ED Past Medical History: Cancer, HTN, Hypercholesterolemia and Other
ED Past Surgical History: Appendectomy, Bowel resection and Other (Ovarian cyst removal, 'colon' surgery)
Social History
Tobacco: Non-smoker
Alcohol: Occasional
Drug: None
Personal:
Living: with family
Phy Exam
Physical Exam
Physical Exam:
See MDM
Course
Orders/Labs/Results
Orders:
Orders
09/19/24 15:15
CT Angio Upper Ext W/Wo Iv Contrast [CT Upper Ext Angio W/wo Iv Con] Urgent
Comment:
Reason For Exam: persistent bleeding from left arm
09/19/24 15:27
Complete Blood Count/With Diff Urgent
Comprehensive Metabolic Panel Urgent
PTT Urgent
Prothrombin Time Urgent
09/19/24 17:28
Vascular Surgery Consult Urgent
Consulting Provider: Ezio Bai
Was physician already notified: Yes
Abnormal Lab Results
09/19/24
15:27
RBC 2.93 L 10^6/uL
(4.20-5.40)
Hgb 9.5 L g/dL
(12.0-16.0)
Hct 29.1 L %
(37.0-47.0)
MCV 99.3 H fL
(81.0-99.0)
MCH 32.4 H pg
(27.0-31.0)
MCHC 32.6 L g/dL
(33.0-37.0)
RDW 15.1 H %
(11.5-14.5)
Abs Immat Gran (auto) 0.1 H 10^3/uL
(0-0.05)
Absolute Lymphs (auto) 0.7 L 10^3/uL
(1.2-3.4)
Immature Gran % 0.9 H %
(0-0.5)
Lymphocytes % 12.3 L %
(20.5-51.1)
Monocytes % 10.9 H %
(1.7-9.3)
PT 15.4 H Sec
(11.4-14.6)
APTT 38.6 H Sec
(23.4-35.0)
Glucose 111 H mg/dl
(70-99)
09/19/24 15:27
09/19/24 15:27
Vital Signs
Initial and Last Documented VS:
Initial Vital Signs
Temp Pulse Resp BP Pulse Ox
98.3 F 65 20 128/68 96
09/19/24 12:51 09/19/24 12:51 09/19/24 12:51 09/19/24 12:51 09/19/24 12:51
Last Documented Vital Signs
Temp Pulse Resp BP Pulse Ox
98.3 F 65 20 128/68 96
09/19/24 12:51 09/19/24 12:51 09/19/24 12:51 09/19/24 12:51 09/19/24 12:51
MDM/Problems Addressed
Differential Diagnosis Includes:
HPI and MDM Narrative:
84-year-old female presenting per request of vascular surgeon for CT of her left arm. Patient had a recent fall where she required drainage of a traumatic hematoma to her left arm. [place] were placed and a RELL drain was placed. The drain has
since been removed and she has persistent oozing of blood from the drain site. Patient initially restarted Eliquis but held it today. When I removed the bandage from her left arm, there is some oozing from the RELL drain site. Patient does
acknowledge that this is much better than it had been. I did touch base with vascular surgery who requested CT angiogram of the arm
Physical exam
General: Well appearing and non-toxic
HEENT: protecting airway
Neck: appears supple
CV: No evidence of cyanosis
Resp: No accessory muscle use
Abd: Non-distended
Extremities: [place] in place to well-healing surgical incision to left arm. Mild oozing of blood to RELL drain site
Neuro: alert
Psych: Normal affect
Skin: Intact
Problems Addressed including Acute and Chronic Conditions affecting care:
1. Persistent left arm bleeding
Acuity: acute
Prognosis: stable
Details: Will obtain CTA per vascular
Updates
CT shows likely venous bleed. Given this is her second ED visit, vascular surgery did evaluate and recommending admitting to evaluate any worsening bleeding
Differential Diagnosis (but not limited to): Traumatic hematoma, persistent postsurgical bleeding
Testing considered: Type and screen
Drug therapy (if applicable): OTC meds, please see d/c instruction regarding Rx drugs
Amount and/or Complexity of Data Reviewed
Clinical info obtained from: Patient
External data reviewed: Recent left arm traumatic hematoma excision and drainage
Labs I independently reviewed (but not limited to): Anemia stable
Radiology: The CT scan was personally and independently reviewed. In addition, official CT report reviewed.
Pulse Ox: not hypoxic
EKG independently reviewed: N/A
Kindergarten Assistant: N/A
Critical Care: N/A
Risk of Complication:
Social Determinants of health: Good social support
Discussed with other providers: Vascular surgeon, hospitalist
Escalation of Care includes Admit/Obs: Given the persistent bleeding, will admit
Occasional wrong word or 'sound a like' substitutions may have occurred due to the inherent limitations of voice recognition software. Read the chart carefully and recognize, using context, where substitutions have occurred.
*Critical Care Note
Total Time (30-74mins, 75-104mins- exclusive of procedures): Not Applicable
ED Attending Note
-
Portions of this chart may have been created with voice recognition software.� Occasional wrong word or��sound alike� substitutions may have occurred due to the inherent limitations of voice recognition software.
Discharge Plan
Departure
Patient Disposition: Admit
Date of Disposition: 09/19/24
Time of Disposition: 17:29
Admit to: Med/Surg
Presentation/result/management discussed w/ accepting MD/DO: Hospitalist
Discharge Problem:
Post-op bleeding
Prescriptions:
No Action
alprazolam 1 MG tablet
1.5 mg PO HS
[place]-3 Plus Vitamin D3 1 EACH capsule
1 ea PO BID
acetaminophen 650 mg Tablet Extended Release
1,300 mg PO BIDPRN PRN (Reason: pain)
diltiazem HCl 120 mg Capsule,Extended Release 24 Hr
120 mg PO QPM
Saccharomyces boulardii [Florastor] 250 mg Capsule
250 mg PO QPM
docusate sodium 100 mg capsule
100 mg PO BID
amiodarone 200 mg Tablet
200 mg PO QPM
folic acid 400 mcg Tablet
0.4 mg PO QPM
escitalopram oxalate 5 mg Tablet
5 mg PO BID
Eliquis 5 mg Tablet
5 mg PO BID
Caltrate 600 plus D 600 mg-20 mcg (800 unit) Tablet,Chewable
1 tab PO QPM
atorvastatin 40 mg tablet
40 mg PO QPM Qty: 90 3RF
furosemide [Lasix] 40 mg tablet
40 mg PO DAILY Qty: 90 3RF
nitroglycerin 0.4 mg tablet, sublingual
0.4 mg sublingual [id number] PRN (Reason: chest pain) Qty: 25 2RF
cyanocobalamin (vitamin B-12) 1,000 mcg Tablet
1,000 mcg PO DAILY
fexofenadine 180 mg Tablet
180 mg PO DAILYPRN PRN (Reason: allergies)
famotidine 20 mg Tablet
20 mg PO HSPRN PRN (Reason: if tums ineffective/unavailable)
calcium carbonate [Tums] 200 mg calcium (500 mg) Tablet,Chewable
400 mg PO TIDPRN PRN (Reason: gi issues)
biotin 5 mg Tablet
5 mg PO DAILY
Metamucil 3.4 gram/5.4 gram Powder
2 tsp PO DAILY
aspirin 81 mg tablet,delayed release (DR/EC)
81 mg PO QPM
Referrals:
Kadie Goodson MD [Family Provider] -
Interventions
Interventions:
*Risk Screen - Suicide Last Done: 09/19/24 12:51
*General Assessment Last Done: 09/19/24 12:51
Discharge Date and Time
Print Language: VINCENTIAN
[2024-09-19 15:41] LABS: % Basophils 0.2 % (0-2); % Eosinophils 4.2 % (0-6); % Immature Granulocytes 0.9 % (0-0.5); % Lymphocytes 12.3 % (20.5-51.1); % Monocytes 10.9 % (1.7-9.3); % Neutrophils 71.5 % (42.2-75.2); Absolute Eosinophils 0.2 10^3/uL (0-0.7); Absolute Immature Granulocytes 0.1 10^3/uL (0-0.05); Absolute Lymphocytes 0.7 10^3/uL (1.2-3.4); Absolute Monocytes 0.6 10^3/uL (0.1-0.6); Absolute Neutrophils 4.1 10^3/uL (1.4-6.5); Hematocrit 29.1 % (37.0-47.0); Hemoglobin 9.5 g/dL (12.0-16.0); Mean Corp Hgb Conc. 32.6 g/dL (33.0-37.0); Mean Corpuscular Hgb 32.4 pg (27.0-31.0); Mean Corpuscular Volume 99.3 fL (81.0-99.0); Mean Platelet Volume 9.1 fL (7.4-10.4); Nucleated Red Blood Cells % 0 %; Platelet Count 315 10^3/uL (130-400); Red Blood Cell Count 2.93 10^6/uL (4.20-5.40); Red Cell Dist. Width 15.1 % (11.5-14.5); White Blood Cell Count 5.8 10^3/uL (4.8-10.8)
--- NOTE | 2024-09-19 15:42 | CON.VAS ---
Addendum entered and electronically signed by Ezio Bai MD 09/19/24 15:54:
Seen and examined with MEDICAL OFFICE CLERK Yuliana. Agree with findings as noted below. We saw her in the emergency room. She presented secondary to drainage from her prior RELL insertion site. Noted bloody drainage and was concerned. She notes mild swelling in
her forearm and hand that was new as well. Remainder of history as noted below. On exam/her upper arm and forearm are quite soft. There is ecchymosis scattered throughout. The incision is clean dry and intact in the upper arm. The RELL site has
some dark bloody drainage. Appears like old liquefied hematoma type blood. No fluctuance or fullness deep. Compartments are all soft. Hand is warm with palpable radial pulse. Plan/obtain CTA to rule out any new collection or bleeding, but this
seems very unlikely to me. Likely old old hematoma. Will likely just need dressing changes as a saturate and compression with Dani bandage. However will obtain CTA to be sure. Discussed with emergency room staff.
Original Note:
Consultation
Consultation Request
Performing Provider: Richardson
Reason for Consultation: LUE RELL site draining
Medical History
-
Chief Complaint: LUE RELL site draining
History of Present Illness:
84 yo female with past medical history of A-fib on Eliquis, hypertension, hypercholesterolemia, PAD (procedures listed below), recently here for LUE hematoma after a fall. Pt was taken to OR for LUE hematoma evacuation on 09/12/[address] Andres. Pt
was discharged this past Thursday after RELL drain removal. Pt returned to ER today for increased hand swelling and drainage from RELL site.
Pt seen at bedside in the ER with Dr Bai this afternoon. Arm was unwrapped and a mild amount of dark blood drained from the RELL site. Appears to be old blood. Hand is no longer swollen. Site was rewrapped at bedside by Dr Bai.
Vascular procedure history:
06/10/2021: Left common femoral endarterectomy
07/02/2021: Exploration of left groin wound with drainage of seroma, debridement, vancomycin irrigation, muscle flap
01/05/2024: Right common femoral endarterectomy, IVF right SFA, drug-coated balloon right SFA
09/12/24: LUE hematoma evacuation
Past Medical History
Past Medical History: Other (Cancer, hypertension, hypercholesterolemia, PAD)
Past Surgical History: Appendectomy, Bowel Resection and Other (See above)
Social History
Tobacco: Non-Smoker
Alcohol: Occasional
Drug: None
Personal:
Living: With Family
Family History
Family History: Reviewed & Not Pertinent
Allergies / Home Medications
Allergy/AdvReac Type Severity Reaction Status Date / Time
adhesive tape Allergy Rash Verified 09/19/24 12:56
gluten Allergy Constipation/ Verified 09/19/24 12:56
Abdominal
pain/
Headache
NSAIDS (Non-Steroidal Allergy Oral ulcers Verified 09/19/24 12:56
Anti-Inflamma
oxycodone Allergy Severe Verified 09/19/24 12:56
constipation
Sulfa (Sulfonamide Allergy Diarrhea/Abdominal Verified 09/19/24 12:56
Antibiotics) pain
�Medication �Instructions �Recorded �Confirmed �Type
alprazolam 1 mg tablet 1.5 mg PO HS Mental Health/Anxiety 07/15/09 09/12/24 History
omega-3 650 mg-dha 400 mg-epa 200 1 ea PO BID Supplement 06/18/21 09/12/24 History
mg-fish oil-vit D3 300 unit
capsule ([place]-3 Plus Vitamin D3)
Saccharomyces boulardii 250 mg 250 mg PO QPM Supplement 12/25/23 09/12/24 History
capsule (Florastor)
acetaminophen 650 mg 1,300 mg PO BIDPRN PRN pain 12/25/23 09/12/24 History
tablet,extended release
diltiazem HCl 120 mg capsule,24 120 mg PO QPM Heart 12/25/23 09/12/24 History
hr,extended release Disease/Condition
docusate sodium 100 mg capsule 100 mg PO BID STOOL SOFTENER 12/25/23 09/12/24 History
amiodarone 200 mg tablet 200 mg PO QPM Heart 04/08/24 09/12/24 History
Disease/Condition
apixaban 5 mg tablet (Eliquis) 5 mg PO BID Anti-Inflammatory 04/08/24 09/12/24 History
atorvastatin 40 mg tablet 40 mg PO QPM #90 tabs 04/08/24 09/12/24 Rx
calcium 600 mg (as carbonate)-vit 1 tab PO QPM Supplement 04/08/24 09/12/24 History
D3 20 mcg (800 unit) chewable
tablet (Caltrate plus D)
escitalopram oxalate 5 mg tablet 5 mg PO BID Depression 04/08/24 09/12/24 History
folic acid 400 mcg tablet 0.4 mg PO QPM Supplement 04/08/24 09/12/24 History
furosemide 40 mg tablet (Lasix) 40 mg PO DAILY #90 tabs 04/08/24 09/12/24 Rx
nitroglycerin 0.4 mg sublingual 0.4 mg sublingual [id number] PRN 04/08/24 09/12/24 Rx
tablet chest pain #25 tabs
aspirin 81 mg tablet,delayed 81 mg PO QPM Blood Clot 09/12/24 09/12/24 History
release Prevention/Tx
biotin 5 mg tablet 5 mg PO DAILY Supplement 09/12/24 09/12/24 History
calcium carbonate (Tums) 400 mg PO TIDPRN PRN gi issues 09/12/24 09/12/24 History
cyanocobalamin (vitamin B-12) 1,000 mcg PO DAILY Supplement 09/12/24 09/12/24 History
1,000 mcg tablet
famotidine 20 mg tablet 20 mg PO HSPRN PRN if tums 09/12/24 09/12/24 History
ineffective/unavailable
fexofenadine 180 mg tablet 180 mg PO DAILYPRN PRN allergies 09/12/24 09/12/24 History
psyllium husk 3.4 gram/5.4 gram 2 tsp PO DAILY Gastrointestinal 09/12/24 09/12/24 History
oral powder (Metamucil) Issue
Review of Systems
-
History Source: Patient and Family
Constitutional: Reports No Symptoms
EENT: Reports No Symptoms
Respiratory: Reports No Symptoms
Cardiac: Reports No Symptoms
Vascular: Denies Leg Pain / Claudication
Abdomen/GI: Reports No Symptoms
: Reports No Symptoms
Musculoskeletal: Reports Edema
Skin: Reports Other (drainage from RELL site)
Neurological: Reports No Symptoms
Physical Exam
Vital Signs
Temp Pulse Resp BP Pulse Ox
98.3 F 65 20 128/68 96
09/19/24 12:51 09/19/24 12:51 09/19/24 12:51 09/19/24 12:51 09/19/24 12:51
Lab Results
09/19/24 15:27
Physical Exam
General: No Apparent Distress
HEENT: Normocephalic and Atraumatic
Respiratory: Non Labored Respirations
Cardiac: Negative JVD
GI: Soft and Non Tender
Musculoskeletal: No Clubbing, No Cyanosis and Edema (trace to LUE)
Skin: Warm and Other ([place] c/d/i, RELL site draining old blood)
Neuro: Awake, Alert and Oriented
Psych: Calm
Assessment / Plan
-
84 yo female s/p LUE arm hematoma evacuation on 09/12/[address] Andres, discharged last Thursday. Here today for swelling to the left hand and drainage noted from old RELL site
Plan:
-CTA LUE to r/o active bleed
-Seen and assessed with Dr Bai
Data Reviewed
-
Labs: Labs Reviewed by me
[2024-09-19 15:48] LABS: INR 1.18; PT 15.4 Sec (11.4-14.6)
[2024-09-19 15:49] LABS: APTT 38.6 Sec (23.4-35.0)
[2024-09-19 15:51] LABS: ALT (SGPT) 21 U/L (0-35); AST (SGOT) 26 U/L (14-36); Albumin 4.4 g/dl (3.5-5.0); Alkaline Phosphatase 96 U/L (38-126); Blood Urea Nitrogen 17 mg/dl (7-17); Calcium 9.7 mg/dl (8.4-10.2); Carbon Dioxide 29 mmol/L (22-30); Chloride 103 mmol/L (98-107); Glucose 111 mg/dl (70-99); Sodium 138 mmol/L (135-145); Total Bilirubin 1.1 mg/dl (0.2-1.3); eGFR 54.87
--- NOTE | 2024-09-19 17:42 | HPS.HSE ---
Family Physician
-
Family Physician: Kadie Goodson
Chief Complaint
-
bleeding heamatoma
History of Present Illness
84 yo female with past medical history of A-fib on Eliquis, hypertension, hypercholesterolemia, PAD, recently here for LUE hematoma after a fall. Pt was taken to OR for LUE hematoma evacuation on 09/12/[address] Andres. Pt was discharged this past
Thursday after RELL drain removal. she was noted to have bleeding since Thursday again. she was evaluated in the ER last night and was sent home because there was no active bleeding. today she was evaluated by PCP and sent it to evaluate the bleeding.
denied LUNDY, dizzy or syncope. denied fever, chills,chest pain,sob. denied abdominal pain,n,v,d. denied dysuria or hematuria.
noted ecchymosis scattered throughout. her dressing was unwrapped by surgery and noted old dark blood at the RELL site. she was rewrapped at bedside. admitting for further managment.
Medical History
Past Medical History
Past Medical History: Reports Other
Additional Past Medical History:
Paroxysmal A-fib
Osteopenia
Peripheral artery occlusive disease
CLL
PVD
Anxiety
Renal artery stenosis
Fibromyalgia
Hyperlipidemia
Depression goiter
Past Surgical History: Reports Other
Additional Past Surgical History:
Volvulus surgical repair
Appendectomy
Cataract surgery
Thumb swallowing surgery
Laparotomy ovarian cystectomy
Hysteroscopy
The left groin wound with drainage of seroma
Social History
Tobacco: Non-smoker
Alcohol: Occasional
Drug: None
Family History
Family History: Not pertinent
Allergies / Home Medications
Allergies reflects when Allergies were last updated in [employer].
Home Medications with original date entered in [employer]
Allergy/Medication List:
Allergies
Allergy/AdvReac Type Severity Reaction Status Date / Time
adhesive tape Allergy Rash Verified 09/19/24 12:56
gluten Allergy Constipation/ Verified 09/19/24 12:56
Abdominal
pain/
Headache
NSAIDS (Non-Steroidal Allergy Oral ulcers Verified 09/19/24 12:56
Anti-Inflamma
oxycodone Allergy Severe Verified 09/19/24 12:56
constipation
Sulfa (Sulfonamide Allergy Diarrhea/Abdominal Verified 09/19/24 12:56
Antibiotics) pain
Home Medications
alprazolam 1 mg tablet 1.5 mg PO HS Mental Health/Anxiety 07/15/09
omega-3 650 mg-dha 400 mg-epa 200 mg-fish oil-vit D3 300 unit capsule ([place]-3 Plus Vitamin D3) 1 ea PO BID Supplement 06/18/21
Saccharomyces boulardii 250 mg capsule (Florastor) 250 mg PO QPM Supplement 12/25/23
acetaminophen 650 mg tablet,extended release 1,300 mg PO BIDPRN PRN pain 12/25/23
diltiazem HCl 120 mg capsule,24 hr,extended release 120 mg PO QPM Heart Disease/Condition 12/25/23
docusate sodium 100 mg capsule 100 mg PO BID STOOL SOFTENER 12/25/23
amiodarone 200 mg tablet 200 mg PO QPM Heart Disease/Condition 04/08/24
apixaban 5 mg tablet (Eliquis) 5 mg PO BID Anti-Inflammatory 04/08/24
atorvastatin 40 mg tablet 40 mg PO QPM #90 tabs 04/08/24
calcium 600 mg (as carbonate)-vit D3 20 mcg (800 unit) chewable tablet (Caltrate plus D) 1 tab PO QPM Supplement 04/08/24
escitalopram oxalate 5 mg tablet 5 mg PO BID Depression 04/08/24
folic acid 400 mcg tablet 0.4 mg PO QPM Supplement 04/08/24
furosemide 40 mg tablet (Lasix) 40 mg PO DAILY #90 tabs 04/08/24
nitroglycerin 0.4 mg sublingual tablet 0.4 mg sublingual [id number] PRN chest pain #25 tabs 04/08/24
aspirin 81 mg tablet,delayed release 81 mg PO QPM Blood Clot Prevention/Tx 09/12/24
biotin 5 mg tablet 5 mg PO DAILY Supplement 09/12/24
calcium carbonate (Tums) 400 mg PO TIDPRN PRN gi issues 09/12/24
cyanocobalamin (vitamin B-12) 1,000 mcg tablet 1,000 mcg PO DAILY Supplement 09/12/24
famotidine 20 mg tablet 20 mg PO HSPRN PRN if tums ineffective/unavailable 09/12/24
fexofenadine 180 mg tablet 180 mg PO DAILYPRN PRN allergies 09/12/24
psyllium husk 3.4 gram/5.4 gram oral powder (Metamucil) 2 tsp PO DAILY Gastrointestinal Issue 09/12/24
Review of Systems
-
Constitutional: Reports No Symptoms
EENT: Reports No Symptoms
Respiratory: Reports No Symptoms
Cardiac: Reports No Symptoms
Abdomen/GI: Reports No Symptoms
: Reports No Symptoms
Musculoskeletal: Reports No Symptoms
Skin: Reports Other (left UA hematoma dressing, scattered echymosis)
Neurological: Reports No Symptoms
Endocrine: Reports No Symptoms
Hematologic/Lymphatic: Reports No Symptoms
Psych: Reports No Symptoms
Physical Exam
Vital Signs
Vital Signs
Temp Pulse Resp BP Pulse Ox
98.3 F 65 20 128/68 96
09/19/24 12:51 09/19/24 12:51 09/19/24 12:51 09/19/24 12:51 09/19/24 12:51
Physical Exam
General: Well Developed, Well Nourished and No Apparent Distress
HEENT: NormoCephalic, Moist mucous membranes and Atraumatic
Respiratory: Clear
Cardiac: S1/S2 and Regular Rhythm; No Murmur or Rub
GI: Soft, Non Tender, Non Distended and Normal Bowel Sounds; No Organomegaly
Rectal: Deferred by Provider
Musculoskeletal: No Clubbing, No Cyanosis and No Edema
Skin: Rash and Other (scattered echymosis, dressing in place)
Neuro: AO x 3 and Nonfocal/grossly intact
Psych: Calm
Laboratory Results
-
09/19/24 15:27
09/19/24 15:27
Laboratory Results
PT 15.4 Sec (11.4-14.6) H 09/19/24 15:27
INR 1.18 09/19/24 15:27
APTT 38.6 Sec (23.4-35.0) H 09/19/24 15:27
Total Bilirubin 1.1 mg/dl (0.2-1.3) 09/19/24 15:27
AST 26 U/L (14-36) 09/19/24 15:27
ALT 21 U/L (0-35) 09/19/24 15:27
Alkaline Phosphatase 96 U/L (38-126) 09/19/24 15:27
Data Reviewed
-
CT Scan: Report Reviewed by me
Lab Data: Labs Reviewed by me
Impression/Plan
-
#bleeding from left arm/hematoma/ RELL drain site.
-Hematoma evacuated by vascular surgery 09/12
-CTA shows decreased size of the collection along the posterior aspect of the triceps with new small foci of internal gas which are likely postoperative. There is a small hyperdensity along the inferior medial aspect of the collection which does not
appear to extend from a vessel and is felt unlikely to represent active arterial blush. There is a questionable small focus of extravasation along the posterior lateral aspect of the collection inferiorly, adjacent to the olecranon, which appears to
be extend from a vein and may represent a small venous bleed
-Vascular consult
-Vascular recommended to hold Eliquis
# Anemia of chronic disease
-Hemoglobin stable at 9.5
-Continue to trend
#Thyroid nodules
-Outpatient follow up with PCP
# Paroxysmal atrial fibrillation
-Diltiazem continued
-Amiodarone continue
# Depression/anxiety
= Xanax continued
-Citalopram continued
#ASCVD
#PAD
#Atopic D/O
#Chronic HFpEF
-Statin, Lasix, aspirin continued
DVT ppx SCDs
Full code
--- NOTE | 2024-09-19 18:40 | W.PN.UPDATE ---
Update Note
Progress Note Update
This note serves as an addendum to the H&P by foot setter CARON Kiya BROUSSARD
HPI
84F HX A-fib on Eliquis, hypertension, hypercholesterolemia, PAD, recently here for LUE hematoma after a fall.
S/P OR for LUE hematoma evacuation on 09/12/[address] Andres. Pt was discharged this past Thursday after RELL drain removal. Reported bleeding since Thursday again, she was evaluated in the ER last night and was sent home because there was no active
bleeding. Bleeding persist seen by PCP and sent it to evaluate the bleeding.
PHX; see above
Vital Signs
Temp Pulse Resp BP Pulse Ox
98.3 F 65 20 128/68 96
09/19/24 12:51 09/19/24 12:51 09/19/24 12:51 09/19/24 12:51 09/19/24 12:51
PE
Gen: NAD
HEENT: moist OM
Neck: supple
Lungs: CTA
Cor: RRR S1 S2
Abdomen: Soft, Non Tender, Non Distended and Normal Bowel Sounds
TELECOMMUNICATIONS EQUIPMENT INSTALLER: AAO3
MS: no edema
Psych: calm
Lab
09/14/24 09/16/24 09/19/24
07:47 05:46 15:27
Hgb 8.0 L 9.5 L
Creatinine 0.8 1.0
eGFR > 60.00 54.87
09/18/24 CT Upper Ext Angio W/wo Iv Con
- decreased size of the collection along the posterior aspect of the triceps with new small foci of internal gas which are likely postoperative.
- There is a small hyperdensity along the inferior medial aspect of the collection which does not appear to extend from a vessel and is felt unlikely to represent active arterial blush.
- There is a questionable small focus of extravasation along the posterior lateral aspect of the collection inferiorly, adjacent to the olecranon, which appears to be extend from a vein and may represent a small venous bleed.
- There are peripherally calcified nodules within left hemithyroid measuring up to 1.6 cm. Recommend dedicated nonemergent thyroid ultrasound for further evaluation if not previously evaluated.
Last hospitalist admission:
ASSESSMENT & PLAN
Bleeding from left arm hematoma evacuate and RELL drain site.
- CT suggest decreased size of the collection along the posterior aspect of the triceps
- Hematoma evacuated by vascular surgery 09/12
- Hold Eliquis
- Vascular consulted
Anemia of chronic disease
- Hgb stable at 9.5
- Observe Hgb
Thyroid nodules
- Outpatient follow up with PCP
Paroxysmal AF
- on FIELD TECH PO Diltiazem
- on FIELD TECH Amiodarone
Depression/anxiety
- to cont FIELD TECH Xanax
- on FIELD TECH Citalopram
ASCVD HX
PAD
Chronic HFpEF
-Statin, Lasix, aspirin continued
DVT Px: SCDs
Full code
Obs TLM
[2024-09-19 19:00] VITALS: BP 143/54
[2024-09-19 20:05] VITALS: BP 157/58; BMI 27.4
[2024-09-19] MEDS: COLACE 100 MG PO (21:22)
[2024-09-19] MEDS: LEXAPRO 5 MG PO (21:22)
[2024-09-19] MEDS: XANAX 1.5 MG PO (21:22)
[2024-09-19 23:30] VITALS: BP 146/53
[2024-09-20] MEDS: TYLENOL 650 MG PO (03:05)
[2024-09-20 03:35] VITALS: BP 141/70
[2024-09-20 06:00] VITALS: BMI 27.3
[2024-09-20 06:25] LABS: Hematocrit 25.5 % (37.0-47.0); Hemoglobin 8.7 g/dL (12.0-16.0); Mean Corp Hgb Conc. 34.1 g/dL (33.0-37.0); Mean Corpuscular Hgb 33.5 pg (27.0-31.0); Mean Corpuscular Volume 98.1 fL (81.0-99.0); Mean Platelet Volume 9.6 fL (7.4-10.4); Platelet Count 296 10^3/uL (130-400); Red Cell Dist. Width 14.9 % (11.5-14.5); White Blood Cell Count 5.7 10^3/uL (4.8-10.8)
[2024-09-20 07:31] VITALS: BP 150/79
[2024-09-20] MEDS: LASIX 40 MG PO (08:21)
[2024-09-20] MEDS: COLACE 100 MG PO ×2 (08:21→21:56)
[2024-09-20] MEDS: LEXAPRO 5 MG PO ×2 (08:22→21:56)
[2024-09-20] MEDS: METAMUCIL, KONSYL 1 PACKET PO (08:22)
[2024-09-20] MEDS: VITAMIN B-12 1000 MCG PO (08:22)
--- NOTE | 2024-09-20 10:41 | W.PN.VS ---
Addendum entered and electronically signed by Brendan Andres III, MD 09/20/24 13:28:
This patient was seen and examined in collaboration with LYNDON Albert. I agree with the history and physical exam as well as the assessment and plan.
Signed:
Brendan Andres III, MD
[facility]
[phone] (ckmd)
Original Note:
Today's Communication / Plan
-
Patient seen examined bedside with Dr. Brendan Andres III, below plan reviewed with attending.
Assessment/Plan
-
Assessment: 84-year-old female status post left upper extremity hematoma evacuation
Plan:
Continue daily dressing change with dry gauze to old RELL drain site and then Dani wrap from fingertips to upper arm with mild compression, also change if soiled
Would recommend holding anticoagulation until at least 09/22/2024
Subjective Data
-
Date of Service: September 20, 2024
Patient seen and examined at bedside, reports some evidence of scant bleeding overnight that required dressing change by nursing staff otherwise has had no other episodes of bleeding from left upper extremity. Reports adequate postoperative pain
management.
Objective Data
-
Vital Signs
Temp Pulse Resp BP Pulse Ox
98.0 F 70 16 150/79 97
09/20/24 07:31 09/20/24 08:21 09/20/24 07:31 09/20/24 08:21 09/20/24 09:32
Intake and Output
09/19/24 09/20/24 09/21/24
06:59 06:59 06:59
Intake Total 240 / 240
Balance 240 / 240
Intake:
Oral fluids 240 / 240
Other:
Number of approximated MODERATE 1
amounts of urine
Lab Results
09/20/24 05:34
09/19/24 15:
Calcium 9.7 mg/dl (8.4-10.2) 09/19/24 15:
Total Bilirubin 1.1 mg/dl (0.2-1.3) 09/19/24 15:
AST 26 U/L (14-36) 09/19/24 15:
ALT 21 U/L (0-35) 09/19/24 15:
Alkaline Phosphatase 96 U/L (38-126) 09/19/24 15:
Total Protein 7.0 g/dl (6.3-8.2) 09/19/24:
Albumin 4.4 g/dl (3.5-5.0) 09/19/24 15:
Physical Exam
-
No apparent distress, resting bed comfortably
No tachycardia
No dyspnea on room air
Left upper extremity with trace edema, all compartments soft, ecchymosis from upper arm to hand unchanged from prior assessment, left hand warm, left radial pulse +2 palpable
Left upper extremity dressing replaced, florin well approximated
--- NOTE | 2024-09-20 11:03 | W.PN.HOSP.TC ---
Today's Communication/Plan
-
f/w vascular recommendations
Pain control with Tylenol
CBC in AM
Assessment / Plan
Assessment / Plan
Physical Exam
Constitutional: No acute distress and Comfortable
HEENT: Moist mucous membranes
Cardiovascular: S1-S2, systolic murmur absent and Rhythm/rate is irregular
Respiratory: No wheezes
GI: Soft, nontender
: no hematuria
MSK: Left arm dressing
Neuro: AO to self and surroundings, she followed commands
Psych: calm
83yo F with PMHx Afib, PAD, HLD, atopic d/o, HFpEF came after she fell in [facility] while being there on the trip. No LOC described. Patient said that she just misstepped when waking from the grass onto the pavement. However patient does have
chronic balance problem and planned for outpatient balance training. Found large LUE hematoma, underwent evacuation by VascSx on 09/12/24
A/P:
#rebleeding from recently evacuated left arm hematoma
Per-vascular:
Continue daily dressing change with dry gauze to old RELL drain site and then Dani wrap from fingertips to upper arm with mild compression, also change if soiled
Would recommend holding anticoagulation until at least 09/22/2024
IV Iron given last admission.
c/w pain control
#L2 hemangioma
#DJD
Tylenol
PT/OT
No follow up for the hematoma advised
#Atelectasis
Incentive spirometry
#Thyroid nodules
mid and lower pole of the left lobe of the thyroid gland measuring 1.4 cm and 1.3 cm in size
Outpatient follow up with PCP - patient had Hx of nodules and has US some time ago - discussed in details with patient and she verbalized understanding of the instructions
# Paroxysmal atrial fibrillation
cont rate/rhythm control
telemetry
Patient aware of increased stroke risk while holding Eliquis and agreeable with the mgmt
#ASCVD
#PAD
#Atopic D/O
#Chronic HFpEF
cont home meds
DVT ppx SCDs
Full code
Total time spent to see the patient, examine the patient, review data and lab results, discuss treatment plan with patient and nursing staff around 55 minutes
Anticipated Discharge: > 48 hours
Subjective/Interval History
-
Date of Service: September 20, 2024
No chest pain or sob
Mild pain in left arm, no bleeding
Objective Data
-
Labs:
Laboratory Results
09/20/24
05:34
WBC 5.7
Hgb 8.7 L
Hct 25.5 L
Plt Count 296
Vital Signs:
Vital Signs
Temp Pulse Resp BP Pulse Ox
98.0 F 70 16 150/79 97
09/20/24 07:31 09/20/24 08:21 09/20/24 07:31 09/20/24 08:21 09/20/24 09:32
I&O
09/19/24 09/20/24 09/21/24
06:59 06:59 06:59
Intake Total 240 / 240
Balance 240 / 240
[2024-09-20 11:15] VITALS: BP 144/70
[2024-09-20 15:34] VITALS: BP 143/61
--- NOTE | 2024-09-20 17:02 | CM ---
Addendum entered by Arlene Shaw RN 09/20/24 17:08:
TURPIN letter given explained . PT did not sign TURPIN letter on chart.
Original Note:
Alert awake oriented patient who lives at [facility].Pt had a fall. She uses walker cane and has wheelchair if needed. Offered VN she requested [facility] .
VN /[facility]
Pharmacy [facility]
PCP Dr Goodson
PLAN Home with [facility]
[2024-09-20] MEDS: LIPITOR 40 MG PO (17:23)
[2024-09-20] MEDS: ASPIR LOW (ENTERIC COATED) 81 MG PO (17:23)
[2024-09-20] MEDS: FOLVITE 0.4 MG PO (17:23)
[2024-09-20] MEDS: OSCAL 500 + D 500 MG PO (17:23)
[2024-09-20] MEDS: FLORASTOR 250 MG PO (17:23)
[2024-09-20] MEDS: CARDIZEM CD 120 MG PO (17:23)
[2024-09-20] MEDS: PACERONE 200 MG PO (17:23)
[2024-09-20 19:00] VITALS: BP 135/48
[2024-09-20] MEDS: TYLENOL 1000 MG PO (22:20)
[2024-09-20 23:00] VITALS: BP 133/60
[2024-09-20] MEDS: XANAX 1.5 MG PO (23:49)
[2024-09-21 03:00] VITALS: BP 139/62
[2024-09-21 06:00] VITALS: BMI 26.7
[2024-09-21 06:01] LABS: Hematocrit 27.7 % (37.0-47.0); Hemoglobin 9.3 g/dL (12.0-16.0); Mean Corp Hgb Conc. 33.6 g/dL (33.0-37.0); Mean Corpuscular Hgb 32.9 pg (27.0-31.0); Mean Corpuscular Volume 97.9 fL (81.0-99.0); Mean Platelet Volume 9.2 fL (7.4-10.4); Platelet Count 329 10^3/uL (130-400); Red Blood Cell Count 2.83 10^6/uL (4.20-5.40); Red Cell Dist. Width 15.1 % (11.5-14.5); White Blood Cell Count 5.1 10^3/uL (4.8-10.8)
[2024-09-21 07:28] VITALS: BP 149/66
[2024-09-21] MEDS: LASIX 40 MG PO (08:37)
[2024-09-21] MEDS: VITAMIN B-12 1000 MCG PO (08:38)
[2024-09-21] MEDS: COLACE 100 MG PO ×2 (08:38→19:38)
[2024-09-21] MEDS: LEXAPRO 5 MG PO ×2 (08:38→19:38)
[2024-09-21] MEDS: METAMUCIL, KONSYL 1 PACKET PO (08:39)
[2024-09-21] MEDS: TYLENOL 650 MG PO ×2 (08:45→19:38)
--- NOTE | 2024-09-21 10:58 | W.PN.HOSP.TC ---
Today's Communication/Plan
-
starting Eliquis 09/22 if ok with vascular surgery
Assessment / Plan
Assessment / Plan
Physical Exam
Constitutional: No acute distress and Comfortable
HEENT: Moist mucous membranes
Cardiovascular: S1-S2, systolic murmur absent and Rhythm/rate is irregular
Respiratory: No wheezes
GI: Soft, nontender
: no hematuria
MSK: Left arm dressing , good peripheral pulse.
Neuro: AO to self and surroundings, she followed commands
Psych: calm
83yo F with PMHx Afib, PAD, HLD, atopic d/o, HFpEF came after she fell in [facility] while being there on the trip. No LOC described. Patient said that she just misstepped when waking from the grass onto the pavement. However patient does have
chronic balance problem and planned for outpatient balance training. Found large LUE hematoma, underwent evacuation by VascSx on 09/12/24
A/P:
#rebleeding from recently evacuated left arm hematoma
Per-vascular:
Continue daily dressing change with dry gauze to old RELL drain site and then Dani wrap from fingertips to upper arm with mild compression, also change if soiled
Would recommend holding anticoagulation until at least 09/22/2024
IV Iron given last admission.
c/w pain control
HGB stable around 9
#L2 hemangioma
#DJD
Tylenol
PT/OT
No follow up for the hematoma advised
#Pulmonary Atelectasis
no hypoxia.
#Thyroid nodules
mid and lower pole of the left lobe of the thyroid gland measuring 1.4 cm and 1.3 cm in size
Outpatient follow up with PCP - patient had Hx of nodules and has US some time ago - discussed in details with patient and she verbalized understanding of the instructions
# Paroxysmal atrial fibrillation
cont rate/rhythm control
telemetry
AC on hold until resuming 4/3 per vascular
#ASCVD
#PAD
#Atopic D/O
#Chronic HFpEF
cont home meds
DVT ppx SCDs
Full code
Total time spent to see the patient, examine the patient, review data and lab results, discuss treatment plan with patient and nursing staff around 55 minutes
Anticipated Discharge: 24 - 48 hours
Subjective/Interval History
-
Date of Service: September 21, 2024
No chest pain
less pain in left arm
Objective Data
-
Labs:
Laboratory Results
09/21/24
05:25
WBC 5.1
Hgb 9.3 L
Hct 27.7 L
Plt Count 329
Vital Signs:
Vital Signs
Temp Pulse Resp BP Pulse Ox
97.8 F 59 16 149/66 95
09/21/24 07:28 09/21/24 08:37 09/21/24 07:28 09/21/24 08:37 09/21/24 07:28
I&O
09/20/24 09/21/24 09/22/24
06:59 06:59 06:59
Intake Total 240 / 240 660 / 660
Balance 240 / 240 660 / 660
[2024-09-21 11:23] VITALS: BP 147/61
--- NOTE | 2024-09-21 13:05 | PTCARENOTE ---
patient improved in left arm after PRN Tylenol. elevated on pillows and ken wrap c/d/i. tolerating diet, independent to br, vss, will continue to monitor.
[2024-09-21 14:58] VITALS: BP 117/38
--- NOTE | 2024-09-21 17:12 | W.PN.VS ---
Today's Communication / Plan
-
Seen and assessed with Dr. Bai
Assessment/Plan
-
Assessment: 84-year-old female status post left upper extremity hematoma evacuation
Plan:
Continue daily dressing change with dry gauze to old RELL drain site and then Dani wrap from fingertips to upper arm with mild compression, also change if soiled
Would recommend holding anticoagulation until at least 09/22/2024
Follow-up as outpatient
Subjective Data
-
Date of Service: September 21, 2024
Patient seen at bedside this afternoon with Dr. Bai. Patient offers no complaints at this time. Patient's arm is soft. No events overnight
Objective Data
-
Vital Signs
Temp Pulse Resp BP Pulse Ox
97.5 F 54 16 117/38 96
09/21/24 14:58 09/21/24 14:58 09/21/24 14:58 09/21/24 14:58 09/21/24 14:58
Intake and Output
09/20/24 09/21/24 09/22/24
06:59 06:59 06:59
Intake Total 240 / 240 660 / 660 660 / 660
Balance 240 / 240 660 / 660 660 / 660
Intake:
Oral fluids 240 / 240 660 / 660 660 / 660
Other:
Number of approximated MODERATE 1 1 2
amounts of urine
Lab Results
09/21/24 05:25
09/19/24 15:27
Calcium 9.7 mg/dl (8.4-10.2) 09/19/24 15:27
Total Bilirubin 1.1 mg/dl (0.2-1.3) 09/19/24 15:27
AST 26 U/L (14-36) 09/19/24 15:27
ALT 21 U/L (0-35) 09/19/24 15:27
Alkaline Phosphatase 96 U/L (38-126) 09/19/24 15:27
Total Protein 7.0 g/dl (6.3-8.2) 09/19/24 15:
Albumin 4.4 g/dl (3.5-5.0) 09/19/24 15:27
Physical Exam
-
No apparent distress, resting bed comfortably
No tachycardia
No dyspnea on room air
Left upper extremity with mild edema, all compartments soft, ecchymosis from upper arm to hand unchanged from prior assessment, left hand warm, left radial pulse +2 palpable
Left upper extremity dressing replaced
[2024-09-21] MEDS: ASPIR LOW (ENTERIC COATED) 81 MG PO (17:14)
[2024-09-21] MEDS: LIPITOR 40 MG PO (17:14)
[2024-09-21] MEDS: FOLVITE 0.4 MG PO (17:14)
[2024-09-21] MEDS: OSCAL 500 + D 500 MG PO (17:14)
[2024-09-21] MEDS: PACERONE 200 MG PO (17:14)
[2024-09-21] MEDS: CARDIZEM CD 120 MG PO (17:15)
[2024-09-21] MEDS: FLORASTOR 250 MG PO (17:18)
[2024-09-21 19:55] VITALS: BP 138/57
[2024-09-21] MEDS: XANAX 1.5 MG PO (23:14)
[2024-09-21 23:15] VITALS: BP 150/63
[2024-09-22 03:55] VITALS: BP 146/71
[2024-09-22 05:33] LABS: Hematocrit 28.3 % (37.0-47.0); Hemoglobin 9.3 g/dL (12.0-16.0); Mean Corp Hgb Conc. 32.9 g/dL (33.0-37.0); Mean Corpuscular Hgb 32.6 pg (27.0-31.0); Mean Corpuscular Volume 99.3 fL (81.0-99.0); Mean Platelet Volume 8.8 fL (7.4-10.4); Platelet Count 316 10^3/uL (130-400); Red Blood Cell Count 2.85 10^6/uL (4.20-5.40); White Blood Cell Count 5.5 10^3/uL (4.8-10.8)
[2024-09-22 06:00] VITALS: BMI 26.7
[2024-09-22 07:05] VITALS: BP 134/46
[2024-09-22] MEDS: VITAMIN B-12 1000 MCG PO (08:51)
[2024-09-22] MEDS: LASIX 40 MG PO (08:51)
[2024-09-22] MEDS: COLACE 100 MG PO (08:52)
[2024-09-22] MEDS: METAMUCIL, KONSYL 1 PACKET PO (08:52)
[2024-09-22] MEDS: ELIQUIS 5 MG PO (08:52)
[2024-09-22] MEDS: LEXAPRO 5 MG PO (08:52)
[2024-09-22] MEDS: TYLENOL 650 MG PO (08:56)
--- NOTE | 2024-09-22 09:33 | W.PN.HOSP.TC ---
Today's Communication/Plan
-
dc
Assessment / Plan
Assessment / Plan
Physical Exam
Constitutional: No acute distress and Comfortable
HEENT: Moist mucous membranes
Cardiovascular: S1-S2, systolic murmur absent and Rhythm/rate is irregular
Respiratory: No wheezes
GI: Soft, nontender
: no hematuria
MSK: Left arm dressing , good peripheral pulse.
Neuro: AO to self and surroundings, she followed commands
Psych: calm
83yo F with PMHx Afib, PAD, HLD, atopic d/o, HFpEF came after she fell in [facility] while being there on the trip. No LOC described. Patient said that she just misstepped when waking from the grass onto the pavement. However patient does have
chronic balance problem and planned for outpatient balance training. Found large LUE hematoma, underwent evacuation by VascSx on 09/12/24
A/P:
#rebleeding from recently evacuated left arm hematoma
Per-vascular:
Continue daily dressing change with dry gauze to old RELL drain site and then Dani wrap from fingertips to upper arm with mild compression, also change if soiled
Would recommend holding anticoagulation until at least 09/22/2024
IV Iron given last admission.
c/w pain control
HGB stable around 9.3
#L2 hemangioma
#DJD
Tylenol
PT/OT
#Pulmonary Atelectasis
no hypoxia.
#Thyroid nodules
mid and lower pole of the left lobe of the thyroid gland measuring 1.4 cm and 1.3 cm in size
Outpatient follow up with PCP - patient had Hx of nodules and has US some time ago - discussed in details with patient and she verbalized understanding of the instructions
# Paroxysmal atrial fibrillation
cont rate/rhythm control
telemetry
AC on hold until resuming 09/22 per vascular
#ASCVD
#PAD
#Atopic D/O
#Chronic HFpEF
cont home meds
DVT ppx SCDs
Full code
Total discharge time spent to see the patient, examine the patient, review data and lab results, discuss tdischarge plan with patient and nursing staff around 65 minutes
Anticipated Discharge: Today
Subjective/Interval History
-
Date of Service: September 22, 2024
No pain issues
feels well, slept well
Objective Data
-
Labs:
Laboratory Results
09/22/24
05:21
WBC 5.5
Hgb 9.3 L
Hct 28.3 L
Plt Count 316
Vital Signs:
Vital Signs
Temp Pulse Resp BP Pulse Ox
98.0 F 52 18 134/46 99
09/22/24 07:05 09/22/24 08:51 09/22/24 07:05 09/22/24 08:51 09/22/24 07:05
I&O
09/21/24 09/22/24 09/23/24
06:59 06:59 06:59
Intake Total 660 / 660 780 / 780
Balance 660 / 660 780 / 780
[2024-09-22 11:05] VITALS: BP 139/60
--- NOTE | 2024-09-22 11:15 | CM ---
MD entered order for discharge .
Spoke with pt she said Kadie dgt will drive her home.
Alexis RAM in care port . Spoke with Sarika at [facility] notified pt was dc today .She said they will resume care.
Alexis RAM fax [phone]
PLAN Home with Alexis RAM
--- NOTE | 2024-09-23 12:26 | W.DCSUMMARY ---
Discharge Summary
Discharge Data
Date of Admission: 09/19/24
Date of Discharge: 09/22/24
-
Pending Results: No
Hospital Course
84 years old female who was admitted to the hospital for bleeding from hematoma evacuation site. Patient was endorsed on hospital after treating her for intra muscular hematoma that she developed and had evacuation. Patient was taking Eliquis.
She denied injury. She was evaluated by vascular surgery recommended to do daily dressing change and monitoring of him. Patient did not have recurrence of bleeding. She was started back on Eliquis with no bleeding. She was able to ambulate
without skilled needs. She remained hemodynamically stable and was discharged home in a stable condition.
Discharge Plan
-
Patient Disposition: Home (Routine Discharge)
Discharge Diagnosis/Procedures: Bleeding from hematoma drainage site
Diet: As tolerated
Referrals:
Jesica Cueto PA-C [Specified Professional Personl] - 10/04/24 1:00 pm (Vascular surgery office follow-up)
Kadie Goodson MD [Family Provider] -
Prescriptions:
Continued
alprazolam 1 MG tablet
1.5 mg PO HS
[place]-3 Plus Vitamin D3 1 EACH capsule
1 ea PO BID
acetaminophen 650 mg Tablet Extended Release
1,300 mg PO BIDPRN PRN (Reason: pain)
diltiazem HCl 120 mg Capsule,Extended Release 24 Hr
120 mg PO QPM
Saccharomyces boulardii [Florastor] 250 mg Capsule
250 mg PO QPM
docusate sodium 100 mg capsule
100 mg PO BID
amiodarone 200 mg Tablet
200 mg PO QPM
folic acid 400 mcg Tablet
0.4 mg PO QPM
escitalopram oxalate 5 mg Tablet
5 mg PO BID
Eliquis 5 mg Tablet
5 mg PO BID
Caltrate 600 plus D 600 mg-20 mcg (800 unit) Tablet,Chewable
1 tab PO QPM
atorvastatin 40 mg tablet
40 mg PO QPM Qty: 90 3RF
furosemide [Lasix] 40 mg tablet
40 mg PO DAILY Qty: 90 3RF
nitroglycerin 0.4 mg tablet, sublingual
0.4 mg sublingual [id number] PRN (Reason: chest pain) Qty: 25 2RF
cyanocobalamin (vitamin B-12) 1,000 mcg Tablet
1,000 mcg PO DAILY
fexofenadine 180 mg Tablet
180 mg PO DAILYPRN PRN (Reason: allergies)
famotidine 20 mg Tablet
20 mg PO HSPRN PRN (Reason: if tums ineffective/unavailable)
calcium carbonate [Tums] 200 mg calcium (500 mg) Tablet,Chewable
400 mg PO TIDPRN PRN (Reason: gi issues)
biotin 5 mg Tablet
5 mg PO DAILY
Metamucil 3.4 gram/5.4 gram Powder
2 tsp PO DAILY
aspirin 81 mg tablet,delayed release (DR/EC)
81 mg PO QPM
Discharge Orders:
Discharge Patient (As Directed); Ordered 09/22/24
Ordered By: Marlee Dyer
Discharge Date and Time
Discharge Date/Time: 09/22/24 13:01
Print Language: HAITIAN
== END 2024-09-22 13:01 | disposition home health service (06) ==
LOC: 3 WEST ACU 18:25
PROVIDERS: Registered Nurse; ADMITTING PHYSICIAN Internal Medicine; ATTENDING PHYSICIAN Internal Medicine; EMERGENCY PHYSICIAN Student in an Organized Health Care Education/Training Program; FAMILY PHYSICIAN Internal Medicine Geriatric Medicine; OTHER PHYSICIAN Surgery Vascular Surgery
DX: L76.22 Postprocedural hemorrhage of skin and subcutaneous tissue following other procedure (principal); Y83.8 Other surgical procedures as the cause of abnormal reaction of the patient, or of later complication, without mention of misadventure at the time of the procedure; M79.89 Other specified soft tissue disorders; D63.8 Anemia in other chronic diseases classified elsewhere; E04.2 Nontoxic multinodular goiter; I48.0 Paroxysmal atrial fibrillation; F32.A Depression, unspecified; F41.9 Anxiety disorder, unspecified; I25.10 Atherosclerotic heart disease of native coronary artery without angina pectoris; I50.32 Chronic diastolic (congestive) heart failure; I11.0 Hypertensive heart disease with heart failure; D18.09 Hemangioma of other sites; J98.11 Atelectasis; Z79.01 Long term (current) use of anticoagulants
CPT/HCPCS: 73206; 80053; 85025; 85027; 85610; 85730; 87070; 93005; 99285; G0378; Q9967

== ENCOUNTER → 2024-11-23 19:31 | Outpatient (REF) | payer OTHER, SELFPAY | LOC: WDC 19:31 | PROVIDERS: ATTENDING PHYSICIAN Internal Medicine Geriatric Medicine | DX: Z12.31 Encounter for screening mammogram for malignant neoplasm of breast (principal) | CPT/HCPCS: 77063; 77067 ==

== ENCOUNTER → 2025-01-24 13:43 | Outpatient (REF) | payer OTHER, SELFPAY | LOC: RAD 13:43 | PROVIDERS: ATTENDING PHYSICIAN Nurse Practitioner Adult Health | DX: Z13.820 Encounter for screening for osteoporosis (principal); Z78.0 Asymptomatic menopausal state; M85.89 Other specified disorders of bone density and structure, multiple sites | CPT/HCPCS: 77080 ==

== ENCOUNTER → 2025-03-08 13:06 | Outpatient (REF) | payer OTHER, SELFPAY | LOC: RAD 13:06 | PROVIDERS: ATTENDING PHYSICIAN Physician Assistant; FAMILY PHYSICIAN Internal Medicine Geriatric Medicine | DX: I77.9 Disorder of arteries and arterioles, unspecified (principal) | CPT/HCPCS: 93922; 93925 ==

== ENCOUNTER 2025-04-07 14:03 | Emergency (ER) | payer MEDICARE, SELFPAY ==
[2025-04-07 14:05] VITALS: BP 162/81
--- NOTE | 2025-04-07 15:22 | ED.MUSCINJ ---
HPI-Injury
General
Chief Complaint: Fall
Source: patient
Exam Limitations: none
Time Seen by Provider: 04/07/25 15:09
History of Present Illness-Injury
Initial Injury comments:
84-year-old female on [facility] presents for evaluation of for fall she sustained Thursday, 2 days ago. She tripped falling forward landing on her left knee and does not know if she hit her head. She was seen by the advanced quality engineer today routinely but
was sent here because of a fall on . No abdominal pain or chest pain. No other complaints
Past History
Past History
ED Past Medical History: Cancer, HTN, Hypercholesterolemia and Other
ED Past Surgical History: Appendectomy, Bowel resection and Other (Ovarian cyst removal, 'colon' surgery)
Social History
Tobacco: Non-smoker
Alcohol: Occasional
Drug: None
Personal:
Living: with family
Phy Exam
Physical Exam
Physical Exam:
General: Well-appearing female no acute respiratory distress
HEENT normal cephalic no scalp abrasion or hematoma pupils equal round reactive to light. Heart: Regular rate and rhythm lungs: Clear no wheeze abdomen is soft nontender
Musculoskeletal exam: The spine is nontender over the midline. She is tender with swelling and ecchymosis noted over the anterior left knee range of motion all extremities.
Skin is intact without laceration
Injury Course
Orders/Labs/Results
Orders:
Orders
04/07/25 14:10
CT Head W/o Iv Contrast Urgent
Comment:
Reason For Exam: fall, on [facility]
CR Knee - Left 4 Or More View* Urgent
Comment:
Reason For Exam: fall, injury
MDM/Problems Addressed
Differential Diagnosis Includes:
Mechanical fall [address] [facility] CT of the head was ordered through triage to evaluate for intracranial hemorrhage. This is negative. X-ray left knee ordered as well and there is no fracture or dislocation. Suspect hematoma. No indication
for admission. She expresses her desire to go home. Stable for discharge
*Pulse Oximetry
SaO2: 99
Patient hypoxic: no
*Critical Care Note
Total Time (30-74mins, 75-104mins- exclusive of procedures): Not Applicable
ED Attending Note
-
Portions of this chart may have been created with voice recognition software.� Occasional wrong word or��sound alike� substitutions may have occurred due to the inherent limitations of voice recognition software.
Discharge Plan
Departure
Patient Disposition: Home (Routine Discharge)
Date of Disposition: 04/07/25
Time of Disposition: 15:29
Patient with high blood pressure during this ER visit?: No
Discharge Problem:
Contusion
Instructions: Contusion (DC)
Prescriptions:
No Action
alprazolam 1 MG tablet
1.5 mg PO HS
[place]-3 Plus Vitamin D3 1 EACH capsule
1 ea PO BID
acetaminophen 650 mg Tablet Extended Release
1,300 mg PO BIDPRN PRN (Reason: pain)
diltiazem HCl 120 mg Capsule,Extended Release 24 Hr
120 mg PO QPM
Saccharomyces boulardii [Florastor] 250 mg Capsule
250 mg PO QPM
docusate sodium 100 mg capsule
100 mg PO BID
amiodarone 200 mg Tablet
200 mg PO QPM
folic acid 400 mcg Tablet
0.4 mg PO QPM
escitalopram oxalate 5 mg Tablet
5 mg PO BID
Eliquis 5 mg Tablet
5 mg PO BID
Caltrate 600 plus D 600 mg-20 mcg (800 unit) Tablet,Chewable
1 tab PO QPM
atorvastatin 40 mg tablet
40 mg PO QPM Qty: 90 3RF
furosemide [Lasix] 40 mg tablet
40 mg PO DAILY Qty: 90 3RF
nitroglycerin 0.4 mg tablet, sublingual
0.4 mg sublingual [id number] PRN (Reason: chest pain) Qty: 25 2RF
cyanocobalamin (vitamin B-12) 1,000 mcg Tablet
1,000 mcg PO DAILY
fexofenadine 180 mg Tablet
180 mg PO DAILYPRN PRN (Reason: allergies)
famotidine 20 mg Tablet
20 mg PO HSPRN PRN (Reason: if tums ineffective/unavailable)
calcium carbonate [Tums] 200 mg calcium (500 mg) Tablet,Chewable
400 mg PO TIDPRN PRN (Reason: gi issues)
biotin 5 mg Tablet
5 mg PO DAILY
Metamucil 3.4 gram/5.4 gram Powder
2 tsp PO DAILY
aspirin 81 mg tablet,delayed release (DR/EC)
81 mg PO QPM
Referrals:
Koffi Moreno MD [Family Provider]
Activity Restrictions/Additional Instructions:
Continue to apply ice to the knee to help with swelling. Use Tylenol if needed for pain peer return if worse otherwise follow-up
Interventions
Interventions:
*Risk Screen - Suicide Last Done: 04/07/25 14:09
*General Assessment Last Done: 04/07/25 14:09
*Neglect/Abuse Screening Last Done: 04/07/25 14:09
*ED COVID-19 Vaccine History Last Done: 04/07/25 14:09
*ED Influenza Vaccine History Last Done: 04/07/25 14:09
Discharge Date and Time
Print Language: ROMANIAN
== END 2025-04-07 15:47 | disposition home or self-care (01) ==
LOC: EMR 14:03
PROVIDERS: EMERGENCY PHYSICIAN Emergency Medicine; FAMILY PHYSICIAN Internal Medicine
DX: S80.02XA Contusion of left knee, initial encounter (principal); W01.0XXA Fall on same level from slipping, tripping and stumbling without subsequent striking against object, initial encounter; I10 Essential (primary) hypertension; E78.00 Pure hypercholesterolemia, unspecified; Z79.01 Long term (current) use of anticoagulants; Z90.49 Acquired absence of other specified parts of digestive tract
CPT/HCPCS: 99284; 70450; 73564

== ENCOUNTER → 2025-04-17 16:34 | Outpatient (REF) | payer MEDICARE, SELFPAY | LOC: REG 16:34 | PROVIDERS: ATTENDING PHYSICIAN Internal Medicine; FAMILY PHYSICIAN Podiatrist | DX: S99.929A Unspecified injury of unspecified foot, initial encounter (principal); M79.674 Pain in right toe(s) | CPT/HCPCS: 73630 ==

== ENCOUNTER → 2025-05-08 10:28 | Outpatient (REF) | payer MEDICARE, SELFPAY | LOC: RAD 10:28 | PROVIDERS: ATTENDING PHYSICIAN Podiatrist | DX: S92.414D Nondisplaced fracture of proximal phalanx of right great toe, subsequent encounter for fracture with routine healing (principal) | CPT/HCPCS: 73630 ==

== ENCOUNTER → 2025-06-13 14:28 | Outpatient (REF) | payer MEDICARE, SELFPAY | LOC: RAD 14:28 | PROVIDERS: ATTENDING PHYSICIAN Podiatrist | DX: S92.414D Nondisplaced fracture of proximal phalanx of right great toe, subsequent encounter for fracture with routine healing (principal) | CPT/HCPCS: 73630 ==